=== PATIENT | female | born 1990 ===

== ENCOUNTER 2019-12-10 17:40 | Emergency (ER) | payer OTHER, SELFPAY ==
--- NOTE | 2019-12-10 | XR_ITS ---
EXAMINATION: XR CHEST CLINICAL INFORMATION: Painful cough COMPARISON: 09/14/2017 TECHNIQUE: Frontal view of the chest was obtained. FINDINGS: Lung volumes are low, decreased from the prior study. No focal consolidation or mass. Normal pulmonary vascularity. No pleural effusion or pneumothorax. Normal heart size. IMPRESSION: Low lung volumes but no acute pulmonary disease.
[2019-12-10 18:05] VITALS: BP 160/105; PULSE 104; RESP 22; TEMP 37.7; O2SAT 98
[2019-12-10 18:22] VITALS: BP 160/99; PULSE 98; RESP 18; TEMP 37.7; O2SAT 98; BMI 61.9
--- NOTE | 2019-12-10 19:18 | ED_ITS ---
HPI - General Adult General Chief complaint: General Medical <Ke Orourke NP - Last Filed: 12/10/19 19:23> Stated complaint: COUGH <Ke Orourke NP - Last Filed: 12/10/19 19:23> Time Seen by Provider: 12/10/19 19:18 <Ke Orourke NP - Last Filed: 12/10/19 19:23> Source: patient <Ke Orourke NP - Last Filed: 12/10/19 19:23> Mode of arrival: ambulatory <Ke Orourke NP - Last Filed: 12/10/19 19:23> Limitations: no limitations <Ke Orourke NP - Last Filed: 12/10/19 19:23> History of Present Illness HPI narrative: 29 old female with history of asthma states she had slight URI about a week and half ago or so and since then though symptoms resolved of rhinorrhea and congestion but now has had a nagging cough that just can not seem to go away. She denies any shortness of breath. Slight discomfort in the chest with the cough. No recent travel or sick contacts. No fluctuation weight. <Ke Orourke NP - Last Filed: 12/10/19 19:23> Onset (ago): week(s) <Ke Orourke NP - Last Filed: 12/10/19 19:23> Severity: moderate <Ke Orourke NP - Last Filed: 12/10/19 19:23> Quality: aching <Ke Orourke NP - Last Filed: 12/10/19 19:23> Treatments prior to arrival: none <Ke Orourke NP - Last Filed: 12/10/19 19:23> Related Data Home medications: Previous Rx's Medication Instructions Recorded albuterol sulfate 2 puff INHALATION 6XD PRN #18 g 12/10/19 azithromycin [Zithromax Z-José Miguel] 250 mg PO DAILY 5 Days #6 tab 12/10/19 prednisone 40 mg PO DAILY #10 tab 12/10/19 <Ke Orourke NP - Last Filed: 12/10/19 19:23> Allergies/adverse reactions: Allergies Allergy/AdvReac Type Severity Reaction Status Date / Time amoxicillin [Amoxicillin] Allergy Unknown UNKNOWN, Unverified 11/11/19 15:59 rash, rash walnut Allergy Unknown UNKNOWN Unverified 11/11/19 15:59 Walnuts Allergy Unknown itching Uncoded 04/26/19 00:00 walnuts Allergy Unknown throat Uncoded 09/14/19 00:00 itching <Ke Orourke NP - Last Filed: 12/10/19 19:23> Review of Systems Review of Systems: Constitutional: No Weight loss, No Fever, No Chills, No Night Sweats, No Fatigue, No Malaise ENT/Mouth: No Hearing loss, No Ear Pain, No Nasal Congestion, No Sinus Pain, No Hoarseness, No sore throat, No Rhinorrhea, No Swallowing Difficulty Eyes: No Eye Pain, No Swelling, No Redness, No Foreign Body, No Discharge, No Vision Changes Cardiovascular: No Chest Pain, No SOB, No Dyspnea on Exertion, No Orthopnea, No Edema, No Palpitations Respiratory: + Cough, No Sputum, No Wheezing, No Smoke Exposure, No Dyspnea Gastrointestinal: No Nausea, No Vomiting, No Diarrhea, No Constipation, No abdominal Pain, No Hematochezia, No Melena Genitourinary: no irregular bleeding, No Dysuria, No Urinary Frequency, No Hematuria, No Urinary Incontinence, No Urgency, No Flank Pain, No Urinary Flow Changes, No Hesitancy Musculoskeletal: No joint pain, No Myalgias, No Joint Swelling Skin: No Skin Lesions, No rash Neuro: No Weakness, No Numbness, No Paresthesias, No Loss of Consciousness, No Dizziness, No Headache Psych: No Anxiety/Panic, No Depression, No SI/HI/AH/VH, No Social Issues Heme/Lymph: No Bruising, No Bleeding,No Lymphadenopathy Endocrine: No Polyuria, No Polydipsia, No Temperature Intolerance <Ke Orourke NP - Last Filed: 12/10/19 19:23> Yes all other systems are reviewed and are negative <Ke Orourke NP - Last Filed: 12/10/19 19:23> PMFSH Past Medical History Attestation statement: The following information was validated with the patient. <Ke Orourke NP - Last Filed: 12/10/19 19:23> Medical History: Medical History (Updated 12/11/19 @ 00:01 by Armand Sutherland) Acute anxiety Anemia Asthma Depression HTN (hypertension) <Ke Orourke NP - Last Filed: 12/10/19 19:23> Social History Social History: Social History Alcohol intake: never Smoked in Last 30 Days: No Use of substances other than those prescribed or required for medical reasons: Yes Advance Directives: No Advance Directives Information Provided: No <Ke Orourke NP - Last Filed: 12/10/19 19:23> Physical Exam Vital Signs: Vital Signs: Vital Signs Temp Pulse Resp BP Pulse Ox 12/10/19 18:22 99.8 F 98 18 160/99 H 98 12/10/19 18:05 99.9 F 104 H 22 H 160/105 H 98 Body Mass Index 61.9 Reviwed <Ke Orourke NP - Last Filed: 12/10/19 19:23> Vital Signs: Vital Signs Temp Pulse Resp BP Pulse Ox 12/10/19 18:22 99.8 F 98 18 160/99 H 98 12/10/19 18:05 99.9 F 104 H 22 H 160/105 H 98 Body Mass Index 61.9 <Zack Das MD - Last Filed: 12/14/19 14:46> Const: General: cooperative and healthy appearing; No acute distress or intoxicated appearing <Ke Orourke NP - Last Filed: 12/10/19 19:23> Nutritional Appearance: average body habitus <Ke Orourke NP - Last Filed: 12/10/19 19:23> Orientation/consciousness: patient oriented x3 <Ke Orourke NP - Last Filed: 12/10/19 19:23> HENMT: Head: Yes normal to inspection <Ke Orourke NP - Last Filed: 11/24 08/13 19:23> Ears: hearing grossly normal bilaterally <Ke Orourke NP - Last Filed: 12/10/19 19:23> Eyes: General: appearance normal, both eyes and all related structures <Ke Orourke NP - Last Filed: 12/10/19 19:23> Visual Matthews: normal visual matthews by confrontation <Ke Orourke NP - Last Filed: 12/10/19 19:23> Neck: Neck: Yes normal visual inspection and No tender <Ke Orourke NP - Last Filed: 12/10/19 19:23> Thyroid: Thyroid normal <Ke Orourke - Last Filed: 12/10/19 19:23> Chest: Chest palpation & inspection: normal inspection of the chest [facility] Last Filed: 12/10/19 19:23> Resp: Other: Mild dry bronchial cough <[facility] - Last Filed: 12/10/19 19:23> Effort & Inspection: normal respiratory effort <[facility] - Last Filed: 12/10/19 19:23> Cardio: Jugular venous distension: no JVD <[facility] - Last Filed: 12/10/19 19:23> GI: Inspection: Yes normal to inspection <[facility] - Last Filed: 12/10/19 19:23> Percussion: Yes normal to percussion <[facility] - Last Filed: 12/10/19 19:23> Auscultation: normal bowel sounds <[facility] - Last Filed: 12/10/19 19:23> : General: Yes no CVA tenderness <[facility] - Last Filed: 12/10/19 19:23> Back/Spine/Pelvis: Back: no CVA tenderness <[facility] - Last Filed: 12/10/19 19:23> Skin: General skin exam: no rashes or lesions noted <[facility] - Last Filed: 12/10/19 19:23> Neuro: General: patient oriented x3 [facility] - Last Filed: 12/10/19 19:23> Extrem: General: Yes normal to inspection <[facility] - Last Filed: 12/10/19 19:23> Course Course Course Narrative: I have reviewed the chart <Zack Das MD - Last Filed: 12/14/19 14:46> Medical Decision Making Imaging Data Chest x-ray: Radiologist's impression: Phoebe Chapa 29 F [address] [address] XRay Report Signed Patient: Phoebe ChapaMR#: [id number] : 1990Acct:[id number] Age/Sex: 29 / FADM Date: 12/10/19 Loc: HO.ED Attending Dr: Ordering Physician: Ke Orourke NP Date of Service: 12/10/19 Procedure(s): XR chest 1V Accession Number(s): [id number] cc: Ke Orourke NP~ EXAMINATION: XR CHEST CLINICAL INFORMATION: Painful cough COMPARISON: 09/14/2017 TECHNIQUE: Frontal view of the chest was obtained. FINDINGS: Lung volumes are low, decreased from the prior study. No focal consolidation or mass. Normal pulmonary vascularity. No pleural effusion or pneumothorax. Normal heart size. IMPRESSION: Low lung volumes but no acute pulmonary disease. Dictated By:DELROY CANDELARIO MD Signed By:<Electronically signed by DELROY CANDELARIO MD in [place]>12/10/191845 DD/ 40 TD/TT: Assistant Fitness Manager: TF <Ke Orourke NP - Last Filed: 12/10/19 19:23> Discharge Plan Discharge Clinical Impression: Bronchitis <Ke Orourke NP - Last Filed: 12/10/19 19:23> Patient Disposition: Home, Self-Care <Ke Orourke NP - Last Filed: 12/10/19 19:23> Instructions: Acute Bronchitis (ED) <Ke Orourke NP - Last Filed: 12/10/19 19:23> Additional Instructions: Social distancing Self-isolation Take medication prescribed Will call you with the COVID-19 test results in 3-4 days Return if any concerns or worse symptoms otherwise do a phone call visit with her primary care doctor for follow-up in the next 5-7 days Thank you <Ke Orourke NP - Last Filed: 12/10/19 19:23> Prescriptions: New azithromycin [Zithromax Z-José Miguel] 250 mg tablet 250 mg PO DAILY 5 Days Qty: 6 RF: 0 prednisone 20 mg tablet 40 mg PO DAILY Qty: 10 RF: 0 albuterol sulfate 90 mcg/actuation HFA aerosol inhaler 2 puff inhalation 6XD PRN (Reason: shortness of breath or wheezing) Qty: 18 RF: 0 <Ke Orourke NP - Last Filed: 12/10/19 19:23> Referrals: Devyn Power MD [Primary Care Provider] - 10 days <Ke Orourke NP - Last Filed: 12/10/19 19:23> Interventions: ED Discharge Assessment Last Done: 12/10/19 19:27 <Ke Orourke NP - Last Filed: 12/10/19 19:23> Discharge Date/Time: 12/10/19 19:30 <Ke Orourke NP - Last Filed: 12/10/19 19:23>
== END 2019-12-10 19:30 | disposition home or self-care (01) ==
PROVIDERS: Nurse Practitioner Primary Care; Emergency Provider Emergency Medicine; PCP Internal Medicine
DX: R05 Cough (principal); Z20.828 Contact with and (suspected) exposure to other viral communicable diseases; Z79.899 Other long term (current) drug therapy
CPT/HCPCS: 71045; 87635; 99283; 99284

== ENCOUNTER → 2020-01-25 12:53 | Outpatient (BNV) | payer OTHER, SELFPAY | PROVIDERS: PCP Internal Medicine; Visit Provider Internal Medicine Medical Oncology | DX: D50.0 Iron deficiency anemia secondary to blood loss (chronic) (principal); N92.0 Excessive and frequent menstruation with regular cycle | CPT/HCPCS: 99212; 99213; 99214 ==

== ENCOUNTER 2020-02-03 08:32 | Outpatient (REF) | payer OTHER, SELFPAY | END 2020-02-03 08:33 | disposition home or self-care (01) | LOC: HO.MDS 08:32 | PROVIDERS: PCP Internal Medicine; Visit Provider Internal Medicine Medical Oncology | DX: D50.9 Iron deficiency anemia, unspecified (principal) | CPT/HCPCS: 96365; 96366; J1200; J1750; Q0163 ==

== ENCOUNTER 2020-02-07 02:12 | Emergency (ER) | payer OTHER, SELFPAY ==
[2020-02-07 02:21] VITALS: BP 185/89; PULSE 99; RESP 20; TEMP 37.1; O2SAT 98
[2020-02-07 02:55] VITALS: BP 185/89; PULSE 99; RESP 20; TEMP 37.1; O2SAT 98; BMI 61.7
--- NOTE | 2020-02-07 05:12 | ED_ITS ---
HPI - Dizziness General Chief Complaint: Dizziness Stated Complaint: dizziness Time Seen by Provider: 02/07/20 02:32 Source: patient Mode of arrival: ambulatory Limitations: no limitations History of Present Illness HPI Narrative: As 29-year-old female with medical history of hypertension, depression, anxiety, vertigo, and recently diagnosed with diabetes and started on metformin. She states that she has been having consistent and multiple nonbloody episodes diarrhea that are not associated with fevers, chills, shortness of breath, chest pain/palpitations, contaminated food, abdominal discomfort. In addition patient states that she has continued to suffer from thirst and urinary frequency but denies any urinary pain/burning. She states that her dizziness is probably more like a lightheadedness and has been persistent for the past couple of days but she has been able to perform her ADLs Related Data Home Medications Medication Instructions Recorded Confirmed hydrochlorothiazide 25 mg tablet 25 mg PO DAILY 02/01/20 02/01/20 Previous Rx's Medication Instructions Recorded albuterol sulfate 2 puff INHALATION 6XD PRN #18 g 12/10/19 azithromycin [Zithromax Z-José Miguel] 250 mg PO DAILY 5 Days #6 tab 12/10/19 prednisone 40 mg PO DAILY #10 tab 12/10/19 bupropion HCl 150 mg tablet,12 hr 150 mg PO Q12H 90 Days #180 tab 12/20/19 sustained-release metformin 500 mg tablet 500 mg PO BID 30 Days #60 tab 01/25/20 duloxetine 60 mg capsule,delayed 60 mg PO DAILY 30 Days #30 cap 02/01/20 release fluticasone 100 mcg-salmeterol 50 1 inh INHALATION BID 30 Days #60 ea 02/01/20 mcg/dose blistr powdr for inhalation nitrofurantoin monohyd/m-cryst 100 mg PO Q12H 5 Days #10 cap 02/07/20 [Macrobid] Allergies Allergy/AdvReac Type Severity Reaction Status Date / Time amoxicillin [Amoxicillin] Allergy Unknown UNKNOWN, Verified 02/07/20 02:55 rash, rash walnuts Allergy Unknown throat Uncoded 09/14/19 00:00 itching Review of Systems Review of Systems: Pertinent positives and negatives as stated in HPI 10 point review of systems otherwise negative. PMFSH Past Medical History Source: nursing notes reviewed Medical History Acute anxiety Anemia Asthma Depression Diabetes HTN (hypertension) Insomnia Leukocytosis Thrombocytosis Surgical History History of laparoscopic cholecystectomy Family History Family History Sister Brain tumor Maternal Uncle Throat cancer Paternal Grandmother Leukemia Mother Fibromyalgia Maternal Grandmother Cancer of kidney Social History Social History Alcohol intake: never Advance Directives: No Physical Exam Vital Signs: Vital Signs: Last Vital Signs Temp 98.7 F 02/07/20 02:55 Pulse 99 02/07/20 02:55 Resp 20 02/07/20 02:55 BP 185/89 H 02/07/20 02:55 Pulse Ox 98 02/07/20 02:55 Body Mass Index 61.7 VITAL SIGNS: Reviewed. GENERAL: Well developed, well nourished, in no acute distress. HEAD: Normocephalic/atraumatic, EYES: PERRLA, EOMI intact without pain, no nystagmus/pallor/icterus noted EARS: Ext canals without abnormality, TMs non-bulging and non-erythematous NOSE: Nares patent bilateral OROPHARYNX: no oral lesions noted, posterior pharynx clear and non-erythematous without noted tonsillar enlargement/erythema/exudates NECK: Supple, no adenopathy LUNGS: Normal breath sounds. No adventitious sounds or accessory muscle use. SpO2<98> CARDIOVASCULAR: Regular rate and rhythm without noted murmurs, no JVD or lower extremity edema. ABDOMEN: Soft, non-tender, non-distended with bowel sounds. No rigidity. No guarding. No palpable masses or hernias noted MUSCULOSKELETAL: No tenderness, deformities, or effusions noted on gross inspection. EXTREMITIES: No cyanosis, clubbing or edema. SKIN: Inspection of the skin reveals no rashes, ulcerations, jaundice, pallor, or petechiae. NEUROLOGIC: Alert and oriented x 4. Strength and sensation to light touch were grossly intact x 4, no pronator drift, cerebellar testing is intact, cranial nerves 2-12 are grossly intact.. Course Course Course Narrative: This is a 29-year-old female with history and clinical pres entation most consistent with dehydration secondary to combination diabetes with medication side effects of metformin with multiple episodes of diarrhea. -labs, urinalysis, urine , IV fluid resuscitation On re-evaluation patient appears much more comfortable and states that she feels better. Patient's dizziness clearly associated with mild dehydration secondary to diarrhea due to new medication (metformin). The significant leukocytosis is duly noted and on review of urinalysis this is the likely cause. As she is not febrile, tachycardic, or tachypneic she will be discharged on oral antibiotics with strict instructions to follow-up with her primary care provider. MDM - Dizziness Lab Data Result diagrams: 02/07/20 05:25 02/07/20 05:25 Labs: Lab Results 02/07/20 02/07/20 02/07/20 Range/Units 05:25 05:25 06:22 WBC 18.7 H (4.8-10.8) X10*3/uL RBC 4.32 (4.20-5.50) X10*6/uL Hgb 9.5 L (12.0-16.0) g/dl Hct 32.0 L (37-47) % MCV 74.1 L (80-98) fL MCH 22.0 L (27.0-33.0) pg MCHC 29.7 L (31.0-35.0) g/dl RDW 19.9 H (11.0-16.0) % Plt Count 615 H (160-400) X10*3/uL MPV 8.6 L (9.4-12.3) fL Immature Gran % (Auto) 1.2 H (0.0-0.4) % Neut % (Auto) 70.6 (45-73) % Lymph % (Auto) 22.1 (20-40) % Whitfield % (Auto) 4.8 (2-11) % Eos % (Auto) 0.9 (0-4) % Baso % (Auto) 0.4 (0-2) % Lymph # (Auto) 4.1 (1.2-4.9) X10*3/uL Whitfield # (Auto) 0.9 (0.1-1.2) X10*3/uL Eos # (Auto) 0.2 (0.0-0.4) X10*3/uL Baso # (Auto) 0.1 (0.0-0.2) X10*3/uL Abs Immat Gran (auto) 0.23 H (0.00-0.03) X10*3/uL Absolute Neuts (auto) 13.2 H (2.0-8.3) X10*3/uL Absolute Nucleated RBC 0.000 (0.0-0.012) X10*3/uL Nucleated RBC % (auto) 0.0 (0.0-0.2) /100WBC Sodium 136 (135-145) mmol/L Potassium 4.7 (3.3-5.1) mmol/l Chloride 103 (96-108) mmol/L Carbon Dioxide 24 (22-29) mmol/L Anion Gap 14 (12-20) BUN 15 (9-16) mg/dL Creatinine 0.76 (0.5-1.4) mg/dL Estim Creat Clear Calc 167.6 Estimated GFR > 60 Random Glucose 113 (60-115) mg/dL Calcium 9.2 (8.4-10.2) mg/dL Total Bilirubin 0.2 (0.0-1.0) mg/dL AST 10 (5-31) U/L ALT 9 (0-31) U/L Alkaline Phosphatase 71 (39-117) U/L Total Protein 8.0 (6.5-8.0) g/dL Albumin 4.3 (3.5-5.0) g/dL Urine Color YELLOW Urine Appearance HAZY Urine pH 5.5 (5.0-8.0) Ur Specific Lookout >= 1.030 H (1.005-1.025) Urine Protein NEG (NEG-TRACE) MG/DL Urine Glucose (UA) NEG (NEG) MG/DL Urine Ketones NEG (NEG) MG/DL Urine Blood NEG (NEG) Urine Nitrite NEG (NEG) Ur Leukocyte Esterase TRACE H (NEG) Urine RBC 1-4 (0) /HPF Urine WBC 5-9 H (0-4) /HPF Ur Squamous Epith Cells 2+ /LPF Urine Bacteria 2+ /LPF Urine Mucus 2+ /LPF Urine Test NEGATIVE (NEGATIVE) Acetone, Qual Negative (Negative) Discharge Plan Discharge Clinical Impression: Dehydration UTI (urinary tract infection) Qualifiers: Urinary tract infection type: site unspecified Hematuria presence: without hematuria Qualified Code(s): N39.0 - Urinary tract infection, site not specified Patient Disposition: Home, Self-Care Instructions: Urinary Tract Infection in Women (ED) Additional Instructions: Please resume all home medications as prescribed. You have been started on antibiotic for your UTI and you should complete this medication entirely. Please follow-up with your primary care provider in the next 2-3 days. Please increase fluid hydration especially water. Prescriptions: New nitrofurantoin monohyd/m-cryst [Macrobid] 100 mg capsule 100 mg PO Q12H 5 Days Qty: 10 RF: 0 No Action bupropion HCl [Wellbutrin SR] 150 mg tablet sustained-release 12 hr 150 mg PO Q12H 90 Days Qty: 180 RF: 0 azithromycin [Zithromax Z-José Miguel] 250 mg tablet 250 mg PO DAILY 5 Days Qty: 6 RF: 0 prednisone 20 mg tablet 40 mg PO DAILY Qty: 10 RF: 0 albuterol sulfate 90 mcg/actuation HFA aerosol inhaler 2 puff inhalation 6XD PRN (Reason: shortness of breath or wheezing) Qty: 18 RF: 0 metformin 500 mg tablet 500 mg PO BID 30 Days Qty: 60 RF: 1 hydrochlorothiazide 25 mg tablet 25 mg PO DAILY RF: 0 duloxetine [Cymbalta] 60 mg capsule,delayed release(DR/EC) 60 mg PO DAILY 30 Days Qty: 30 RF: 3 fluticasone propion-salmeterol [Advair Diskus] 100-50 mcg/dose blister with device 1 inh inhalation BID 30 Days Qty: 60 RF: 3 Referrals: Devyn Power MD [Primary Care Provider] - 2 days (Re-evaluation and management symptoms secondary to metformin)
[2020-02-07] MEDS: 0.9 % Sodium Chloride 2,000 ML 999 ML IV (05:26)
[2020-02-07 05:41] LABS: Basophils Absolute Auto 0.1 X10*3/uL (0.0-0.2); Basophils Percent Auto 0.4 % (0-2); Eosinophils Absolute Auto 0.2 X10*3/uL (0.0-0.4); Eosinophils Percent Auto 0.9 % (0-4); Hemoglobin 9.5 g/dl (12.0-16.0); Imm Gran Abs Auto 0.23 X10*3/uL (0.00-0.03); Imm Gran Pct Auto 1.2 % (0.0-0.4); Lymphocytes Absolute Auto 4.1 X10*3/uL (1.2-4.9); Lymphocytes Percent Auto 22.1 % (20-40); Mean Corpuscular HGB Conc 29.7 g/dl (31.0-35.0); Mean Corpuscular Volume 74.1 fL (80-98); Mean Platelet Volume 8.6 fL (9.4-12.3); Monocytes Absolute Auto 0.9 X10*3/uL (0.1-1.2); Monocytes Percent Auto 4.8 % (2-11); Neutrophils Absolute Auto 13.2 X10*3/uL (2.0-8.3); Neutrophils Percent Auto 70.6 % (45-73); Platelet Count 615 X10*3/uL (160-400); Red Blood Count 4.32 X10*6/uL (4.20-5.50); Red Cell Distribution Width 19.9 % (11.0-16.0); White Blood Count 18.7 X10*3/uL (4.8-10.8)
[2020-02-07 05:42] LABS: MANUAL DIFF FLAG NO
[2020-02-07 05:53] LABS: Acetone, serum QL Negative (Negative)
[2020-02-07 06:05] LABS: Alanine Aminotransferase 9 U/L (0-31); Albumin Level 4.3 g/dL (3.5-5.0); Alkaline Phosphatase 71 U/L (39-117); Anion Gap 14 (12-20); Aspartate Amino Transferase 10 U/L (5-31); Bilirubin Total 0.2 mg/dL (0.0-1.0); Blood Urea Nitrogen 15 mg/dL (9-16); Calcium 9.2 mg/dL (8.4-10.2); Carbon Dioxide 24 mmol/L (22-29); Chloride 103 mmol/L (96-108); Creatinine Clr Calc Pharmacy 167.6; Estimated Glomerular Filt Rate > 60; Glucose Random 113 mg/dL (60-115); Potassium 4.7 mmol/l (3.3-5.1); Sodium 136 mmol/L (135-145)
[2020-02-07 06:29] LABS: Glucose Urine UA NEG (NEG); Leukocyte Esterase Urine TRACE (NEG); Nitrite Urine NEG (NEG); PH 5.5 (5.0-8.0); Specific Gravity - Urine >= 1.030 (1.005-1.025); Urine Blood NEG (NEG); Urine Ketones NEG (NEG); Urine Protein NEG (NEG-TRACE)
[2020-02-07 06:32] LABS: Appearance Urine HAZY; Color Urine YELLOW
[2020-02-07 06:33] LABS: UPreg QC Valid YES; Urine Pregnancy NEGATIVE (NEGATIVE)
[2020-02-07 06:42] LABS: Bacteria Urine 2+ /LPF; Mucus Urine 2+ /LPF; Squamous Epithelial Cell Urine 2+ /LPF
[2020-02-07 07:04] VITALS: BP 155/73; PULSE 89; RESP 17; TEMP 37.6; O2SAT 97
[2020-02-07 07:48] LABS: Glucose, Whole Blood 121 mg/dL (60-115)
[2020-02-07 08:22] LABS: Glucose, Whole Blood 108 mg/dL (60-115)
== END 2020-02-07 07:22 | disposition home or self-care (01) ==
PROVIDERS: Emergency Provider Student in an Organized Health Care Education/Training Program; PCP Internal Medicine
DX: E86.0 Dehydration (principal); N39.0 Urinary tract infection, site not specified; I10 Essential (primary) hypertension; E11.9 Type 2 diabetes mellitus without complications; F41.9 Anxiety disorder, unspecified; Z79.84 Long term (current) use of oral hypoglycemic drugs
CPT/HCPCS: 36415; 80053; 81001; 81025; 82009; 82947; 85025; 87086; 96360; 96361; 99284

== ENCOUNTER → 2020-03-28 12:34 | Outpatient (BNVA) | payer OTHER, SELFPAY | PROVIDERS: PCP Internal Medicine; Visit Provider Student in an Organized Health Care Education/Training Program ==

== ENCOUNTER 2020-05-29 14:11 | Outpatient (REF) | payer OTHER, SELFPAY | END 2020-05-29 14:12 | disposition home or self-care (01) | LOC: HO.LNP 14:11 | PROVIDERS: Visit Provider Hospitalist | DX: J40 Bronchitis, not specified as acute or chronic (principal); Z20.822 Contact with and (suspected) exposure to COVID-19 | CPT/HCPCS: U0003; U0005 ==

== ENCOUNTER 2020-08-18 16:19 | Outpatient (REF) | payer OTHER, SELFPAY ==
[2020-08-18 18:12] LABS: Estimated Average Glucose 126 mg/dL
[2020-08-18 18:27] LABS: Alanine Aminotransferase 7 U/L (0-31); Albumin Level 4.4 g/dL (3.5-5.0); Alkaline Phosphatase 85 U/L (39-117); Anion Gap 14 (12-20); Aspartate Amino Transferase 10 U/L (5-31); Bilirubin Total 0.2 mg/dL (0.0-1.0); Blood Urea Nitrogen 17 mg/dL (9-16); Calcium 9.6 mg/dL (8.4-10.2); Carbon Dioxide 25 mmol/L (22-29); Chloride 103 mmol/L (96-108); Creatinine Urine 264.07 mg/dL; Estimated Glomerular Filt Rate > 60; Glucose Random 141 mg/dL (60-115); Microalbum/Creatinine Ratio Ur 12.8 ug/mg cr; Potassium 4.6 mmol/L (3.3-5.1); Sodium 137 mmol/L (135-145); Total Protein 7.9 g/dL (6.5-8.0)
[2020-08-20 09:02] LABS: LDL Cholesterol Direct 119 mg/dL (<100)
== END 2020-08-18 16:20 | disposition home or self-care (01) ==
LOC: HO.LAB 16:19
PROVIDERS: PCP Internal Medicine; Referring Provider Internal Medicine; Visit Provider Internal Medicine Medical Oncology
DX: E11.9 Type 2 diabetes mellitus without complications (principal); E66.01 Morbid (severe) obesity due to excess calories; F41.8 Other specified anxiety disorders; I10 Essential (primary) hypertension; J45.40 Moderate persistent asthma, uncomplicated; R04.0 Epistaxis
CPT/HCPCS: 36415; 80053; 82043; 83036; 83721

== ENCOUNTER → 2020-11-02 14:03 | Outpatient (BNVA) | payer OTHER, SELFPAY | PROVIDERS: PCP Internal Medicine; Visit Provider Physician Assistant ==

== ENCOUNTER 2020-11-20 07:55 | Outpatient (REF) | payer OTHER, SELFPAY | END 2020-11-20 07:56 | disposition home or self-care (01) | LOC: HO.MDS 07:55 | PROVIDERS: Visit Provider Internal Medicine Medical Oncology | DX: D50.9 Iron deficiency anemia, unspecified (principal) | CPT/HCPCS: 96365; 96366; J1200; J1750; Q0163 ==

== ENCOUNTER → 2021-05-24 12:23 | Outpatient (BNVA) | payer OTHER, SELFPAY | PROVIDERS: PCP Internal Medicine; Visit Provider Nurse Practitioner Family | DX: M79.7 Fibromyalgia (principal) | CPT/HCPCS: 99212 ==

== ENCOUNTER 2021-06-01 14:45 | Outpatient (REF) | payer OTHER, SELFPAY ==
[2021-06-01 16:27] LABS: MANUAL DIFF FLAG NO
[2021-06-01 16:32] LABS: Basophils Absolute Auto 0.1 X10*3/uL (0.0-0.2); Basophils Percent Auto 0.5 % (0-2); Eosinophils Absolute Auto 0.1 X10*3/uL (0.0-0.4); Eosinophils Percent Auto 1.3 % (0-4); Hematocrit 36.4 % (37.0-47.0); Imm Gran Abs Auto 0.07 X10*3/uL (0.00-0.03); Imm Gran Pct Auto 0.6 % (0.0-0.4); Lymphocytes Absolute Auto 3.2 X10*3/uL (1.2-4.9); Lymphocytes Percent Auto 29.4 % (20-40); Mean Corpuscular HGB Conc 30.2 g/dl (31.0-35.0); Mean Corpuscular Hemoglobin 24.2 pg (27.0-33.0); Mean Corpuscular Volume 80.2 fL (80.0-98.0); Mean Platelet Volume 8.8 fL (9.4-12.3); Monocytes Absolute Auto 0.6 X10*3/uL (0.1-1.2); Monocytes Percent Auto 5.9 % (2-11); Neutrophils Absolute Auto 6.7 x10*3/uL (2.0-8.3); Neutrophils Percent Auto 62.3 % (45-73); Platelet Count 572 X10*3/uL (160-400); Red Blood Count 4.54 X10*6/uL (4.20-5.50); Red Cell Distribution Width 16.3 % (11.0-16.0); White Blood Count 10.8 X10*3/uL (4.8-10.8)
[2021-06-01 16:43] LABS: Alanine Aminotransferase 11 U/L (0-31); Albumin Level 4.3 g/dL (3.5-5.0); Alkaline Phosphatase 72 U/L (39-117); Anion Gap 12 (12-20); Aspartate Amino Transferase 11 U/L (5-31); Bilirubin Total 0.4 mg/dL (0.0-1.0); Blood Urea Nitrogen 12 mg/dL (9-16); Calcium 9.6 mg/dL (8.4-10.2); Carbon Dioxide 27 mmol/L (22-29); Chloride 103 mmol/L (96-108); Estimated Glomerular Filt Rate > 60; Glucose Random 112 mg/dL (60-115); Potassium 4.5 mmol/L (3.3-5.1); Sodium 137 mmol/L (135-145); Total Protein 7.7 g/dL (6.5-8.0)
[2021-06-01 16:44] LABS: Estimated Average Glucose 143 mg/dL; Hemoglobin A1c % 6.6 %
[2021-06-01 16:53] LABS: Creatinine Urine 168.75 mg/dL; Microalbum/Creatinine Ratio Ur 13.6 ug/mg cr
[2021-06-01 17:06] LABS: Ferritin 13 ng/mL (10-122); TSH reflex Free T4 2.51 uIU/mL (0.32-4.0)
[2021-06-03 05:57] LABS: LDL Cholesterol Direct 108 mg/dL (<100)
== END 2021-06-01 14:46 | disposition home or self-care (01) ==
LOC: HO.HMGCLDS 14:45
PROVIDERS: Absent Provider Internal Medicine; PCP Internal Medicine; Visit Provider Internal Medicine Medical Oncology
DX: E66.01 Morbid (severe) obesity due to excess calories (principal); F32.2 Major depressive disorder, single episode, severe without psychotic features; F41.1 Generalized anxiety disorder; G44.89 Other headache syndrome; I10 Essential (primary) hypertension; J45.909 Unspecified asthma, uncomplicated; R45.851 Suicidal ideations; D47.3 Essential (hemorrhagic) thrombocythemia
CPT/HCPCS: 36415; 80053; 82043; 82728; 83036; 83721; 84443; 85025

== ENCOUNTER 2021-08-07 14:07 | Outpatient (REF) | payer OTHER, SELFPAY ==
--- NOTE | ~2021-08-07 | US_ITS ---
EXAMINATION: US RETROPERITONEAL LIMITED (RENAL ONLY) CLINICAL INFORMATION: Dorsalgia, unspecified. COMPARISON: CT abdomen and pelvis 03/14/2013. TECHNIQUE: Real-time imaging of the kidneys. FINDINGS: RIGHT KIDNEY: 13.9 x 5.4 x 5.2 cm (SAG x AP x TRV). The kidney is normal in size, contour, and echogenicity. Renal cortical thickness is normal. No calculi or focal parenchymal lesions. No hydronephrosis. LEFT KIDNEY: 13.3 x 5.9 x 4.2 cm (SAG x AP x TRV). The kidney is normal in size, contour, and echogenicity. Renal cortical thickness is normal. No calculi or focal parenchymal lesions. No hydronephrosis. US/US renal BI IMPRESSION: Normal renal ultrasound..
== END 2021-08-07 14:08 | disposition home or self-care (01) ==
LOC: HO.US 14:07
PROVIDERS: PCP Internal Medicine; Visit Provider Internal Medicine
DX: M54.9 Dorsalgia, unspecified (principal); Z80.51 Family history of malignant neoplasm of kidney
CPT/HCPCS: 76775

== ENCOUNTER 2021-08-09 20:09 | Emergency (ER) | payer OTHER, SELFPAY ==
[2021-08-09 20:19] VITALS: BP 150/90; PULSE 103; O2SAT 95
[2021-08-09 20:49] VITALS: BP 179/107; PULSE 90; RESP 18; TEMP 36.8; O2SAT 96; BMI 46.3
[2021-08-09 21:09] VITALS: BP 151/96; PULSE 85; RESP 18; TEMP 37; O2SAT 96
[2021-08-09] MEDS: Ondansetron ODT 4 MG TAB.RAPDIS TRANSLINGU (21:47)
--- NOTE | 2021-08-09 21:49 | ED_ITS ---
HPI - General Adult General Chief complaint: General Medical Stated complaint: Med reaction Time Seen by Provider: 08/09/21 21:36 Source: patient and family Mode of arrival: ambulatory Limitations: no limitations History of Present Illness HPI narrative: 31-year-old female with a history of anxiety, depression, high blood pressure, asthma, diabetes, fibromyalgia here with reports of headache, nausea, vomiting, diarrhea and upper abdominal discomfort after taking a dose of Cymbalta and amitriptyline. Patient tells me she accidentally took these medications together at 19:00 and about 20 minutes later she developed her symptoms. Patient tells me she is overall feeling improved but still has some slight nausea. Patient tells me that she was having a bad mental health day. which she describes as feeling anxious and unable to sleep. She took these medications so she would feel more relaxed and so she can not fall asleep tonight. She denies any suicidal or homicidal ideations. Related Data Home Medications Medication Instructions Recorded Confirmed gabapentin 300 mg capsule 300 mg PO BEDTIME 05/24/21 06/01/21 Previous Rx's Medication Instructions Recorded albuterol sulfate 90 mcg/actuation 2 puff inhalation 6XD PRN 12/10/19 aerosol inhaler shortness of breath or wheezing #18 grams blood-glucose meter (FreeStyle #1 ea 02/23/20 Lite Meter) duloxetine 60 mg capsule,delayed 60 mg PO DAILY 30 days #30 caps 10/09/20 release (Cymbalta) amitriptyline 25 mg tablet 25 mg PO BEDTIME #30 tabs 10/10/20 lancets 30 gauge #100 ea 10/31/20 alcohol swabs (Alcohol Prep Pads) 1 pad topical DAILY #100 ea 03/13/21 losartan 25 mg tablet 50 mg PO DAILY 30 days #60 tabs 04/05/21 hydrochlorothiazide 25 mg tablet 25 mg PO DAILY #30 tabs 04/09/21 blood sugar diagnostic (FreeStyle #50 ea 05/15/21 Lite Strips) fluticasone 100 mcg-salmeterol 50 1 inh inhalation BID 30 days #60 ea 05/21/21 mcg/dose blistr powdr for inhalation (Advair Diskus) glipizide 5 mg tablet 2.5 mg PO DAILY 90 days #45 tabs 07/10/21 bupropion HCl 300 mg 24 hr tablet, 300 mg PO QAM 90 days #90 tabs 07/18/21 extended release Allergies Allergy/AdvReac Type Severity Reaction Status Date / Time amoxicillin [Amoxicillin] Allergy Unknown rash Verified 08/09/21 20:49 walnut Allergy Unknown throat Verified 08/09/21 20:49 itching Review of Systems Review of Systems: Yes all other systems are reviewed and are negative Constitutional: Constitutional: Reports no additional constitutional complaints, Denies body ache(s), Denies chills, Denies fever(s), Reports headache(s) and Denies weakness Eyes: Eyes: Reports no additional eye complaints and Denies change in vision ENT: Reports system reviewed and no additional complaints, except as documented, Denies dizziness, Reports headache(s), Denies nasal congestion, Denies nasal discharge and Denies neck pain Cardiovascular: Cardiovascular: Reports no additional cardiovascular complaints, Denies chest pain, Denies leg edema and Denies dyspnea Respiratory: Respiratory: Reports no additional respiratory complaints, Denies cough and Denies dyspnea Gastrointestinal: Gastrointestinal: Reports no additional gastrointestinal complaints, Reports abdominal pain, Reports diarrhea, Reports nausea and Reports vomiting Genitourinary: Genitourinary: Reports no additional female genitourinary complaints and Denies urinary incontinence Musculoskeletal: Musculoskeletal: Reports no additional musculoskeletal complaints, Denies back pain, Denies arthralgias, Denies joint swelling, Denies neck pain, Denies numbness and Denies tingling Integumentary/Breasts: Skin/Breast: Reports system reviewed and no additional complaints, except as docu and Denies rash Neurologic: Reports system reviewed and no additional complaints, except as documented, Denies dizziness, Reports headache(s), Denies numbness, Denies tingling and Denies weakness [facility] Past Medical History Attestation statement: The following information was validated with the patient. Source: old records reviewed and nursing notes reviewed Medical History Asthma Depression Insomnia Leukocytosis Thrombocytosis Surgical History History of esophagogastroduodenoscopy (EGD) History of laparoscopic cholecystectomy Family History Family History Sister Brain tumor Maternal Uncle Throat cancer Paternal Grandmother Leukemia Mother Fibromyalgia Maternal Grandmother Cancer of kidney Brother No problems noted. Brother No problems noted. Other Mental health disorder Substance use disorder Social History Social History Housing: Apartment Alcohol intake: never Patient Tobacco Use Status: Never used Tobacco e-Cigarette/Vaping Use: Never Used Use of substances other than those prescribed or required for medical reasons: No Advance Directives: No Current occupational status: unemployed Cognitive needs: No Hearing needs: No Vision needs: No Physical Exam ED Vital Signs: Vital Signs - 24 hr 08/09/21 20:49 08/09/21 21:09 08/09/21 22:46 Temperature 98.3 F 98.6 F Pulse Rate 90 85 79 Respiratory Rate 18 18 16 Blood Pressure 179/107 H 151/96 H 161/95 H Pulse Oximetry 96 96 94 Oxygen Delivery Method Room Air Room Air Room Air BMI result Body Mass Index 46.3 Const General: cooperative, healthy appearing and comfortable Orientation/consciousness: patient oriented x3 Limitations: no limitations HENMT Head: Yes normal to inspection Ears: hearing grossly normal bilaterally General nose exam: Normal external nose present Face and sinus: Yes normal facial exam Mouth: Normal oral and palatal mucosa present Teeth and gingiva: dentition normal Throat: Yes posterior oropharynx normal, Yes tonsils normal and Yes uvula midline Eyes General: appearance normal, both eyes and all related structures Pupils: Equal, round and reactive pupils present Neck Neck: Yes normal visual inspection Chest Chest palpation & inspection: normal inspection of the chest Resp Effort & Inspection: normal respiratory effort Auscultation: clear to auscultation bilaterally Cardio Rate: regular rate Rhythm: regular rhythm Peripheral pulses: Peripheral pulses 2+ throughout GI Inspection: Yes normal to inspection Palpation (GI): Soft to palpation and nontender Back/Spine/Pelvis Thoracic/Lumbar Spine: thoracic and lumbar spine normal to inspection Skin General skin exam: no rashes or lesions noted Neuro General: patient oriented x3 and moves all extremities Cranial nerves: Yes CN's II-XII intact bilaterally, Yes Equal, round and reactive pupils present, Yes Bilaterally intact EOM present, Yes Nystagmus not present and Yes Normal facial strength present Cognition (Neuro): normal cognition Gait exam (Neuro): Normal gait present Motor exam (neuro): 5/5 motor strength present throughout Sensory Exam: Normal double simultaneous stimulation for sensation Extrem General: Yes normal to inspection, Yes no pedal edema and Yes no calf tenderness Course Course Course Narrative: 2300-patient tells me she is feeling improved. No nausea or vomiting. She is tolerating p.o.. Reviewed worrisome signs and symptoms of when to return to the emergency department. Comfortable discharge home. Medical Decision Making MDM Narrative Medical decision making narrative: 31-year-old female here with reports of nausea, vomiting, diarrhea, upper abdominal discomfort, headache after taking a dose of Cymbalta and amitriptyline to gather. Her symptoms are all improving with the exception of some mild nausea. Will give sublingual Zofran and reassess. Vitals are stable. Exam is benign Medical Records Medical records reviewed: Yes I reviewed the patient's medical records. Lab Data Lab results reviewed: Yes I reviewed the patient's lab results. Discharge Plan Discharge Clinical Impression: Medication reaction Patient Disposition: Home, Self-Care Instructions: Acute Nausea and Vomiting (ED) Additional Instructions: Taking medications as prescribed. Do not mix your medications Prescriptions: No Action duloxetine [Cymbalta] 60 mg capsule,delayed release(DR/EC) 60 mg PO DAILY 30 Days Qty: 30 3RF amitriptyline 25 mg tablet 25 mg PO BEDTIME Qty: 30 5RF (DME) lancets 30 gauge misc See Rx Instructions .ROUTE .MEDSUPPLY Qty: 100 0RF Rx Instructions: Check blood sugar daily or as needed for symptomatic low or high glucose alcohol swabs [Alcohol Prep Pads] Pads, Medicated 1 pad topical DAILY Qty: 100 3RF losartan 25 mg tablet 50 mg PO DAILY 30 Days Qty: 60 0RF hydrochlorothiazide 25 mg tablet 25 mg PO DAILY Qty: 30 2RF (DME) FreeStyle Lite Strips Strip See Rx Instructions .ROUTE .MEDSUPPLY Qty: 50 2RF Rx Instructions: Check blood sugar daily or as needed for symptomatic low or high glucose fluticasone propion-salmeterol [Advair Diskus] 100-50 mcg/dose blister with device 1 inh inhalation BID 30 Days Qty: 60 3RF glipizide 5 mg tablet 2.5 mg PO DAILY 90 Days Qty: 45 0RF bupropion HCl 300 mg tablet extended release 24 hr 300 mg PO QAM 90 Days Qty: 90 0RF albuterol sulfate 90 mcg/actuation HFA aerosol inhaler 2 puff inhalation 6XD PRN (Reason: shortness of breath or wheezing) Qty: 18 0RF (DME) blood-glucose meter [FreeStyle Lite Meter] Kit See Rx Instructions .ROUTE .MEDSUPPLY Qty: 1 0RF Rx Instructions: Check blood sugar daily or as needed for symptomatic low or high glucose gabapentin 300 mg capsule 300 mg PO BEDTIME Interventions: ED Discharge Assessment Last Done: 08/09/21 22:52 Discharge Date/Time: 08/09/21 22:53
[2021-08-09 22:46] VITALS: BP 161/95; PULSE 79; RESP 16; O2SAT 94
== END 2021-08-09 22:53 | disposition home or self-care (01) ==
PROVIDERS: Emergency Provider Emergency Medicine Emergency Medical Services; PCP Internal Medicine
DX: R11.2 Nausea with vomiting, unspecified (principal); R51.9 Headache, unspecified; T43.215A Adverse effect of selective serotonin and norepinephrine reuptake inhibitors, initial encounter; T43.015A Adverse effect of tricyclic antidepressants, initial encounter; Y92.019 Unspecified place in single-family (private) house as the place of occurrence of the external cause
CPT/HCPCS: 99283

== ENCOUNTER 2022-03-29 12:59 | Outpatient (REF) | payer OTHER, SELFPAY | END 2022-03-29 13:00 | disposition home or self-care (01) | LOC: HO.MDS 12:59 | PROVIDERS: PCP Internal Medicine; Visit Provider Internal Medicine Medical Oncology | DX: D50.9 Iron deficiency anemia, unspecified (principal) | CPT/HCPCS: 96365; J1756 ==

== ENCOUNTER 2022-04-05 12:57 | Outpatient (REF) | payer OTHER, SELFPAY | END 2022-04-05 12:58 | disposition home or self-care (01) | LOC: HO.MDS 12:57 | PROVIDERS: Visit Provider Internal Medicine Medical Oncology | DX: D50.9 Iron deficiency anemia, unspecified (principal) | CPT/HCPCS: 96365; J1756 ==

== ENCOUNTER 2022-04-12 12:57 | Outpatient (REF) | payer OTHER, SELFPAY | END 2022-04-12 12:58 | disposition home or self-care (01) | LOC: HO.MDS 12:57 | PROVIDERS: Visit Provider Internal Medicine Medical Oncology | DX: D50.9 Iron deficiency anemia, unspecified (principal) | CPT/HCPCS: 96365; J1756 ==

== ENCOUNTER 2022-04-19 12:58 | Outpatient (REF) | payer OTHER, SELFPAY ==
[2022-04-19 14:12] LABS: MANUAL DIFF FLAG NO
[2022-04-19 14:15] LABS: Basophils Absolute Auto 0.1 X10*3/uL (0.0-0.2); Basophils Percent Auto 0.4 % (0-2); Eosinophils Absolute Auto 0.1 X10*3/uL (0.0-0.4); Hematocrit 32.9 % (37.0-47.0); Hemoglobin 9.8 g/dl (12.0-16.0); Imm Gran Abs Auto 0.06 X10*3/uL (0.00-0.03); Imm Gran Pct Auto 0.5 % (0.0-0.4); Lymphocytes Absolute Auto 2.2 X10*3/uL (1.2-4.9); Lymphocytes Percent Auto 19.8 % (20-40); Mean Corpuscular HGB Conc 29.8 g/dl (31.0-35.0); Mean Corpuscular Hemoglobin 21.9 pg (27.0-33.0); Mean Corpuscular Volume 73.6 fL (80.0-98.0); Mean Platelet Volume 8.3 fL (9.4-12.3); Monocytes Absolute Auto 0.6 X10*3/uL (0.1-1.2); Monocytes Percent Auto 4.9 % (2-11); Neutrophils Absolute Auto 8.3 x10*3/uL (2.0-8.3); Neutrophils Percent Auto 73.4 % (45-73); Platelet Count 517 X10*3/uL (160-400); Red Blood Count 4.47 X10*6/uL (4.20-5.50); Red Cell Distribution Width 22.5 % (11.0-16.0); White Blood Count 11.3 X10*3/uL (4.8-10.8)
== END 2022-04-19 12:59 | disposition home or self-care (01) ==
LOC: HO.MDS 12:58
PROVIDERS: Visit Provider Internal Medicine Medical Oncology
DX: D50.9 Iron deficiency anemia, unspecified (principal)
CPT/HCPCS: 36415; 85025; 96365; J1756

== ENCOUNTER 2022-04-26 14:21 | Outpatient (REF) | payer OTHER, SELFPAY | END 2022-04-26 14:22 | disposition home or self-care (01) | LOC: HO.MDS 14:21 | PROVIDERS: Visit Provider Internal Medicine Medical Oncology | DX: D50.9 Iron deficiency anemia, unspecified (principal) | CPT/HCPCS: 96365; J1756 ==

== ENCOUNTER 2022-05-03 13:08 | Outpatient (REF) | payer OTHER, SELFPAY | END 2022-05-03 13:09 | disposition home or self-care (01) | LOC: HO.MDS 13:08 | PROVIDERS: Visit Provider Internal Medicine Medical Oncology | DX: D50.9 Iron deficiency anemia, unspecified (principal) | CPT/HCPCS: 96365; J1756 ==

== ENCOUNTER 2022-05-10 13:02 | Outpatient (REF) | payer OTHER, SELFPAY | END 2022-05-10 13:03 | disposition home or self-care (01) | LOC: HO.MDS 13:02 | PROVIDERS: Visit Provider Internal Medicine Medical Oncology | DX: D50.9 Iron deficiency anemia, unspecified (principal) | CPT/HCPCS: 96365; J1756 ==

== ENCOUNTER 2022-05-17 13:03 | Outpatient (REF) | payer OTHER, SELFPAY ==
[2022-05-17 14:02] LABS: Baso%MD 0.6 %; Eos%MD 1.4 %; Hematocrit 36.3 % (37.0-47.0); Hemoglobin 11.1 g/dl (12.0-16.0); IG%MD 0.6 %; Lymph%MD 31.9 %; Mean Corpuscular HGB Conc 30.6 g/dl (31.0-35.0); Mean Corpuscular Volume 78.6 fL (80.0-98.0); Mean Platelet Volume 8.7 fL (9.4-12.3); Mono%MD 5.3 %; Neut%MD 60.2 %; Platelet Count 499 X10*3/uL (160-400); Red Blood Count 4.62 X10*6/uL (4.20-5.50); White Blood Count 12.4 X10*3/uL (4.8-10.8)
[2022-05-17 14:34] LABS: Band Neutrophils Percent 0 % (3-5); Eosinophils Absolute Manual 0.2 X10*3/uL (0.0-0.4); Eosinophils Percent Manual 2 % (0-4); Lymphocytes Absolute Manual 4.3 X10*3/uL (1.2-4.9); Lymphocytes Percent Manual 35 % (20-40); Monocytes Absolute Manual 0.2 X10*3/uL (0.1-1.2); Monocytes Percent Manual 2 % (2-11); Neutrophils Absolute Manual 7.6 X10*3/uL (2.0-8.3); Neutrophils Percent Manual 61 % (45-73)
[2022-05-17 14:35] LABS: Microcytosis 1+ (5-14) /OIF; RBC Morphology NOTED
[2022-05-17 14:36] LABS: Platelet Estimate SLIGHTLY DECREASED (NORMAL)
[2022-05-17 14:37] LABS: Platelet Morphology Comment NORM; Polychromasia 1+ (0-2) /OIF
== END 2022-05-17 13:04 | disposition home or self-care (01) ==
LOC: HO.MDS 13:03
PROVIDERS: Visit Provider Internal Medicine Medical Oncology
DX: D50.9 Iron deficiency anemia, unspecified (principal)
CPT/HCPCS: 36415; 85007; 85027; 96365; J1756

== ENCOUNTER → 2022-07-08 11:07 | Outpatient (REF) | payer OTHER, SELFPAY ==
--- NOTE | 2022-07-08 12:01 | ECG_ITS ---
Test Reason : RX MONITORING Blood Pressure : / mmHG Vent. Rate : 088 BPM Atrial Rate : 088 BPM P-R Int : 172 ms QRS Dur : 090 ms QT Int : 360 ms P-R-T Axes : 043 014 032 degrees QTc Int : 435 ms Normal sinus rhythm Minimal voltage criteria for LVH, may be normal variant ( R in aVL ) Nonspecific T wave abnormality Abnormal ECG When compared with ECG of 26-FEB-2019 22:16, Nonspecific T wave abnormality, worse in Lateral leads Referred By: Hilaria Thompson Electronically Signed By:Matheus Juarez
== END ==
LOC: HO.CARD 11:07
PROVIDERS: PCP Internal Medicine; Visit Provider Nurse Practitioner Family
DX: M79.7 Fibromyalgia (principal); Z51.81 Encounter for therapeutic drug level monitoring; Z79.899 Other long term (current) drug therapy
CPT/HCPCS: 93005; 99212

== ENCOUNTER 2022-10-01 14:09 | Outpatient (AMB) | payer OTHER, SELFPAY ==
--- NOTE | 2022-10-01 14:10 | A.OFFPC_ITS ---
Vital Signs 10/01/22 14:11 Height 5 ft 5 in Weight 368 lb 2 oz BMI 61.3 BP 142/82 H Blood Pressure Location Lt radial Position Sitting Pulse 97 Pulse Source Pulse Oximeter Pulse Oximetry (%) 96 Oxygen Delivery Method Room Air Intake Visit Reasons: Physical Allergies amoxicillin [Amoxicillin] Allergy (Unknown, Verified 10/01/22 14:11) rash walnut Allergy (Unknown, Verified 10/01/22 14:11) throat itching Medication List - Last Reconciled 10/01/22 by Devyn Power MD albuterol sulfate 90 mcg/actuation (Ventolin HFA) 1 inh inhalation QID PRN 30 days alcohol swabs (Alcohol Prep Pads) 1 pad topical DAILY amitriptyline 25 mg PO BEDTIME blood sugar diagnostic (FreeStyle Lite Strips) Check blood sugar daily or as needed for symptomatic low or high glucose blood-glucose meter (FreeStyle Lite Meter kit) Check blood sugar daily or as needed for symptomatic low or high glucose bupropion HCl 300 mg PO QAM 90 days duloxetine (Cymbalta) 60 mg PO DAILY 90 days fluticasone propion-salmeterol 100-50 mcg/dose (Advair Diskus) 1 inh inhalation BID 30 days gabapentin 300 mg PO BEDTIME glipizide 2.5 mg (1/2 x 5 mg) PO DAILY 90 days hydrochlorothiazide 25 mg PO DAILY lancets Check blood sugar daily or as needed for symptomatic low or high glucose lorazepam 0.5 mg PO DAILY PRN 30 days losartan 50 mg PO DAILY 90 days ondansetron HCl 4 mg PO Q8H PRN 7 days Tobacco use date assessed: 10/01/22 Dental Screening Dental Screen Date: 10/01/22 Did you have a dental visit in the last 12 months?: Yes Did you have a dental problem in the last 6 months where you did not have access to dental care?: No Was dental information given to patient?: No HPI Physical HPI Details Physical exam appointment Has appointment with [facility] coming up Patient is diabetic her hemoglobin A1c is 6.8 today She is taking 2.5 mg of glipizide and tells me that she frequently feels her sugar is low I am stopping the medication, she is to control diet and will continue to monitor the hemoglobin A1c. Medication list reviewed Patient had labs done recently reviewed Having difficulty losing weight Blood pressure is running high I am increasing her losartan to 50 mg continue hydrochlorothiazide as well. Patient is anemic she is seeing hematology for management Continued to have heavy menstrual cycle Asthma is stable with Advair she is taking Wellbutrin 300 mg and duloxetine 60 mg , and lorazepam 0.5 once a day as needed Patient is also on gabapentin 300 mg at night for fibromyalgia Still has not seen psychiatrist old psychiatric medications are coming from PCP office Patient need to return every 3 months for follow-up appointment due to number of medications she is taking. [facility] Medical History Acute anxiety Anemia Asthma Depression Diabetes Fibromyalgia HTN (hypertension) Insomnia Leukocytosis Thrombocytosis Surgical History History of esophagogastroduodenoscopy (EGD) History of laparoscopic cholecystectomy Family History Sister Brain tumor Maternal Uncle Throat cancer Paternal Grandmother Leukemia Mother Fibromyalgia Maternal Grandmother Cancer of kidney Brother No problems noted. Brother No problems noted. Other Mental health disorder Substance use disorder Social History Household Members: Family Housing: Apartment Are you a primary child care counselor to a significant other at home: No Do you presently have visiting nurse or other home services: No Alcohol intake: never Patient Tobacco Use Status: Never used Tobacco e-Cigarette/Vaping Use: Never Used Current occupational status: unemployed Cognitive needs: No Hearing needs: No Vision needs: No Questionnaire PHQ-9 Over the last 2 weeks, how often have you been bothered by any of the following problems? 1. Little interest or pleasure in doing things: nearly every day 2. Feeling down, depressed, or hopeless: nearly every day 3. Trouble falling or staying asleep, or sleeping too much: nearly every day 4. Feeling tired or having little energy: nearly every day 5. Poor appetite or overeating: more than half the days 6. Feeling bad about yourself - or that you are a failure or have let yourself or your family down: nearly every day 7. Trouble concentrating on things, such as reading the newspaper or watching television: several days 8. Moving or speaking so slowly that other people could have noticed. Or the opposite - being so fidgety or restless that you have been moving around a lot more than usual: more than half the days 9. Thoughts that you would be better off or of hurting yourself in some way: nearly every day Total score: 23 Depression Screening Interpretation: Positive 31128 - PHQ-9 Billing: Yes Source: Developed by Drs. Bogdan Ann, Karyn Joe, Miko Thomas and colleagues, with an educational krystyna from [employer]. Thrive Questionnaire Date Thrive assessed: 10/01/22 I am a: Patient What is your living situation today?: I have a steady place to live Within the past 12 months, did the food you bought not last and you didn't have the money to get more?: Sometimes True Within the past 12 months, did you worry whether your food would run out before you got money to buy more?: Sometimes True Do you have trouble paying for medicines?: No Do you have trouble getting transportation to medical appointments?: No Do you have trouble paying your heating and electricity bill?: No Do you have trouble taking care of your child, family member or friend?: Yes Do you have trouble with day-to-day activities such as bathing, preparing meals, shopping, managing finances, etc.?: Yes Are you currently unemployed and looking for a job?: No Are you interested in more education?: Yes AUDIT C Alcohol Use Questionnaire (AUDIT-C) 1. How often do you have a drink containing alcohol?: Never 3. How often do you have six or more drinks on one occasion?: Never Total Score: 0 Score Reviewed/Action Taken: Yes RAJIV-7 AMB Questionnaire RAJIV-7 Date RAJIV - 7 assessed: 10/01/22 Feeling nervous, anxious, or on edge: 3 = Nearly every day Not being able to stop or control worryin = More than half the days Worrying too much about different things: 3 = Nearly every day Trouble relaxin = Nearly every day Being so restless that it is hard to sit still: 2 = More than half the days Becoming easily annoyed or irritable: 1 = Several days Feeling afraid as if something awful might happen: 3 = Nearly every day Total RAJIV-7 score (0-4 normal; 5-9 mild; 10-14 moderate; 15-21 severe): 17 Source: Developed by Drs. Bogdan Ann, Karyn Joe, Miko Thomas and colleagues, with an educational krystyna from [employer]. RAJIV-7 Assessment Billing RAJIV-7 Assessment Tool: RAJIV-7 Assessment 35405 Review of Systems Const Denies chills, Denies fever(s) and Denies headache(s) Eyes Denies blurry vision ENT Denies headache(s), Denies nasal discharge, Denies nasal obstruction, Denies odynophagia and Denies sinus pain Card Denies chest pain at rest and Denies chest pain with activity Resp Denies cough and Denies hemoptysis GI Denies diarrhea, Denies odynophagia and Denies hematemesis Reports as per HPI Musc Denies abnormal gait Skin/Breast Reports as per HPI Neuro Denies Neuro-related abnormal movements, Denies Abnormal speech present, Denies abnormal gait, Denies headache(s) and Denies Sensory deficit (Neuro) Psych Denies mood swings and Denies paranoia Endo Reports as per HPI Elpidio/Lymph Reports as per HPI Aller/Immun Reports as per HPI Physical exam (Primary Care) Vital Signs: Last Vital Signs Pulse 97 10/01/22 14:11 BP 142/82 H 10/01/22 14:11 Pulse Ox 96 10/01/22 14:11 Oxygen Delivery Method Room Air 10/01/22 14:11 BMI result Body Mass Index 61.3 Tobacco/Smoking Status: Tobacco use Status Tobacco use date assessed 10/01/22 10/01/22 14:13 Patient Tobacco Use Status Never used Tobacco 10/01/22 14:13 e-Cigarette/Vaping Use Never Used 10/01/22 14:13 PHQ-9: PHQ-9 Score PHQ-9: Total score 10/01/22 14:26 Depression Screening Interpretation: Positive Thrive Assessment: Date of Thrive Assessment Date Thrive assessed 10/01/22 10/01/22 14:26 Const General: cooperative, comfortable and no acute distress Orientation/consciousness: patient oriented x3 HENMT Head: Yes normocephalic and Yes atraumatic Eyes General: appearance normal, both eyes and all related structures Pupils: Equal, round and reactive pupils present EOM: EOMs intact bilaterally Neck Neck: Yes supple and No lymphadenopathy Thyroid: Thyroid normal Lymphatic: no lymphadenopathy noted Resp Effort & Inspection: normal respiratory effort and able to speak in complete sentences Auscultation: clear to auscultation bilaterally Cardio Heart sounds: S1 normal heart sound present and S2 normal heart sound present GI Palpation (GI): Soft to palpation and nontender Auscultation: normal bowel sounds General: Yes no CVA tenderness Back/Spine/Pelvis Back: no CVA tenderness Skin General skin exam: elasticity normal and turgor normal Neuro General: patient oriented x3 and gait normal Cranial nerves: Yes Equal, round and reactive pupils present Speech: No Abnormal speech present Sensory Exam: No Sensory deficit (Neuro) Coordination: tandem gait normal and Romberg test negative Extrem General: Yes normal exam except as noted and No edema Assessment and Plan Assessment & Plan (1) Encounter for general adult medical examination with abnormal findings: Code(s): Z00.01 - Encounter for general adult medical examination with abnormal findings (2) Major depressive disorder, severe: Code(s): F32.2 - Major depressive disorder, single episode, severe without psychotic features (3) Anxiety, generalized: Code(s): F41.1 - Generalized anxiety disorder (4) Non-insulin dependent diabetes mellitus: (5) Morbid obesity: Code(s): E66.01 - Morbid (severe) obesity due to excess calories (6) Asthma, moderate: Code(s): J45.909 - Unspecified asthma, uncomplicated (7) Hypertension, essential: Code(s): I10 - Essential (primary) hypertension (8) Headache syndrome: Code(s): G44.89 - Other headache syndrome (9) Fibromyalgia: Code(s): M79.7 - Fibromyalgia Plan Physical exam appointment Has appointment with OBGYN coming up Patient is diabetic her hemoglobin A1c is 6.8 today She is taking 2.5 mg of glipizide and tells me that she frequently feels her sugar is low I am stopping the medication, she is to control diet and will continue to monitor the hemoglobin A1c. Medication list reviewed Patient had labs done recently reviewed Having difficulty losing weight Blood pressure is running high I am increasing her losartan to 50 mg continue hydrochlorothiazide as well. Patient is anemic she is seeing hematology for management Continued to have heavy menstrual cycle Asthma is stable with Advair she is taking Wellbutrin 300 mg and duloxetine 60 mg , and lorazepam 0.5 once a day as needed Patient is also on gabapentin 300 mg at night for fibromyalgia Still has not seen psychiatrist old psychiatric medications are coming from PCP office Patient need to return every 3 months for follow-up appointment due to number of medications she is taking. Medications: Changed From losartan 25 mg PO DAILY 30 days 90 tabs 0RF To losartan 50 mg PO DAILY 90 days 90 tabs 0RF Discontinued glipizide Discontinued Reason: Doctor's Order 2.5 mg (1/2 x 5 mg) PO DAILY 90 days 45 tabs 0RF E11.9 - Type 2 diabetes mellitus without complications Coding Level of Care Code Est Pt Prev Care 18-39y(47300) Diagnoses Encounter for general adult medical examination with abnormal findings Z00.01 Major depressive disorder, severe F32.2 Anxiety, generalized F41.1 Non-insulin dependent diabetes mellitus Morbid obesity E66.01 Asthma, moderate J45.909 Hypertension, essential I10 Headache syndrome G44.89 Fibromyalgia M79.7 Additional Codes RAJIV-7 Assessment Billing - RAJIV-7 Assessment Tool: RAJIV-7 Assessment [id number] ([id number])
[2022-10-01 14:11] VITALS: BP 142/82; PULSE 97; O2SAT 96; BMI 61.3
== END 2022-10-01 14:39 | disposition home or self-care (01) ==
PROVIDERS: PCP Internal Medicine; Visit Provider Internal Medicine
DX: Z00.01 Encounter for general adult medical examination with abnormal findings (principal); F32.2 Major depressive disorder, single episode, severe without psychotic features; E66.01 Morbid (severe) obesity due to excess calories; Z68.44 Body mass index [BMI] 60.0-69.9, adult; F41.1 Generalized anxiety disorder; J45.909 Unspecified asthma, uncomplicated; I10 Essential (primary) hypertension; G44.89 Other headache syndrome; M79.7 Fibromyalgia
CPT/HCPCS: 99395

== ENCOUNTER 2022-11-19 14:46 | Outpatient (AMB) | payer OTHER, SELFPAY ==
--- NOTE | 2022-11-19 14:57 | MHC.OFFVIS ---
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 Scribed for CANDIDA Voss by Lucia Powell neuropsychology medical consultant, on 11/19/2022 at 3:18 pm EST. 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 She admits to eating healthy and tries to stay active with exercise. Currently not sexually active. Reports HMB 3/6 days with pelvic pain. Denies being on blood thinners. Reports one episode of skipping menses in January. Reports painful intimacy and experiences pain when inserting a tampon. Denies vaginal itching and irritation. STD screening offered; she accepts. STD blood work offered; she declines. Denies family hx of breast, colon and ovarian cancer. Last pap smear 03/05/11. Never been diagnosed with PCOS. [facility] Medical History H/O bipolar disorder Suicidal thoughts Irritable bowel syndrome Fibromyalgia Diabetes Insomnia Leukocytosis Thrombocytosis Acute anxiety Depression Anemia HTN (hypertension) Asthma Surgical History History of esophagogastroduodenoscopy (EGD) History of laparoscopic cholecystectomy Family History Sister Brain tumor Maternal Uncle Throat cancer Paternal Grandmother Leukemia Mother Fibromyalgia Maternal Grandmother Cancer of kidney Brother No problems noted. Brother No problems noted. Other Mental health disorder Substance use disorder Social History Household Members: Family Housing: Apartment Are you a primary rn coronary care unit to a significant other at home: No Do you presently have visiting nurse or other home services: No Alcohol intake: never Patient Tobacco Use Status: Never used Tobacco e-Cigarette/Vaping Use: Never Used Current occupational status: unemployed Sexual orientation: Straight/Heterosexual Gender identity: Female Cognitive needs: No Hearing needs: No Vision needs: No Female Reproductive History Menstrual Duration of menses: 6-7 days Date of last menstrual period: 11/05/22 control method: none Total pregnancies: 0 Date of last pap smear: 03/05/11 (neg) Physical Exam Vital Signs: Last Vital Signs BP 136/80 11/19/22 14:58 BMI result Body Mass Index 61.6 Const General: cooperative, healthy appearing, no acute distress, well developed and alert Orientation/consciousness: patient oriented x3 HEENT Head: Yes normal to inspection Eyes General: appearance normal, both eyes and all related structures Neck Neck: Yes normal visual inspection Thyroid: Thyroid normal Chest Chest palpation & inspection: normal inspection of the chest Breast/axilla inspection: normal inspection of the breasts (no puckering, dimpling, peau de orange, retraction, discharge, masses) Breast/axilla palpation: normal palpation of the breasts Resp Effort & Inspection: normal respiratory effort GI Other: limited due to body habitus Inspection: Yes normal to inspection and Yes obesity Palpation (GI): Soft to palpation (to palpation) Rectal Exam - Female: deferred Other: limited due to body habitus General: Yes bladder normal to inspection External Female Exam: normal external appearance and normal appearance of the urethra Speculum Exam - Vagina: normal appearance of the vagina, normal palpation and normal vaginal discharge Speculum Exam - Cervix: normal appearance of the cervix and normal palpation Bimanual exam- vagina & uterus: normal palpation and normal palpation Bimanual Exam- Adnexa, other: normal adnexae and no masses Skin General skin exam: no rashes or lesions noted Neuro General: patient oriented x3 Cognition (Neuro): normal cognition Extrem General: Yes normal to inspection Psych Attitude: cooperative Thought process: Normal thought process present Assessment & Plan Assessment & Plan (1) Encounter for well woman exam: Code(s): Z01.419 - Encounter for gynecological examination (general) (routine) without abnormal findings Plan: Discussed: Current recommendations for pap smears per ASCCP guidelines. Breast awareness and periodic self breast exams. Maintaining a healthy lifestyle including a well balanced diet and routine exercise. All of her questions and concerns were addressed to the best of my ability. RTO in one year for AG. (2) Heavy menstrual bleeding: Code(s): N92.0 - Excessive and frequent menstruation with regular cycle Plan: US and labs ordered. Follow up in person US results. (3) Potential exposure to STD: Code(s): Z20.2 - Contact with and (suspected) exposure to infections with a predominantly sexual mode of transmission Plan: GC/CT panel done today. Await results and treat accordingly. Orders: Orders Bacterial Vaginosis Panel Today N92.0 - Excessive and frequent menstruation with regular cycle Thyroid Stimulating Hormone Today N92.1 - Excessive and frequent menstruation with irregular cycle US pelvic and transvaginal Today N92.0 - Excessive and frequent menstruation with regular cycle CT NG by PCR Today N92.0 - Excessive and frequent menstruation with regular cycle Pap Smear Today Z01.419 - Encounter for gynecological examination (general) (routine) without abnormal findings Coding Level of Care Code New Pt Prev Care 18-39yr([id number] Diagnoses Encounter for well woman exam Z01.419 Heavy menstrual bleeding N92.0 Potential exposure to STD Z20.2
[2022-11-19 14:58] VITALS: BP 136/80; BMI 61.6
== END 2022-11-19 15:48 | disposition home or self-care (01) ==
PROVIDERS: PCP Internal Medicine; Visit Provider Advanced Practice Midwife
DX: Z01.419 Encounter for gynecological examination (general) (routine) without abnormal findings (principal); N92.0 Excessive and frequent menstruation with regular cycle; Z20.2 Contact with and (suspected) exposure to infections with a predominantly sexual mode of transmission
CPT/HCPCS: 99385

== ENCOUNTER 2022-11-19 14:46 | Outpatient (REF) | payer OTHER, SELFPAY ==
[2022-11-19 18:44] LABS: Thyroid Stimulating Hormone 4.18 uIU/mL (0.32-4.0)
[2022-11-20 05:27] LABS: CT PCR NOT DETECTED (Not Detect.); NG PCR NOT DETECTED (Not Detect.)
[2022-11-20 11:01] LABS: BV Int Neg Control Negative (Negative); BV Int Pos Control Positive (Positive)
== END 2022-11-19 14:47 | disposition home or self-care (01) ==
LOC: HO.LAB 14:46
PROVIDERS: PCP Internal Medicine; Visit Provider Advanced Practice Midwife
DX: Z01.419 Encounter for gynecological examination (general) (routine) without abnormal findings (principal); N92.0 Excessive and frequent menstruation with regular cycle; Z20.2 Contact with and (suspected) exposure to infections with a predominantly sexual mode of transmission
CPT/HCPCS: 0353U; 84443; 87480; 87510; 87660; 99385

== ENCOUNTER 2022-11-19 15:41 | Outpatient (REF) | payer OTHER, SELFPAY ==
[2022-11-22 03:58] LABS: HPV mRNA E6/E7 rflx Not Detected (Not Detected)
== END 2022-11-19 15:42 | disposition home or self-care (01) ==
LOC: HO.LNP 15:41
PROVIDERS: Visit Provider Advanced Practice Midwife
DX: Z01.419 Encounter for gynecological examination (general) (routine) without abnormal findings (principal); Z11.51 Encounter for screening for human papillomavirus (HPV)
CPT/HCPCS: 87624; 88142

== ENCOUNTER 2022-12-17 16:21 | Outpatient (REF) | payer OTHER, SELFPAY ==
--- NOTE | ~2022-12-17 | US_ITS ---
EXAMINATION: US PELVIS CLINICAL INFORMATION: Excessive and frequent menstruation with regular cycle. COMPARISON: Pelvic ultrasound 08/30/2013. TECHNIQUE: Ultrasound of the pelvis is performed using both transabdominal and transvaginal transducers along with color Doppler. Transvaginal imaging is performed due to inadequate visualization transabdominally. FINDINGS: Uterus: The uterus is anteverted and measures 11.5 x 4.2 x 5.7 cm. The double wall endometrial thickness is 14 mm. The uterus is smooth in contour and has normal myometrial echogenicity. No visible fibroid. Adnexa: Right ovary measures 5.1 x 3.4 x 3.6 cm, volume 33 mL. cm. There are follicles, normal findings measuring less than 3 cm in the right ovary. No follow-up imaging is recommended. The left ovary is not seen. No free fluid in the pelvis. US/US pelvic and transvaginal IMPRESSION: The uterus appears normal. The endometrial stripe appears normal.
[2022-12-17 17:00] LABS: MANUAL DIFF FLAG NO
[2022-12-17 17:50] LABS: Basophils Absolute Auto 0.1 X10*3/uL (0.0-0.2); Basophils Percent Auto 0.4 % (0-2); Eosinophils Absolute Auto 0.2 X10*3/uL (0.0-0.4); Eosinophils Percent Auto 1.3 % (0-4); Hematocrit 34.1 % (37.0-47.0); Hemoglobin 10.5 g/dl (12.0-16.0); Imm Gran Abs Auto 0.08 X10*3/uL (0.00-0.03); Imm Gran Pct Auto 0.6 % (0.0-0.4); Lymphocytes Percent Auto 24.1 % (20-40); Mean Corpuscular HGB Conc 30.8 g/dl (31.0-35.0); Mean Corpuscular Hemoglobin 23.8 pg (27.0-33.0); Mean Corpuscular Volume 77.3 fL (80.0-98.0); Mean Platelet Volume 8.3 fL (9.4-12.3); Monocytes Absolute Auto 0.8 X10*3/uL (0.1-1.2); Monocytes Percent Auto 6.5 % (2-11); Neutrophils Absolute Auto 8.5 x10*3/uL (2.0-8.3); Neutrophils Percent Auto 67.1 % (45-73); Platelet Count 578 X10*3/uL (160-400); Red Blood Count 4.41 X10*6/uL (4.20-5.50); Red Cell Distribution Width 15.7 % (11.0-16.0); White Blood Count 12.6 X10*3/uL (4.8-10.8)
[2022-12-17 18:06] LABS: Urine Pregnancy NEGATIVE (NEGATIVE)
[2022-12-17 18:07] LABS: UPreg QC Valid YES
[2022-12-17 18:26] LABS: Alanine Aminotransferase 10 U/L (0-31); Albumin Level 4.2 g/dL (3.5-5.0); Alkaline Phosphatase 71 U/L (39-117); Anion Gap 14 (12-20); Aspartate Amino Transferase 10 U/L (5-31); Bilirubin Total 0.4 mg/dL (0.0-1.0); Blood Urea Nitrogen 11 mg/dL (9-16); Calcium 9.4 mg/dL (8.4-10.2); Carbon Dioxide 24 mmol/L (22-29); Chloride 101 mmol/L (96-108); Cholesterol 186 mg/dL (<200); Estimated Glomerular Filt Rate > 60; Glucose Random 116 mg/dL (60-115); HDL Cholesterol 40 mg/dL (>40); LDL Cholesterol Calculated 120 mg/dL (<100); Potassium 4.1 mmol/L (3.3-5.1); Sodium 135 mmol/L (135-145); Total Protein 8.1 g/dL (6.5-8.0); Triglycerides 134 mg/dL (<150)
[2022-12-17 18:26] LABS: Amphetamine Screen Urine Not Detected (Not Detect); Barbiturates, Urine Not Detected (Not Detect); Benzodiazepines Screen Urine Not Detected (Not Detect); Cannabinoid Screen Urine Not Detected (Not Detect); Cocaine Screen Urine Not Detected (Not Detect); Fentanyl, urine Not Detected (Not Detect); Opiate Screen Urine Not Detected (Not Detect); Phencyclidine Screen Urine Not Detected (Not Detect)
[2022-12-17 18:44] LABS: Thyroid Stimulating Hormone 3.32 uIU/mL (0.32-4.0)
[2022-12-18 07:06] LABS: Estimated Average Glucose 148 mg/dL; Hemoglobin A1c % 6.8 % (<6.0)
== END 2022-12-17 16:22 | disposition home or self-care (01) ==
LOC: HO.US 16:21
PROVIDERS: Absent Provider Nurse Practitioner Psychiatric/Mental Health; PCP Internal Medicine; Visit Provider Advanced Practice Midwife
DX: N92.0 Excessive and frequent menstruation with regular cycle (principal); Z79.899 Other long term (current) drug therapy
CPT/HCPCS: 76830; 76856; 80053; 80061; 80307; 81025; 83036; 84443; 85025

== ENCOUNTER 2022-12-31 15:19 | Outpatient (AMB) | payer OTHER, SELFPAY ==
--- NOTE | 2022-12-31 15:20 | A.OFFPC_ITS ---
Vital Signs 12/31/22 15:23 Height 5 ft 5 in Weight 371 lb 6 oz BMI 61.8 BP 132/82 Blood Pressure Location Lt radial Position Sitting Pulse 88 Pulse Source Pulse Oximeter Pulse Oximetry (%) 97 Oxygen Delivery Method Room Air Intake Visit Reasons: follow up per [place] Allergies amoxicillin [Amoxicillin] Allergy (Unknown, Verified 12/31/22 15:23) rash walnut Allergy (Unknown, Verified 12/31/22 15:23) throat itching Medication List - Last Reconciled 12/31/22 by Devyn Power MD albuterol sulfate 90 mcg/actuation (Ventolin HFA) 1 inh inhalation QID PRN 30 days amitriptyline 25 mg PO BEDTIME aripiprazole 5 mg PO DAILY blood sugar diagnostic (FreeStyle Lite Strips) Check blood sugar daily or as needed for symptomatic low or high glucose blood-glucose meter (FreeStyle Lite Meter kit) Check blood sugar daily or as nee ded for symptomatic low or high glucose bupropion HCl 300 mg PO QAM 90 days duloxetine (Cymbalta) 60 mg PO DAILY 90 days fluticasone propion-salmeterol 100-50 mcg/dose (Advair Diskus) 1 inh inhalation BID 30 days gabapentin 300 mg PO BEDTIME hydrochlorothiazide 25 mg PO DAILY lancets Check blood sugar daily or as needed for symptomatic low or high glucose lorazepam 0.5 mg PO DAILY PRN 30 days losartan 50 mg PO DAILY 90 days Tobacco use date assessed: 12/31/22 Dental Screening Dental Screen Date: 12/31/22 Did you have a dental visit in the last 12 months?: Yes Did you have a dental problem in the last 6 months where you did not have access to dental care?: No Was dental information given to patient?: Patient has dentist HPI follow up per [place] HPI Details Patient is 32 year female came in today for regular follow-up appointment Patient is diabetic her hemoglobin A1c was 6.8 in October she is taking no maria elena betic medications Patient is morbidly obese, I am starting her on semaglutide injections weekly Medication list reviewed Hypertension: Blood pressure is 132/82 losartan to 50 mg continue hydroch lorothiazide as well. Patient is anemic she is seeing hematology for management Continued to have heavy menstrual cycle Asthma is stable with Advair she is taking Wellbutrin 300 mg and duloxetine 60 mg , and lorazepam 0.5 once a day as needed she is seeing a therapist and psych med prescriber now Patient is also on gabapentin 300 mg at night for fibromyalgia patient is seeing a sr solutions consultant [facility] She needed of paperwork filled for financial assistance, which I have. She has a follow-up appointment in March [facility] Medical History H/O bipolar disorder Suicidal thoughts Irritable bowel syndrome Fibromyalgia Diabetes Insomnia Leukocytosis Thrombocytosis Acute anxiety Depression Anemia HTN (hypertension) Asthma Surgical History History of esophagogastroduodenoscopy (EGD) History of laparoscopic cholecystectomy Family History Sister Brain tumor Maternal Uncle Throat cancer Paternal Grandmother Leukemia Mother Fibromyalgia Maternal Grandmother Cancer of kidney Brother No problems noted. Brother No problems noted. Other Mental health disorder Substance use disorder Social History Household Members: Family Housing: Apartment Are you a primary wound care center consultant to a significant other at home: No Do you presently have visiting nurse or other home services: No Alcohol intake: never Patient Tobacco Use Status: Never used Tobacco e-Cigarette/Vaping Use: Never Used Current occupational status: unemployed Sexual orientation: Straight/Heterosexual Gender identity: Female Cognitive needs: No Hearing needs: No Vision needs: No Questionnaire PHQ-9 Over the last 2 weeks, how often have you been bothered by any of the following problems? 1. Little interest or pleasure in doing things: nearly every day 2. Feeling down, depressed, or hopeless: more than half the days 3. Trouble falling or staying asleep, or sleeping too much: more than half the days 4. Feeling tired or having little energy: nearly every day 5. Poor appetite or overeating: more than half the days 6. Feeling bad about yourself - or that you are a failure or have let yourself or your family down: nearly every day 7. Trouble concentrating on things, such as reading the newspaper or watching television: more than half the days 8. Moving or speaking so slowly that other people could have noticed. Or the opposite - being so fidgety or restless that you have been moving around a lot more than usual: several days 9. Thoughts that you would be better off or of hurting yourself in some way: more than half the days Total score: 20 Depression Screening Interpretation: Positive Depression Screening Follow-up: Existing condition and In treatment Depression Screening Done: Yes 51994 - PHQ-9 Billing: Yes Source: Developed by Drs. Bogdan Ann, Miko Guan and colleagues, with an educational krystyna from [employer]. Thrive Questionnaire Date Thrive assessed: 10/01/22 RAJIV-7 AMB Questionnaire RAJIV-7 Date RAJIV - 7 assessed: 10/01/22 Source: Developed by Drs. Bogdan Ann, Karyn Joe, Miko Thomas and colleagues, with an educational krystyna from [employer]. Review of Systems Const Denies chills and Denies fever(s) ENT Denies epistaxis and Denies nasal discharge Card Denies chest pain Resp Denies chest congestion, Denies cough and Denies hemoptysis GI Denies diarrhea and Denies nausea Skin/Breast Denies rash Neuro Reports no additional complaints Psych Reports no additional complaints Endo Reports no additional complaints Physical exam (Primary Care) Vital Signs: Last Vital Signs Pulse 88 12/31/22 15:23 BP 132/82 12/31/22 15:23 Pulse Ox 97 12/31/22 15:23 Oxygen Delivery Method Room Air 12/31/22 15:23 BMI result Body Mass Index 61.8 Tobacco/Smoking Status: Tobacco use Status Tobacco use date assessed 12/31/22 12/31/22 15:24 Patient Tobacco Use Status Never used Tobacco 12/31/22 15:23 e-Cigarette/Vaping Use Never Used 12/31/22 15:23 PHQ-9: PHQ-9 Score PHQ-9: Total score 20 12/31/22 15:57 Depression Screening Interpretation: Positive Depression Screening Follow-up: E xisting condition and In treatment Thrive Assessment: Date of Thrive Assessment Date Thrive assessed 10/01/22 12/31/22 15:23 Const General: cooperative, comfortable and no acute distress Orientation/consciousness: patient oriented x3 HENMT Head: Yes normocephalic Eyes General: appearance normal, both eyes and all related structures Neck Neck: Yes supple Resp Effort & Inspection: normal respiratory effort, no cough and no stridor Cardio Rhythm: regular rhythm Heart sounds: S1 normal heart sound present and S2 normal heart sound present Skin General skin exam: turgor normal Neuro General: patient oriented x3, tone normal and moves all extremities Extrem Right lower extremity: no edema Left lower extremity: no edema Assessment and Plan Assessment & Plan (1) Major depressive disorder, severe: Code(s): F32.2 - Major depressive disorder, single episode, severe without psychotic features (2) Morbid obesity: Code(s): E66.01 - Morbid (severe) obesity due to excess calories (3) Bipolar 1 disorder: Code(s): F31.9 - Bipolar disorder, unspecified (4) Anxiety, generalized: Code(s): F41.1 - Generalized anxiety disorder (5) Non-insulin dependent diabetes mellitus: (6) Asthma, moderate: Code(s): J45.909 - Unspecified asthma, uncomplicated Qualifiers: Asthma persistence: persistent Asthma complication type: uncomplicated Qualified Code(s): J45.40 - Moderate persistent asthma, uncomplicated (7) Hypertension, essential: Code(s): I10 - Essential (primary) hypertension (8) Headache syndrome: Code(s): G44.89 - Other headache syndrome (9) Fibromyalgia: Code(s): M79.7 - Fibromyalgia Plan Patient is 32 year female came in today for regular follow-up appointment Patient is diabetic her hemoglobin A1c was 6.8 in October she is taking no diabetic medications Patient is morbidly obese, I am starting her on semaglutide injections weekly Medication list reviewed Hypertension: Blood pressure is 132/82 losartan to 50 mg continue hydrochlorothiazide as well. Patient is anemic she is seeing hematology for management Continued to have heavy menstrual cycle Asthma is stable with Advair she is taking Wellbutrin 300 mg and duloxetine 60 mg , and lorazepam 0.5 once a day as needed she is seeing a therapist and psych med prescriber now She was started on Abilify due to diagnosis of bipolar Patient is also on gabapentin 300 mg at night for fibromyalgia patient is seeing a sr solutions consultant [facility] She needed of paperwork filled for financial assistance, which I have. She has a follow-up appointment in March Medications: New semaglutide for 4 weeks 0.25 mg (0.368 mL) subcut QWEEK 2 mL 0RF 30 days Refilled losartan 50 mg PO DAILY 90 tabs 0RF 90 days hydrochlorothiazide 25 mg PO DAILY 90 tabs 2RF I10 - Essential (primary) hypertension Coding Level of Care Code Est Pt Level 4 (56657) Diagnoses Major depressive disorder, severe F32.2 Morbid obesity E66.01 Bipolar 1 disorder F31.9 Anxiety, generalized F41.1 Non-insulin dependent diabetes mellitus Moderate persistent asthma without complication J45.40 Asthma persistence: persistent Asthma complication type: uncomplicated Hypertension, essential I10 Headache syndrome G44.89 Fibromyalgia M79.7
[2022-12-31 15:23] VITALS: BP 132/82; PULSE 88; O2SAT 97; BMI 61.8
== END 2022-12-31 16:07 | disposition home or self-care (01) ==
PROVIDERS: PCP Internal Medicine; Visit Provider Internal Medicine
DX: J45.40 Moderate persistent asthma, uncomplicated (principal); E66.01 Morbid (severe) obesity due to excess calories; F31.9 Bipolar disorder, unspecified; Z68.44 Body mass index [BMI] 60.0-69.9, adult; F41.1 Generalized anxiety disorder; I10 Essential (primary) hypertension; G44.89 Other headache syndrome; M79.7 Fibromyalgia
CPT/HCPCS: 99214

== ENCOUNTER 2023-03-28 11:06 | Outpatient (AMB) | payer OTHER, SELFPAY ==
--- NOTE | 2023-03-28 11:09 | MHC.PC.OV ---
Vital Signs 03/28/23 11:10 Height 5 ft 5 in Weight 364 lb BMI 60.6 BP 138/80 Blood Pressure Location Rt radial Position Sitting Pulse 87 Pulse Source Pulse Oximeter Pulse Oximetry (%) 100 Oxygen Delivery Method Room Air Intake Visit Reasons: 6m f/u Allergies amoxicillin [Amoxicillin] Allergy (Unknown, Verified 03/28/23 11:11) rash walnut Allergy (Unknown, Verified 03/28/23 11:11) throat itching Medication List - Last Reconciled 03/28/23 by Devyn Power MD albuterol sulfate 90 mcg/actuation (Ventolin HFA) 1 inh inhalation QID PRN 30 days amitriptyline 25 mg PO BEDTIME aripiprazole 5 mg PO DAILY blood sugar diagnostic (FreeStyle Lite Strips) Check blood sugar daily or as needed for symptomatic low or high glucose blood-glucose meter (FreeStyle Lite Meter kit) Check blood sugar daily or as needed for symptomatic low or high glucose bupropion HCl 300 mg PO QAM 90 days duloxetine (Cymbalta) 60 mg PO DAILY 90 days fluticasone propion-salmeterol 100-50 mcg/dose (Advair Diskus) 1 inh inhalation BID 30 days gabapentin 300 mg PO BEDTIME hydrochlorothiazide 25 mg PO DAILY lancets Check blood sugar daily or as needed for symptomatic low or high glucose lorazepam 0.5 mg PO DAILY PRN 30 days losartan 50 mg PO DAILY 90 days Tobacco use date assessed: 03/28/23 Dental Screening Dental Screen Date: 03/28/23 Did you have a dental visit in the last 12 months?: Yes Did you have a dental problem in the last 6 months where you did not have access to dental care?: No Was dental information given to patient?: Patient has dentist HPI 6m f/u HPI Details Patient is 32 year female came in today for regular follow-up appointment Patient is diabetic her hemoglobin A1c was 6.8 in October she is taking no diabetic medications Patient is morbidly obese, she was prescribed Semaglutide injection but her insurance did not approve it We will try again, patient is morbidly obese with BMI of 60.6 she can benefit from the Semaglutide She is aware of side effects Her hemoglobin A1c is 6.9 today Medication list reviewed Headache management is through Neurology, patient is having headache every day She has not seen a neurologist in a while, I have encouraged her to call in book the follow-up appointment Hypertension: Blood pressure stable with losartan to 50 mg and hydrochlorothiazide patient is tolerating medication no side effects Patient is anemic she is seeing hematology for management Continued to have heavy menstrual cycle Asthma is stable with Advair she is taking Wellbutrin 300 mg and duloxetine 60 mg , and lorazepam 0.5 once a day as needed she is seeing a therapist and psych med prescriber now She was started on Abilify due to diagnosis of bipolar , continued to feel depressed anxious Patient is also on gabapentin 300 mg at night for fibromyalgia patient is seeing a utility person [facility] Next follow-up appointment is June 24 [facility] Medical History H/O bipolar disorder Suicidal thoughts Irritable bowel syndrome Fibromyalgia Diabetes Insomnia Leukocytosis Thrombocytosis Acute anxiety Depression Anemia HTN (hypertension) Asthma Surgical History History of esophagogastroduodenoscopy (EGD) History of laparoscopic cholecystectomy Family History Sister Brain tumor Maternal Uncle Throat cancer Paternal Grandmother Leukemia Mother Fibromyalgia Maternal Grandmother Cancer of kidney Brother No problems noted. Brother No problems noted. Other Mental health disorder Substance use disorder Social History Household Members: Family Housing: Apartment Are you a primary care management specialist to a significant other at home: No Do you presently have visiting nurse or other home services: No Alcohol intake: never Patient Tobacco Use Status: Never used Tobacco e-Cigarette/Vaping Use: Never Used Current occupational status: unemployed Sexual orientation: Straight/Heterosexual Gender identity: Female Cognitive needs: No Hearing needs: No Vision needs: No Questionnaire PHQ-9 Over the last 2 weeks, how often have you been bothered by any of the following problems? 1. Little interest or pleasure in doing things: more than half the days 2. Feeling down, depressed, or hopeless: nearly every day 3. Trouble falling or staying asleep, or sleeping too much: more than half the days 4. Feeling tired or having little energy: nearly every day 5. Poor appetite or overeating: several days 6. Feeling bad about yourself - or that you are a failure or have let yourself or your family down: nearly every day 7. Trouble concentrating on things, such as reading the newspaper or watching television: nearly every day 8. Moving or speaking so slowly that other people could have noticed. Or the opposite - being so fidgety or restless that you have been moving around a lot more than usual: not at all 9. Thoughts that you would be better off or of hurting yourself in some way: more than half the days Total score: 19 Depression Screening Interpretation: Positive Depression Screening Follow-up: Existing condition and In treatment Depression Screening Done: Yes 44452 - PHQ-9 Billing: Yes Source: Developed by Drs. Bogdan Ann, Karyn Joe, Miko Thomas and colleagues, with an educational krystyna from [employer]. Thrive Questionnaire Date Thrive assessed: 10/01/22 I am a: Patient What is your living situation today?: I have a steady place to live Within the past 12 months, did the food you bought not last and you didn't have the money to get more?: Sometimes True Within the past 12 months, did you worry whether your food would run out before you got money to buy more?: Often true Do you have trouble paying for medicines?: No Do you have trouble getting transportation to medical appointments?: No Do you have trouble paying your heating and electricity bill?: No Do you have trouble taking care of your child, family member or friend?: Yes Do you have trouble with day-to-day activities such as bathing, preparing meals, shopping, managing finances, etc.?: Yes Are you currently unemployed and looking for a job?: I choose not to answer this question Are you interested in more education?: Yes Please select the resources that you would like help with: None Currently or been in a relationship where the following occur: no concerns reported THRIVE Score: 2 AUDIT C Alcohol Use Questionnaire (AUDIT-C) 1. How often do you have a drink containing alcohol?: Monthly or less 2. How many drinks containing alcohol do you have on a typical day when you are drinking?: 1 or 2 3. How often do you have six or more drinks on one occasion?: Never Total Score: 1 Score Reviewed/Action Taken: No RAJIV-7 AMB Questionnaire RAJIV-7 Date RAJIV - 7 assessed: 03/28/23 Feeling nervous, anxious, or on edge: 3 = Nearly every day Not being able to stop or control worryin = Nearly every day Worrying too much about different things: 3 = Nearly every day Trouble relaxin = Nearly every day Being so restless that it is hard to sit still: 3 = Nearly every day Becoming easily annoyed or irritable: 2 = More than half the days Feeling afraid as if something awful might happen: 3 = Nearly every day Total RAJIV-7 score (0-4 normal; 5-9 mild; 10-14 moderate; 15-21 severe): 20 Source: Developed by Drs. Bogdan Ann, Karyn Joe, Miko Thomas and colleagues, with an educational krystyna from [employer]. RAJIV-7 Assessment Billing RAJIV-7 Assessment Tool: RAJIV-7 Assessment 82431 Review of Systems Const Denies chills and Denies fever(s) ENT Denies epistaxis and Denies nasal discharge Card Denies chest pain Resp Denies chest congestion, Denies cough and Denies hemoptysis GI Denies diarrhea and Denies nausea Skin/Breast Denies rash Neuro Reports no additional complaints Psych Reports no additional complaints Endo Reports no additional complaints Physical exam (Primary Care) Vital Signs: Last Vital Signs Pulse 87 03/28/23 11:10 BP 138/80 03/28/23 11:10 Pulse Ox 100 03/28/23 11:10 Oxygen Delivery Method Room Air 03/28/23 11:10 BMI result Body Mass Index 60.6 Tobacco/Smoking Status: Tobacco use Status Tobacco use date assessed 03/28/23 03/28/23 11:15 Patient Tobacco Use Status Never used Tobacco 03/28/23 11:15 e-Cigarette/Vaping Use Never Used 03/28/23 11:15 PHQ-9: PHQ-9 Score PHQ-9: Total score 19 03/28/23 11:21 Depression Screening Interpretation: Positive Depression Screening Follow-up: Existing condition and In treatment Thrive Assessment: Date of Thrive Assessment Date Thrive assessed 10/01/22 03/28/23 11:15 Currently or been in a relationship where the following occur: no concerns reported Const General: cooperative, comfortable and no acute distress Orientation/consciousness: patient oriented x3 HENMT Head: Yes normocephalic Eyes General: appearance normal, both eyes and all related structures Neck Neck: Yes supple Resp Effort & Inspection: normal respiratory effort, no cough and no stridor Cardio Rhythm: regular rhythm Heart sounds: S1 normal heart sound present and S2 normal heart sound present Skin General skin exam: turgor normal Neuro General: patient oriented x3, tone normal and moves all extremities Extrem Right lower extremity: no edema Left lower extremity: no edema Results AMB Hemoglobin A1c AMB Hemoglobin A1c 6.9 % Last Edit by Simi Fisher CMA on 03/28/23 11:30 Results Reviewed Results Reviewed: Laboratory Last Values Hgb A1c (Clinic) 6.9 % (4.0-6.0) H 03/28/23 11:21 Assessment and Plan Assessment & Plan (1) Non-insulin dependent diabetes mellitus: (2) Morbid obesity: Code(s): E66.01 - Morbid (severe) obesity due to excess calories (3) Hypertension, essential: Code(s): I10 - Essential (primary) hypertension (4) Asthma, moderate: Code(s): J45.909 - Unspecified asthma, uncomplicated Qualifiers: Asthma complication type: uncomplicated Asthma persistence: persistent Qualified Code(s): J45.40 - Moderate persistent asthma, uncomplicated (5) Major depressive disorder, severe: Code(s): F32.2 - Major depressive disorder, single episode, severe without psychotic features (6) Bipolar 1 disorder: Code(s): F31.9 - Bipolar disorder, unspecified (7) Anxiety, generalized: Code(s): F41.1 - Generalized anxiety disorder (8) Headache syndrome: Code(s): G44.89 - Other headache syndrome (9) Fibromyalgia: Code(s): M79.7 - Fibromyalgia (10) Iron deficiency anemia: Code(s): D50.9 - Iron deficiency anemia, unspecified Qualifiers: Iron deficiency anemia type: chronic blood loss Qualified Code(s): D50.0 - Iron deficiency anemia secondary to blood loss (chronic) Plan Patient is 32 year female came in today for regular follow-up appointment Patient is diabetic her hemoglobin A1c was 6.8 in October she is taking no diabetic medications Patient is morbidly obese, she was prescribed Semaglutide injection but her insurance did not approve it We will try again, patient is morbidly obese with BMI of 60.6 she can benefit from the Semaglutide She is aware of side effects Her hemoglobin A1c is 6.9 today Medication list reviewed Headache management is through Neurology, patient is having headache every day She has not seen a neurologist in a while, I have encouraged her to call in book the follow-up appointment Hypertension: Blood pressure stable with losartan to 50 mg and hydrochlorothiazide patient is tolerating medication no side effects Patient is anemic she is seeing hematology for management Continued to have heavy menstrual cycle Asthma is stable with Advair she is taking Wellbutrin 300 mg and duloxetine 60 mg , and lorazepam 0.5 once a day as needed she is seeing a therapist and psych med prescriber now She was started on Abilify due to diagnosis of bipolar , continued to feel depressed anxious Patient is also on gabapentin 300 mg at night for fibromyalgia patient is seeing a utility person [facility] Next follow-up appointment is June 24 Orders: Orders AMB Hemoglobin A1c Today E11.9 - Type 2 diabetes mellitus without complications Medications: Refilled semaglutide for 4 weeks 0.25 mg (0.368 mL) subcut QWEEK 2 mL 2RF 30 days E66.01 - Morbid (severe) obesity due to excess calories Coding Level of Care Code Est Pt Level 4 (26868) Diagnoses Non-insulin dependent diabetes mellitus Morbid obesity E66.01 Hypertension, essential I10 Moderate persistent asthma without complication J45.40 Asthma complication type: uncomplicated Asthma persistence: persistent Major depressive disorder, severe F32.2 Bipolar 1 disorder F31.9 Anxiety, generalized F41.1 Headache syndrome G44.89 Fibromyalgia M79.7 Iron deficiency anemia due to chronic blood loss D50.0 Iron deficiency anemia type: chronic blood loss Additional Codes RAJIV-7 Assessment Billing - RAJIV-7 Assessment Tool: RAJIV-7 Assessment 02147 ([id number])
[2023-03-28 11:10] VITALS: BP 138/80; PULSE 87; O2SAT 100; BMI 60.6
== END 2023-03-28 12:06 | disposition home or self-care (01) ==
PROVIDERS: PCP Internal Medicine; Visit Provider Internal Medicine
DX: E11.9 Type 2 diabetes mellitus without complications (principal); E66.01 Morbid (severe) obesity due to excess calories; F31.9 Bipolar disorder, unspecified; Z68.44 Body mass index [BMI] 60.0-69.9, adult; I10 Essential (primary) hypertension; J45.40 Moderate persistent asthma, uncomplicated; F41.1 Generalized anxiety disorder; G44.89 Other headache syndrome; M79.7 Fibromyalgia; D50.0 Iron deficiency anemia secondary to blood loss (chronic)
CPT/HCPCS: 83036; 96127; 99214

== ENCOUNTER 2023-04-03 12:46 | Outpatient (AMB) | payer OTHER, SELFPAY ==
--- NOTE | 2023-04-03 12:49 | MHC.OFFVIS ---
Intake Vital Signs 04/03/23 12:51 Height 5 ft 5 in Weight 364 lb BMI 60.6 BP 126/82 Intake Visit Reasons: Ultra sound follow up/45 min per BM Outside Physical Damage Appraiser: Outside Physical Damage Appraiser Present Allergies amoxicillin [Amoxicillin] Allergy (Unknown, Verified 04/03/23 12:49) rash walnut Allergy (Unknown, Verified 04/03/23 12:49) throat itching Is last menstrual period known: Yes Last menstrual period: 03/22/23 HPI HPI Comments History of Present Illness Details Patient is here today for a follow-up ultrasound due to history of heavy menstrual bleeding. She is currently getting iron infusions. She denies any pelvic pain or other concerns today. She did not treat for BV because she is asymptomatic. [facility] Medical History H/O bipolar disorder Suicidal thoughts Irritable bowel syndrome Fibromyalgia Diabetes Insomnia Leukocytosis Thrombocytosis Acute anxiety Depression Anemia HTN (hypertension) Asthma Surgical History History of esophagogastroduodenoscopy (EGD) History of laparoscopic cholecystectomy Family History Sister Brain tumor Maternal Uncle Throat cancer Paternal Grandmother Leukemia Mother Fibromyalgia Maternal Grandmother Cancer of kidney Brother No problems noted. Brother No problems noted. Other Mental health disorder Substance use disorder Social History Household Members: Family Housing: Apartment Are you a primary long term care administrator to a significant other at home: No Do you presently have visiting nurse or other home services: No Alcohol intake: never Patient Tobacco Use Status: Never used Tobacco e-Cigarette/Vaping Use: Never Used Current occupational status: unemployed Sexual orientation: Straight/Heterosexual Gender identity: Female Cognitive needs: No Hearing needs: No Vision needs: No Female Reproductive History Menstrual Date of last menstrual period: 03/22/23 Review of Systems Const All systems reviewed & are unremarkable except as noted in HPI and below Endo Reports no additional complaints Physical Exam Vital Signs: Last Vital Signs BP 126/82 04/03/23 12:51 BMI result Body Mass Index 60.6 Const General: cooperative, healthy appearing and no acute distress Psych Appearance: well kempt Attitude: cooperative Thought process: Normal thought process present Results Reviewed Results Reviewed: [address] [address] Ultrasound Report Signed Patient: Phoebe Chapa MR#: [id number] : 1990 Acct:[id number] Age/Sex: 32 / F ADM Date: 12/17/22 Loc: HO.US Attending Dr: Sena Caro CNM Ordering Physician: Sena Caro CNM Date of Service: 12/17/22 Procedure(s): US pelvic and transvaginal Accession Number(s): [id number] cc: Devyn Power MD; Sena Caro CNM~ EXAMINATION: US PELVIS CLINICAL INFORMATION: Excessive and frequent menstruation with regular cycle. COMPARISON: Pelvic ultrasound 08/30/2013. TECHNIQUE: Ultrasound of the pelvis is performed using both transabdominal and transvaginal transducers along with color Doppler. Transvaginal imaging is performed due to inadequate visualization transabdominally. FINDINGS: Uterus: The uterus is anteverted and measures 11.5 x 4.2 x 5.7 cm. The double wall endometrial thickness is 14 mm. The uterus is smooth in contour and has normal myometrial echogenicity. No visible fibroid. Adnexa: Right ovary measures 5.1 x 3.4 x 3.6 cm, volume 33 mL. cm. There are follicles, normal findings measuring less than 3 cm in the right ovary. No follow-up imaging is recommended. The left ovary is not seen. No free fluid in the pelvis. US/US pelvic and transvaginal IMPRESSION: The uterus appears normal. The endometrial stripe appears normal. Dictated By: Evan Muller MD Signed By: <Electronically signed by Evan Muller MD in OV> 12/18/22 1602 DD/ 1639 TD/TT: [employer]: JOSE MIGUEL Assessment & Plan Assessment & Plan (1) Heavy menstrual bleeding: Code(s): N92.0 - Excessive and frequent menstruation with regular cycle Qualifiers: Menorrhagia type: with regular cycle Qualified Code(s): N92.0 - Excessive and frequent menstruation with regular cycle Plan Discussed: Ultrasound findings which were normal. Workup for the heavy menstrual bleeding. That would include an endometrial biopsy. Discussed pre procedure planning to eat and drink fluids, and to take an [id number] medication to help with cramping during the procedure such as 2 tablets of regular strength Tylenol as directed or 3 tablets of Advil 200 mg each as directed take with food. Counseled about menstrual cycle control and use of hormones recommended Mirena IUD, she is interested. Mirena booklet given for her to review, if she is interested can have the Mirena inserted after the biopsy procedure same day. All of her questions and concerns were addressed to the best of my ability and shared decision making. She is agreeable to the plan of care. This note is constructed using voice recognition software. While every effort has been made to ensure accuracy, employment manager errors may have been included. Coding Level of Care Code Est Pt Level 3 (83184) Diagnoses Menorrhagia with regular cycle N92.0 Menorrhagia type: with regular cycle
[2023-04-03 12:51] VITALS: BP 126/82; BMI 60.6
== END 2023-04-03 13:07 | disposition home or self-care (01) ==
PROVIDERS: PCP Internal Medicine; Visit Provider Advanced Practice Midwife
DX: N92.0 Excessive and frequent menstruation with regular cycle (principal)
CPT/HCPCS: 99213

== ENCOUNTER → 2023-04-03 12:46 | Outpatient (BNVA) | payer OTHER, SELFPAY | PROVIDERS: PCP Internal Medicine; Visit Provider Advanced Practice Midwife | DX: N92.0 Excessive and frequent menstruation with regular cycle (principal) | CPT/HCPCS: 99212 ==

== ENCOUNTER 2023-04-11 13:52 | Outpatient (REF) | payer OTHER, SELFPAY | END 2023-04-11 13:53 | disposition home or self-care (01) | LOC: HO.MDS 13:52 | PROVIDERS: Visit Provider Internal Medicine Medical Oncology | DX: D50.9 Iron deficiency anemia, unspecified (principal) | CPT/HCPCS: 96365; J1756 ==

== ENCOUNTER 2023-04-18 13:27 | Outpatient (REF) | payer OTHER, SELFPAY | END 2023-04-18 13:28 | disposition home or self-care (01) | LOC: HO.MDS 13:27 | PROVIDERS: Visit Provider Internal Medicine Medical Oncology | DX: D50.9 Iron deficiency anemia, unspecified (principal) | CPT/HCPCS: 96365; J1756 ==

== ENCOUNTER 2023-04-25 13:29 | Outpatient (REF) | payer OTHER, SELFPAY ==
[2023-04-25 14:02] VITALS: BP 169/85; PULSE 81; RESP 18; TEMP 36.6
[2023-04-25] MEDS: Iron Sucrose Complex 200 MG in 0.9 % Sodium Chloride 100 ML 440 MG IV (14:16)
== END 2023-04-25 13:30 | disposition home or self-care (01) ==
LOC: HO.MDS 13:29
PROVIDERS: Visit Provider Internal Medicine Medical Oncology
DX: D50.9 Iron deficiency anemia, unspecified (principal)
CPT/HCPCS: 96365; J1756

== ENCOUNTER 2023-05-02 13:57 | Outpatient (REF) | payer OTHER, SELFPAY ==
[2023-05-02 14:00] VITALS: BP 173/96; PULSE 92; RESP 20; TEMP 36.1; O2SAT 97
[2023-05-02] MEDS: Iron Sucrose Complex 200 MG in 0.9 % Sodium Chloride 100 ML 440 MG IV (14:11)
--- NOTE | 2023-05-02 14:31 | PC.NURSE ---
phlebotomy at bedside for blood draw
[2023-05-02 14:35] LABS: MANUAL DIFF FLAG NO
[2023-05-02 14:37] LABS: Basophils Percent Auto 0.4 % (0-2); Eosinophils Absolute Auto 0.1 X10*3/uL (0.0-0.4); Hematocrit 34.8 % (37.0-47.0); Hemoglobin 10.5 g/dl (12.0-16.0); Imm Gran Abs Auto 0.07 X10*3/uL (0.00-0.03); Imm Gran Pct Auto 0.7 % (0.0-0.4); Lymphocytes Absolute Auto 3.1 X10*3/uL (1.2-4.9); Lymphocytes Percent Auto 30.4 % (20-40); Mean Corpuscular HGB Conc 30.2 g/dl (31.0-35.0); Mean Corpuscular Hemoglobin 23.4 pg (27.0-33.0); Mean Corpuscular Volume 77.7 fL (80.0-98.0); Mean Platelet Volume 8.3 fL (9.4-12.3); Monocytes Absolute Auto 0.6 X10*3/uL (0.1-1.2); Monocytes Percent Auto 6.1 % (2-11); Neutrophils Absolute Auto 6.2 x10*3/uL (2.0-8.3); Neutrophils Percent Auto 61.4 % (45-73); Platelet Count 429 X10*3/uL (160-400); Red Blood Count 4.48 X10*6/uL (4.20-5.50); Red Cell Distribution Width 20.4 % (11.0-16.0); White Blood Count 10.1 X10*3/uL (4.8-10.8)
[2023-05-02 15:10] LABS: Ferritin 77 ng/mL (10-122)
== END 2023-05-02 13:58 | disposition home or self-care (01) ==
LOC: HO.MDS 13:57
PROVIDERS: Visit Provider Internal Medicine Medical Oncology
DX: D50.9 Iron deficiency anemia, unspecified (principal)
CPT/HCPCS: 36415; 82728; 85025; 96365; J1756

== ENCOUNTER 2023-05-08 14:29 | Outpatient (REF) | payer OTHER, SELFPAY ==
[2023-05-08 14:30] VITALS: BP 146/90; PULSE 90; RESP 20; TEMP 36.3; O2SAT 98
[2023-05-08] MEDS: Iron Sucrose Complex 200 MG in 0.9 % Sodium Chloride 100 ML 440 MG IV (14:48)
== END 2023-05-08 14:30 | disposition home or self-care (01) ==
LOC: HO.MDS 14:29
PROVIDERS: Visit Provider Internal Medicine Medical Oncology
DX: D50.9 Iron deficiency anemia, unspecified (principal)
CPT/HCPCS: 96374; J1756

== ENCOUNTER 2023-05-16 14:28 | Outpatient (REF) | payer OTHER, SELFPAY ==
[2023-05-16 14:29] VITALS: BP 192/80; PULSE 95; RESP 20; TEMP 36; O2SAT 96
[2023-05-16] MEDS: Iron Sucrose Complex 200 MG in 0.9 % Sodium Chloride 100 ML 440 MG IV (14:38)
== END 2023-05-16 14:29 | disposition home or self-care (01) ==
LOC: HO.MDS 14:28
PROVIDERS: Visit Provider Internal Medicine Medical Oncology
DX: D50.9 Iron deficiency anemia, unspecified (principal)
CPT/HCPCS: 96374; J1756

== ENCOUNTER 2023-05-23 14:30 | Outpatient (REF) | payer OTHER, SELFPAY ==
[2023-05-23 14:40] VITALS: BP 157/102; PULSE 88; RESP 20; TEMP 36.6; O2SAT 97
[2023-05-23] MEDS: Iron Sucrose Complex 200 MG in 0.9 % Sodium Chloride 100 ML 440 MG IV (14:48)
== END 2023-05-23 14:31 | disposition home or self-care (01) ==
LOC: HO.MDS 14:30
PROVIDERS: Visit Provider Internal Medicine Medical Oncology
DX: D50.9 Iron deficiency anemia, unspecified (principal)
CPT/HCPCS: 96374; J1756

== ENCOUNTER 2023-05-30 15:04 | Emergency (ER) | payer OTHER, SELFPAY ==
--- NOTE | ~2023-05-30 | XR_ITS ---
EXAMINATION: XR CHEST CLINICAL INFORMATION: Chest pain COMPARISON: Chest x-ray on 12/10/2019 TECHNIQUE: 2 views of the chest were obtained. FINDINGS: No significant abnormality is noted involving the heart, lungs, mediastinum, bony thorax or soft tissues. XR/XR chest 2V IMPRESSION: Unremarkable examination.
--- NOTE | 2023-05-30 15:09 | ECG_ITS ---
Test Reason : CP Blood Pressure : / mmHG Vent. Rate : 099 BPM Atrial Rate : 099 BPM P-R Int : 172 ms QRS Dur : 088 ms QT Int : 338 ms P-R-T Axes : 034 005 081 degrees QTc Int : 433 ms Normal sinus rhythm Possible Left atrial enlargement Minimal voltage criteria for LVH, may be normal variant ( R in aVL ) Borderline ECG When compared with ECG of 08-JUL-2022 12:04, Nonspecific T wave abnormality no longer evident in Inferior leads Nonspecific T wave abnormality, improved in Lateral leads Referred By: Generic ED Physician Electronically Signed By:EUGENE DOBBS MD
[2023-05-30 15:10] VITALS: BMI 60.1
[2023-05-30 15:24] VITALS: BP 168/108; PULSE 99; RESP 20; TEMP 37.1; O2SAT 95; BMI 62.6
--- NOTE | 2023-05-30 15:25 | ED_ITS ---
HPI - General Adult General Chief complaint: General Medical Stated complaint: chest pains, dizzy, nausea, diabetic Time Seen by Provider: 05/30/23 20:31 Source: patient and old records reviewed Mode of arrival: ambulatory Limitations: no limitations History of Present Illness HPI narrative: 32-year-old female with past medical history significant for diabetes, bipolar disorder anxiety, iron deficiency anemia, IBS presents for evaluation of weakness. Patient reports that she has been ?fatigued and tired all week. She reports that she has felt as if she is unable to get out of bed Denies any fevers, chills pain She reports some mild mid back pain Patient has intermittent chest pains which she attributes to her anxiety Currently she does not have chest pain Denies any vomiting or diarrhea no black or bloody stool No other complaints or concerns at this time Related Data Home Medications ?Medication ?Instructions ?Recorded ?Confirmed aripiprazole 5 mg tablet 5 mg PO DAILY 11/19/22 03/28/23 Previous Rx's ?Medication ?Instructions ?Recorded blood-glucose meter (LoggedInStyle #1 ea 02/23/20 Lite Meter kit) lancets 30 gauge #100 ea 10/31/20 fluticasone 100 mcg-salmeterol 50 1 inh inhalation BID 30 days #60 ea 05/21/21 mcg/dose blistr powdr for inhalation (Advair Diskus) lorazepam 0.5 mg tablet 0.5 mg PO DAILY PRN anxiety 30 04/19/22 days #30 tabs amitriptyline 25 mg tablet 25 mg PO BEDTIME #30 tabs 07/04/22 gabapentin 300 mg capsule 300 mg PO BEDTIME #90 caps 08/01/22 blood sugar diagnostic (FreeStyle #50 ea 08/14/22 Lite Strips) bupropion HCl 300 mg 24 hr tablet, 300 mg PO QAM 90 days #90 tabs 11/08/22 extended release duloxetine 60 mg capsule,delayed 60 mg PO DAILY 90 days #90 caps 11/08/22 release (Cymbalta) albuterol sulfate 90 mcg/actuation 1 inh inhalation QID PRN shortness 12/04/22 aerosol inhaler (Ventolin HFA) of breath or wheezing 30 days #6.7 grams hydrochlorothiazide 25 mg tablet 25 mg PO DAILY #90 tabs 12/31/22 semaglutide 0.25 mg or 0.5 mg (2 0.25 mg (0.368 mL) subcut QWEEK 30 03/28/23 mg/3 mL) subcutaneous pen injector days #2 mL losartan 50 mg tablet 50 mg PO DAILY 90 days #90 tabs 04/04/23 Allergies Allergy/AdvReac Type Severity Reaction Status Date / Time amoxicillin [Amoxicillin] Allergy Unknown rash Verified 05/30/23 15:33 walnut Allergy Unknown throat Verified 05/30/23 15:33 itching Review of Systems 2 Constitutional: Constitutional: Reports as per HPI, Denies chills, Reports fatigue, Denies fever(s), Reports headache(s), Reports lethargy and Reports malaise ENT: Reports headache(s) Cardiovascular: Cardiovascular: Reports chest pain Respiratory: Respiratory: Denies cough Gastrointestinal: Gastrointestinal: Denies constipation and Denies vomiting Genitourinary: Genitourinary: Denies dysuria Musculoskeletal: Musculoskeletal: Reports back pain Integumentary/Breasts: Skin/Breast: Denies rash Neurologic: Reports headache(s) and Denies focal weakness Psychiatric: Psychiatric: Reports anxiety and Denies suicidal ideation Endocrine: Endocrine: Reports fatigue PMFSH Past Medical History Medical History H/O bipolar disorder Suicidal thoughts Irritable bowel syndrome Fibromyalgia Diabetes Insomnia Leukocytosis Thrombocytosis Acute anxiety Depression Anemia HTN (hypertension) Asthma Surgical History History of esophagogastroduodenoscopy (EGD) History of laparoscopic cholecystectomy Family History Family History Sister Brain tumor Maternal Uncle Throat cancer Paternal Grandmother Leukemia Mother Fibromyalgia Maternal Grandmother Cancer of kidney Brother No problems noted. Brother No problems noted. Other Mental health disorder Substance use disorder Social History Social History Household Members: Family Housing: Apartment Are you a primary medicare sales executive to a significant other at home: No Do you presently have visiting nurse or other home services: No Alcohol intake: never Patient Tobacco Use Status: Never used Tobacco e-Cigarette/Vaping Use: Never Used Advance Directives: No Advance Directives Information Provided: No Current occupational status: unemployed Sexual orientation: Straight/Heterosexual Gender identity: Female Cognitive needs: No Hearing needs: No Vision needs: No Physical Exam ED Vital Signs: Vital Signs - 24 hr 05/30/23 15:24 05/30/23 20:01 Temperature 98.7 F Pulse Rate 99 92 Respiratory Rate 20 18 Blood Pressure 168/108 H 161/107 H Pulse Oximetry 95 95 Oxygen Delivery Method Room Air Room Air BMI result Body Mass Index 62.6 Const General: healthy appearing, comfortable, no acute distress, alert and awake Nutritional Appearance: well nourished Orientation/consciousness: patient oriented x3 HENMT Head: Yes normocephalic and Yes atraumatic Eyes Eyelids: Yes eyelids normal Conjunctivae: conjunctivae normal Sclerae: sclerae normal Corneas: corneas normal Pupils: Equal, round and reactive pupils present EOM: EOMs intact bilaterally Neck Neck: Yes full ROM Resp Effort & Inspection: normal respiratory effort, able to speak in complete sentences, no audible wheezes and not labored Auscultation: clear to auscultation bilaterally Cardio Rate: regular rate Rhythm: regular rhythm GI Inspection: No distended Palpation (GI): Soft to palpation, not firm, nontender, no guarding and not rigid Skin General skin exam: elasticity normal Neuro General: patient oriented x3 Cranial nerves: Yes Equal, round and reactive pupils present and Yes Bilaterally intact EOM present Cognition (Neuro): normal cognition Extrem Other: Moving all extremities well without any obvious deformities Course Course Course Narrative: RME performed by Sandra Enriquez PA-C. Patient is a 32 year old assigned female at presenting to the emergency department with chest pain and dizziness. Detailed physical exam and review of systems are deferred to the business systems architect. Labs, imaging, and swabs ordered. Patient placed back in the waiting room pending room availability and results. Medical Decision Making Medical Decision Making MDM Narrative: 32-year-old female presents for evaluation of vague symptoms. She complains of headache, fatigue, lack of energy. She has a mild leukocytosis to 12.9 which is consistent with her baseline. There is no significant left shift. She has no anemia. Her electrolytes are within normal limits. Her glucose is elevated to 2 or 3. She has a known history of diabetes. There is no evidence of DKA. Total protein of 8.4. TSH is pending. Patient's EKG is normal sinus rhythm with a rate of [address] segment elevations or depressions. Patient's workup is also unremarkable, her physical exam is reassuring vital signs are stable. She is mildly hypertensive. Again, TSH is pending however I feel that viral syndrome is most likely diagnosis. She ruled out for ACS as she has had chest pain for over 2 days and negative troponin. EKG is nonischemic, the patient is not sexually active Differential Diagnosis Differential Diagnoses: The differential diagnosis associated with the presentation includes Viral syndrome Respiratory infection Hypothyroidism Gastritis Influenza Pneumonia Lab Data MDM Lab Attestation statement: I reviewed the patient's lab results. See above 05/30/23 15:38 05/30/23 15:38 Labs: Lab Results 05/30/23 05/30/23 Range/Units 15:34 15:38 WBC 12.9 H (4.8-10.8) X10*3/uL RBC 5.05 (4.20-5.50) X10*6/uL Hgb 12.9 (12.0-16.0) g/dl Hct 40.8 (37.0-47.0) % MCV 80.8 (80.0-98.0) fL MCH 25.5 L (27.0-33.0) pg MCHC 31.6 (31.0-35.0) g/dl RDW 21.8 H (11.0-16.0) % Plt Count 490 H (160-400) X10*3/uL MPV 8.6 L (9.4-12.3) fL Immature Gran % (Auto) 1.1 H (0.0-0.4) % Neut % (Auto) 61.2 (45-73) % Lymph % (Auto) 31.0 (20-40) % Union % (Auto) 5.0 (2-11) % Eos % (Auto) 1.2 (0-4) % Baso % (Auto) 0.5 (0-2) % Lymph # (Auto) 4.0 (1.2-4.9) X10*3/uL Union # (Auto) 0.6 (0.1-1.2) X10*3/uL Eos # (Auto) 0.2 (0.0-0.4) X10*3/uL Baso # (Auto) 0.1 (0.0-0.2) X10*3/uL Abs Immat Gran (auto) 0.14 H (0.00-0.03) X10*3/uL Absolute Neuts (auto) 7.9 (2.0-8.3) x10*3/uL Absolute Nucleated RBC 0.000 (0.0-0.012) X10*3/uL Nucleated RBC % (auto) 0.0 (0.0-0.2) /100WBC PT 12.8 (11.1-13.3) SEC INR 1.1 (0.9-1.1) APTT 31.9 (26.0-36.8) SEC Sodium 137 (135-145) mmol/L Potassium 3.9 (3.3-5.1) mmol/L Chloride 102 (96-108) mmol/L Carbon Dioxide 26 (22-29) mmol/L Anion Gap 13 (12-20) BUN 15 (9-16) mg/dL Creatinine 0.69 (0.5-1.4) mg/dL Estim Creat Clear Calc 181.2 Estimated GFR > 60 POC Glucose 206 H (60-115) mg/dL Random Glucose 203 H (60-115) mg/dL Calcium 9.6 (8.4-10.2) mg/dL Magnesium 1.9 (1.6-2.6) mg/dL Total Bilirubin 0.3 (0.0-1.0) mg/dL AST 12 (5-31) U/L ALT 13 (0-31) U/L Alkaline Phosphatase 72 (39-117) U/L Troponin I High Sens < 2.7 (<3.5-17.0) ng/L Total Protein 8.4 H (6.5-8.0) g/dL Albumin 4.3 (3.5-5.0) g/dL Influenza Type A (PCR) NEGATIVE (Negative) Influenza Type B (PCR) NEGATIVE (Negative) RSV RNA Qual (PCR) NEGATIVE (Negative) SARS-CoV-2 RNA (RT-PCR) NEGATIVE (Negative) Independent Interpretation I performed an independent interpretation of an: EKG and Plain X-Ray (No focal infiltrates or effusions) Interpretation: See above Discharge Plan Discharge Clinical Impression: Fatigue, Headache Patient Disposition: Home, Self-Care Instructions: Fatigue (ED) Additional Instructions: Your workup in the ER today was reassuring. This includes your viral swabs, blood work, chest x-ray, EKG. Your symptoms are most likely related to viral origin Follow-up with your primary doctor return for new or worsening symptoms Prescriptions: No Action (DME) lancets 30 gauge misc See Rx Instructions .ROUTE .MEDSUPPLY Qty: 100 0RF Rx Instructions: Check blood sugar daily or as needed for symptomatic low or high glucose fluticasone propion-salmeterol [Advair Diskus] 100-50 mcg/dose blister with device 1 inh inhalation BID 30 Days Qty: 60 3RF amitriptyline 25 mg tablet 25 mg PO BEDTIME Qty: 30 3RF gabapentin 300 mg capsule 300 mg PO BEDTIME Qty: 90 0RF (DME) FreeStyle Lite Strips Strip See Rx Instructions .ROUTE .MEDSUPPLY Qty: 50 2RF Rx Instructions: Check blood sugar daily or as needed for symptomatic low or high glucose duloxetine [Cymbalta] 60 mg capsule,delayed release(DR/EC) 60 mg PO DAILY 90 Days Qty: 90 0RF bupropion HCl 300 mg tablet extended release 24 hr 300 mg PO QAM 90 Days Qty: 90 0RF albuterol sulfate [Ventolin HFA] 90 mcg/actuation HFA aerosol inhaler 1 inh inhalation QID PRN (Reason: shortness of breath or wheezing) 30 Days Qty: 6.7 4RF losartan 50 mg tablet 50 mg PO DAILY 90 Days Qty: 90 0RF (DME) blood-glucose meter [FreeStyle Lite Meter] Kit See Rx Instructions .ROUTE .MEDSUPPLY Qty: 1 0RF Rx Instructions: Check blood sugar daily or as needed for symptomatic low or high glucose semaglutide 0.25 mg or 0.5 mg (2 mg/3 mL) pen injector 0.25 mg subcut QWEEK 30 Days Qty: 2 2RF Rx Instructions: for 4 weeks lorazepam 0.5 mg tablet 0.5 mg PO DAILY PRN (Reason: anxiety) 30 Days Qty: 30 0RF hydrochlorothiazide 25 mg tablet 25 mg PO DAILY Qty: 90 2RF aripiprazole 5 mg tablet 5 mg PO DAILY Print Language: Bahamian
[2023-05-30 15:43] LABS: MANUAL DIFF FLAG NO
[2023-05-30 15:55] LABS: Basophils Absolute Auto 0.1 X10*3/uL (0.0-0.2); Basophils Percent Auto 0.5 % (0-2); Eosinophils Absolute Auto 0.2 X10*3/uL (0.0-0.4); Eosinophils Percent Auto 1.2 % (0-4); Hematocrit 40.8 % (37.0-47.0); Hemoglobin 12.9 g/dl (12.0-16.0); Imm Gran Abs Auto 0.14 X10*3/uL (0.00-0.03); Imm Gran Pct Auto 1.1 % (0.0-0.4); Mean Corpuscular HGB Conc 31.6 g/dl (31.0-35.0); Mean Corpuscular Hemoglobin 25.5 pg (27.0-33.0); Mean Corpuscular Volume 80.8 fL (80.0-98.0); Mean Platelet Volume 8.6 fL (9.4-12.3); Monocytes Absolute Auto 0.6 X10*3/uL (0.1-1.2); Neutrophils Absolute Auto 7.9 x10*3/uL (2.0-8.3); Neutrophils Percent Auto 61.2 % (45-73); Platelet Count 490 X10*3/uL (160-400); Red Blood Count 5.05 X10*6/uL (4.20-5.50); Red Cell Distribution Width 21.8 % (11.0-16.0); White Blood Count 12.9 X10*3/uL (4.8-10.8)
[2023-05-30 15:58] LABS: INTERNATIONAL NORM RATIO 1.1 (0.9-1.1); Prothrombin Time 12.8 SEC (11.1-13.3)
[2023-05-30 16:01] LABS: Partial Thromboplastin Time 31.9 SEC (26.0-36.8)
[2023-05-30 16:03] LABS: Alanine Aminotransferase 13 U/L (0-31); Albumin Level 4.3 g/dL (3.5-5.0); Alkaline Phosphatase 72 U/L (39-117); Anion Gap 13 (12-20); Aspartate Amino Transferase 12 U/L (5-31); Bilirubin Total 0.3 mg/dL (0.0-1.0); Blood Urea Nitrogen 15 mg/dL (9-16); Calcium 9.6 mg/dL (8.4-10.2); Carbon Dioxide 26 mmol/L (22-29); Chloride 102 mmol/L (96-108); Creatinine Clr Calc Pharmacy 181.2; Estimated Glomerular Filt Rate > 60; Glucose Random 203 mg/dL (60-115); Magnesium 1.9 mg/dL (1.6-2.6); Potassium 3.9 mmol/L (3.3-5.1); Sodium 137 mmol/L (135-145); Total Protein 8.4 g/dL (6.5-8.0)
[2023-05-30 16:13] LABS: Troponin-I High Sensitivity < 2.7 ng/L (<3.5-17.0)
[2023-05-30 16:30] LABS: Influenza A PCR NEGATIVE (Negative); Influenza B PCR NEGATIVE (Negative); Resp Syncy Virus RNA Qual PCR NEGATIVE (Negative); SARS COV2 PCR INHOUSE NEGATIVE (Negative)
[2023-05-30 16:54] LABS: Glucose, Whole Blood 206 mg/dL (60-115)
[2023-05-30 20:01] VITALS: BP 161/107; PULSE 92; RESP 18; O2SAT 95
[2023-05-30 22:02] LABS: TSH reflex Free T4 4.53 uIU/mL (0.32-4.0)
[2023-05-30 22:04] VITALS: BP 151/96; PULSE 98; RESP 16; TEMP 36.4; O2SAT 97
[2023-05-30 23:20] VITALS: BP 151/96; PULSE 98; RESP 16; TEMP 36.4; O2SAT 98
== END 2023-05-30 23:22 | disposition home or self-care (01) ==
PROVIDERS: Physician Assistant; Physician Assistant Medical; Emergency Provider Emergency Medicine; PCP Internal Medicine
DX: R53.83 Other fatigue (principal); R51.9 Headache, unspecified; E11.9 Type 2 diabetes mellitus without complications; I10 Essential (primary) hypertension; J45.909 Unspecified asthma, uncomplicated; Z88.0 Allergy status to penicillin
CPT/HCPCS: 0241U; 71046; 80053; 82947; 83735; 84439; 84443; 84484; 85025; 85610; 85730; 93005; 99283; 99284

== ENCOUNTER → 2023-05-30 15:09 | Outpatient (BNV) | payer OTHER, SELFPAY | PROVIDERS: Emergency Provider Emergency Medicine; PCP Internal Medicine; Visit Provider Internal Medicine Cardiovascular Disease | DX: R07.9 Chest pain, unspecified (principal) | CPT/HCPCS: 93010 ==

== ENCOUNTER 2023-10-08 14:37 | Outpatient (AMB) | payer OTHER, SELFPAY ==
--- NOTE | 2023-10-08 14:40 | A.OFFPC_ITS ---
Vital Signs 3 10/08/23 14:41 Height 5 ft 4 in Weight 366 lb 2 oz BMI 62.8 BP 142/88 H Blood Pressure Location Rt brachial Position Sitting Pulse 98 Pulse Source Pulse Oximeter Pulse Oximetry (%) 98 Oxygen Delivery Method Room Air Intake Visit Reasons: PE Allergies amoxicillin [Amoxicillin] Allergy (Unknown, Verified 10/08/23 14:45) rash walnut Allergy (Unknown, Verified 10/08/23 14:45) throat itching Medication List - Last Reconciled 10/08/23 by Devyn Power MD albuterol sulfate 90 mcg/actuation (Ventolin HFA) 1 inh inhalation QID PRN 30 days amitriptyline 25 mg PO BEDTIME aripiprazole 5 mg PO DAILY blood sugar diagnostic (FreeStyle Lite Strips) Check blood sugar daily or as needed for symptomatic low or high glucose blood-glucose meter (FreeStyle Lite Meter kit) Check blood sugar daily or as needed for symptomatic low or high glucose bupropion HCl XL 300 mg PO QAM 90 days duloxetine (Cymbalta) 60 mg PO DAILY 90 days fluticasone propion-salmeterol 100-50 mcg/dose (Advair Diskus) 1 inh inhalation BID 30 days gabapentin 300 mg PO BEDTIME hydrochlorothiazide 25 mg PO DAILY lancets Check blood sugar daily or as needed for symptomatic low or high glucose lorazepam 0.5 mg PO DAILY PRN 30 days losartan 50 mg PO DAILY 90 days semaglutide 0.25 mg (0.368 mL) subcut QWEEK 30 days Tobacco use date assessed: 10/08/23 Dental Screening Dental Screen Date: 10/08/23 Did you have a dental visit in the last 12 months?: Yes Did you have a dental problem in the last 6 months where you did not have access to dental care?: No Was dental information given to patient?: Patient has dentist HPI PE 2 HPI0 Details Patient is a 33-year-old female came today for physical exam She is established with [facility] Patient has developed stye eye lower eyelid for the past 3 days which is getting worse I would recommend to do warm compresses, I have also sent Polytrim eyedrops with the patient If not better patient is to get back to me Her hemoglobin A1c came back at 10.1% She is taking no medication currently for 2 diabetes I am starting her on Trulicity, patient's mother can administer the injection once a week We will also send in glucometer for the patient so she can start monitoring her blood pressure She will get back to me if there is a problem picking up Trulicity due to insurance reasons Last time she had labs in May her TSH was 4.24 we will be repeating that as well Patient is to return in 3 weeks for follow-up appointment Blood pressure is also 142/88 we will recheck in 3 weeks. Headaches has started again, patient is requesting referral back to Dr. Vanessa which I have placed for her [facility] Medical History H/O bipolar disorder Suicidal thoughts Irritable bowel syndrome Fibromyalgia Diabetes Insomnia Leukocytosis Thrombocytosis Acute anxiety Depression Anemia HTN (hypertension) Asthma Surgical History History of esophagogastroduodenoscopy (EGD) History of laparoscopic cholecystectomy Family History Sister Brain tumor Maternal Uncle Throat cancer Paternal Grandmother Leukemia Mother Fibromyalgia Maternal Grandmother Cancer of kidney Brother No problems noted. Brother No problems noted. Other Mental health disorder Substance use disorder Social History Household Members: Family Housing: Apartment Are you a primary rn progressive care unit to a significant other at home: No Do you presently have visiting nurse or other home services: No Alcohol intake: never Patient Tobacco Use Status: Never used Tobacco e-Cigarette/Vaping Use: Never Used Current occupational status: unemployed Sexual orientation: Straight/Heterosexual Gender identity: Female Cognitive needs: No Hearing needs: No Vision needs: No Questionnaire PHQ-9 Over the last 2 weeks, how often have you been bothered by any of the following problems? 1. Little interest or pleasure in doing things: several days 2. Feeling down, depressed, or hopeless: several days 3. Trouble falling or staying asleep, or sleeping too much: several days 4. Feeling tired or having little energy: several days 5. Poor appetite or overeating: several days 6. Feeling bad about yourself - or that you are a failure or have let yourself or your family down: more than half the days 7. Trouble concentrating on things, such as reading the newspaper or watching television: more than half the days 8. Moving or speaking so slowly that other people could have noticed. Or the opposite - being so fidgety or restless that you have been moving around a lot more than usual: not at all 9. Thoughts that you would be better off or of hurting yourself in some way: several days Total score: 10 Depression Screening Interpretation: Positive Depression Screening Follow-up: Existing condition and In treatment Depression Screening Done: Yes 41094 - PHQ-9 Billing: Yes Source: Developed by Drs. Bogdan Ann, Karyn Joe, Miko Thomas and colleagues, with an educational krystyna from [employer]. Thrive Questionnaire Date Thrive assessed: 10/08/23 I am a: Patient What is your living situation today?: I have a steady place to live Within the past 12 months, did the food you bought not last and you didn't have the money to get more?: Sometimes True Within the past 12 months, did you worry whether your food would run out before you got money to buy more?: Sometimes True Do you have trouble paying for medicines?: No Do you have trouble getting transportation to medical appointments?: No Do you have trouble paying your heating and electricity bill?: No Do you have trouble taking care of your child, family member or friend?: I choose not to answer this question Do you have trouble with day-to-day activities such as bathing, preparing meals, shopping, managing finances, etc.?: Yes Are you currently unemployed and looking for a job?: I choose not to answer this question Are you interested in more education?: Yes Please select the resources that you would like help with: Food Currently or been in a relationship where the following occur: No concerns reported THRIVE Score: 2 AUDIT C Alcohol Use Questionnaire (AUDIT-C) 1. How often do you have a drink containing alcohol?: Never 3. How often do you have six or more drinks on one occasion?: Never Total Score: 0 Score Reviewed/Action Taken: Yes RAJIV-7 AMB Questionnaire RAJIV-7 Date RAJIV - 7 assessed: 10/08/23 Feeling nervous, anxious, or on edge: 2 = More than half the days Not being able to stop or control worryin = Nearly every day Worrying too much about different things: 3 = Nearly every day Trouble relaxin = Nearly every day Being so restless that it is hard to sit still: 2 = More than half the days Becoming easily annoyed or irritable: 1 = Several days Feeling afraid as if something awful might happen: 2 = More than half the days Total RAJIV-7 score (0-4 normal; 5-9 mild; 10-14 moderate; 15-21 severe): 16 Source: Developed by Drs. Bogdan Ann, Karyn Joe, Miko Thomas and colleagues, with an educational krystyna from [employer]. RAJIV-7 Assessment Billing RAJIV-7 Assessment Tool: RAJIV-7 Assessment 29794 Review of Systems Const Denies chills, Denies fever(s) and Denies headache(s) ENT Denies headache(s), Denies nasal discharge, Denies nasal obstruction, Denies odynophagia and Denies sinus pain Card Denies chest pain at rest and Denies chest pain with activity Resp Denies cough and Denies hemoptysis GI Denies diarrhea, Denies odynophagia, Denies vomiting and Denies hematemesis Reports as per HPI Musc Denies abnormal gait Skin/Breast Reports as per HPI Neuro Denies Neuro-related abnormal movements, Denies Abnormal speech present, Denies abnormal gait, Denies headache(s) and Denies Sensory deficit (Neuro) Psych Denies mood swings and Denies paranoia Endo Reports as per HPI Elpidio/Lymph Reports as per HPI Aller/Immun Reports as per HPI Physical exam (Primary Care) Vital Signs: Last Vital Signs Pulse 98 10/08/23 14:41 BP 142/88 H 10/08/23 14:41 Pulse Ox 98 10/08/23 14:41 Oxygen Delivery Method Room Air 10/08/23 14:41 BMI result Body Mass Index 62.8 Tobacco/Smoking Status: Tobacco use Status Tobacco use date assessed 10/08/23 10/08/23 14:47 Patient Tobacco Use Status Never used Tobacco 10/08/23 14:43 e-Cigarette/Vaping Use Never Used 10/08/23 14:43 PHQ-9: PHQ-9 Score PHQ-9: Total score 10 10/08/23 14:58 Depression Screening Interpretation: Positive Depression Screening Follow-up: Existing condition and In treatment Thrive Assessment: Date of Thrive Assessment Date Thrive assessed 10/08/23 10/08/23 14:47 Currently or been in a relationship where the following occur: No concerns reported Const General: cooperative, comfortable and no acute distress Orientation/consciousness: patient oriented x3 HENMT Head: Yes normocephalic and Yes atraumatic Eyes Pupils: Equal, round and reactive pupils present EOM: EOMs intact bilaterally Eyes/upper lids images: 2 1. Stye Neck Neck: Yes supple and No lymphadenopathy Thyroid: Thyroid normal Lymphatic: no lymphadenopathy noted Resp Effort & Inspection: normal respiratory effort and able to speak in complete sentences Auscultation: clear to auscultation bilaterally Cardio Heart sounds: S1 normal heart sound present and S2 normal heart sound present GI Palpation (GI): Soft to palpation and nontender Auscultation: normal bowel sounds General: Yes no CVA tenderness Back/Spine/Pelvis Back: no CVA tenderness Skin General skin exam: elasticity normal and turgor normal Neuro General: patient oriented x3 and gait normal Cranial nerves: Yes Equal, round and reactive pupils present Speech: No Abnormal speech present Sensory Exam: No Sensory deficit (Neuro) Coordination: tandem gait normal and Romberg test negative Extrem General: Yes normal exam except as noted and No edema Results AMB Hemoglobin A1c 2 AMB Hemoglobin A1c 10.5 % Last Edit by Dez Jameson CMA on 10/08/23 15 :01 Results Reviewed Results Reviewed: Laboratory Last Values Hgb A1c (Clinic) 10.5 % (4.0-6.0) H 10/08/23 15:01 Assessment and Plan Assessment & Plan (1) Encounter for general adult medical examination with abnormal findings: Code(s): Z00.01 - Encounter for general adult medical examination with abnormal findings (2) TSH elevation: Code(s): R79.89 - Other specified abnormal findings of blood chemistry (3) Headache syndrome: Code(s): G44.89 - Other headache syndrome (4) Non-insulin dependent diabetes mellitus: (5) Morbid obesity: Code(s): E66.01 - Morbid (severe) obesity due to excess calories (6) Hypertension, essential: Code(s): I10 - Essential (primary) hypertension (7) Asthma, moderate: Code(s): J45.909 - Unspecified asthma, uncomplicated Qualifiers: Asthma complication type: uncomplicated Asthma persistence: persistent Qualified Code(s): J45.40 - Moderate persistent asthma, uncomplicated (8) Major depressive disorder, severe: Code(s): F32.2 - Major depressive disorder, single episode, severe without psychotic features (9) Bipolar 1 disorder: Code(s): F31.9 - Bipolar disorder, unspecified (10) Anxiety, generalized: Code(s): F41.1 - Generalized anxiety disorder (11) Fibromyalgia: Code(s): M79.7 - Fibromyalgia (12) Iron deficiency anemia: Code(s): D50.9 - Iron deficiency anemia, unspecified Qualifiers: Iron deficiency anemia type: chronic blood loss Qualified Code(s): D 50.0 - Iron deficiency anemia secondary to blood loss (chronic) Plan Patient is a 33-year-old female came today for physical exam She is established with [facility] Patient has developed stye eye lower eyelid for the past 3 days which is getting worse I would recommend to do warm compresses, I have also sent Polytrim eyedrops with the patient If not better patient is to get back to me Her hemoglobin A1c came back at 10.1% She is taking no medication currently for 2 diabetes I am starting her on Trulicity, patient's mother can administer the injection once a week We will also send in glucometer for the patient so she can start monitoring her blood pressure She will get back to me if there is a problem picking up Trulicity due to insurance reasons Last time she had labs in May her TSH was 4.24 we will be repeating that as well Patient is to return in 3 weeks for follow-up appointment Blood pressure is also 142/88 we will recheck in 3 weeks. Headaches has started again, patient is requesting referral back to Dr. Vanessa which I have placed for her Orders: Orders 2 TSH reflex Free T4 Today R79.89 - Other specified abnormal findings of blood chemistry AMB Hemoglobin A1c Today Z13.9 - Encounter for screening, unspecified Referrals 2 Neurology Referral G44.89 - Other headache syndrome Medications: New 2 dulaglutide (Trulicity) 0.75 mg (0.5 mL) subcut QWEEK 2 mL 0RF polymyxin B sulf-trimethoprim 10,000 unit- 1 mg/mL while awake; do not exceed 6 doses in 24 hours 1 drp ophthalmic (eye) Q3H 10 mL 0RF 7 days Refilled 2 losartan 50 mg PO DAILY 90 tabs 2RF 90 days hydrochlorothiazide 25 mg PO DAILY 90 tabs 2RF I10 - Essential (primary) hypertension Discontinued 2 semaglutide for 4 weeks Discontinued Reason: Doctor's Order 0.25 mg (0.368 mL) subcut QWEEK 30 days 2 mL 2RF E66.01 - Morbid (severe) obesity due to excess calories Coding Level of Care Code Est Pt Level 4 (43809) New Pt Prev Care 18-39yr(80366 Diagnoses Encounter for general adult medical examination with abnormal findings Z00.01 TSH elevation R79.89 Headache syndrome G44.89 Non-insulin dependent diabetes mellitus Morbid obesity E66.01 Hypertension, essential I10 Moderate persistent asthma without complication J45.40 Asthma complication type: uncomplicated Asthma persistence: persistent Major depressive disorder, severe F32.2 Bipolar 1 disorder F31.9 Anxiety, generalized F41.1 Fibromyalgia M79.7 Iron deficiency anemia due to chronic blood loss D50.0 Iron deficiency anemia type: chronic blood loss Additional Codes RAJIV-7 Assessment Billing - RAJIV-7 Assessment Tool: RAJIV-7 Assessment 13594 ([id number])
[2023-10-08 14:41] VITALS: BP 142/88; PULSE 98; O2SAT 98; BMI 62.8
== END 2023-10-08 15:09 | disposition home or self-care (01) ==
PROVIDERS: PCP Internal Medicine; Visit Provider Internal Medicine
DX: Z00.01 Encounter for general adult medical examination with abnormal findings (principal); E66.01 Morbid (severe) obesity due to excess calories; F31.9 Bipolar disorder, unspecified; Z68.44 Body mass index [BMI] 60.0-69.9, adult; R79.89 Other specified abnormal findings of blood chemistry; G44.89 Other headache syndrome; I10 Essential (primary) hypertension; J45.40 Moderate persistent asthma, uncomplicated; F41.1 Generalized anxiety disorder; M79.7 Fibromyalgia; D50.0 Iron deficiency anemia secondary to blood loss (chronic)
CPT/HCPCS: 83036; 99214; 99395

== ENCOUNTER 2023-10-21 16:40 | Outpatient (REF) | payer OTHER, SELFPAY ==
[2023-10-21 16:49] LABS: MANUAL DIFF FLAG NO
[2023-10-21 17:22] LABS: Basophils Absolute Auto 0.1 X10*3/uL (0.0-0.2); Basophils Percent Auto 0.5 % (0-2); Eosinophils Absolute Auto 0.2 X10*3/uL (0.0-0.4); Eosinophils Percent Auto 1.6 % (0-4); Hematocrit 38.8 % (37.0-47.0); Hemoglobin 12.4 g/dl (12.0-16.0); Imm Gran Abs Auto 0.05 X10*3/uL (0.00-0.03); Imm Gran Pct Auto 0.5 % (0.0-0.4); Lymphocytes Absolute Auto 3.2 X10*3/uL (1.2-4.9); Lymphocytes Percent Auto 33.1 % (20-40); Mean Corpuscular Hemoglobin 27.1 pg (27.0-33.0); Mean Corpuscular Volume 84.9 fL (80.0-98.0); Monocytes Absolute Auto 0.6 X10*3/uL (0.1-1.2); Monocytes Percent Auto 5.9 % (2-11); Neutrophils Absolute Auto 5.6 x10*3/uL (2.0-8.3); Neutrophils Percent Auto 58.4 % (45-73); Platelet Count 514 X10*3/uL (160-400); Red Blood Count 4.57 X10*6/uL (4.20-5.50); Red Cell Distribution Width 14.1 % (11.0-16.0); White Blood Count 9.6 X10*3/uL (4.8-10.8)
[2023-10-21 18:29] LABS: Alanine Aminotransferase 23 U/L (0-31); Albumin Level 4.5 g/dL (3.5-5.0); Alkaline Phosphatase 75 U/L (39-117); Anion Gap 15 (12-20); Aspartate Amino Transferase 24 U/L (5-31); Bilirubin Total 0.4 mg/dL (0.0-1.0); Blood Urea Nitrogen 14 mg/dL (9-16); Calcium 9.9 mg/dL (8.4-10.2); Carbon Dioxide 21 mmol/L (22-29); Chloride 106 mmol/L (96-108); Estimated Glomerular Filt Rate > 60; Glucose Random 128 mg/dL (60-115); Potassium 3.9 mmol/L (3.3-5.1); Sodium 138 mmol/L (135-145); Total Protein 8.2 g/dL (6.5-8.0)
[2023-10-21 18:47] LABS: Ferritin 33 ng/mL (10-122)
== END 2023-10-21 16:41 | disposition home or self-care (01) ==
LOC: HO.LAB 16:40
PROVIDERS: Internal Medicine Medical Oncology; PCP Internal Medicine; Visit Provider Internal Medicine
DX: D64.9 Anemia, unspecified (principal)
CPT/HCPCS: 36415; 80053; 82728; 85025

== ENCOUNTER 2023-10-31 13:27 | Outpatient (AMB) | payer OTHER, SELFPAY ==
--- NOTE | 2023-10-31 13:42 | MHC.OFFWIV ---
Intake Vital Signs 10/31/23 13:43 Height 5 ft 5 in Weight 363 lb BMI 60.4 BP 132/88 Blood Pressure Location Rt radial Position Sitting Pulse 98 Pulse Source Pulse Oximeter Temp 98.7 F Temp Source Oral Pulse Oximetry (%) 98 Oxygen Delivery Method Room Air Intake Visit Reasons: EP Nausea, dizzy, headache Intake Note: pt c/o nausea, dizziness and headache. Started 2 weeks ago Patient Tobacco Use Status: Never used Tobacco Allergies amoxicillin [Amoxicillin] Allergy (Unknown, Verified 10/31/23 13:42) rash walnut Allergy (Unknown, Verified 10/31/23 13:42) throat itching Do you need a note to return to daycare/school/sports/work: No HPI EP Nausea, dizzy, headache HPI Details This is a 33 year old female patient with a PMH significant for morbid obesity, BPD, anxiety, depression, htn, T2DM, fibromyalgia, who presents today with report of a 2 week history of intermittent dizziness and nausea. She also reports a mild headache. She did have some episodes of vomiting last weekend, however no further incidents since then. She cannot recall any inciting events to these symptoms. Denies any known exposure to sick contacts. Denies fever. Has had some dizziness but no LOC or vertigo. Denies any chest pain, palpitations, upper respiratory symptoms. Denies chance of . [facility] Medical History H/O bipolar disorder Suicidal thoughts Irritable bowel syndrome Fibromyalgia Diabetes Insomnia Leukocytosis Thrombocytosis Acute anxiety Depression Anemia HTN (hypertension) Asthma Surgical History History of esophagogastroduodenoscopy (EGD) History of laparoscopic cholecystectomy Family History Sister Brain tumor Maternal Uncle Throat cancer Paternal Grandmother Leukemia Mother Fibromyalgia Maternal Grandmother Cancer of kidney Brother No problems noted. Brother No problems noted. Other Mental health disorder Substance use disorder Social History Household Members: Family Housing: Apartment Are you a primary career transition specialist to a significant other at home: No Do you presently have visiting nurse or other home services: No Alcohol intake: never Patient Tobacco Use Status: Never used Tobacco e-Cigarette/Vaping Use: Never Used Current occupational status: unemployed Sexual orientation: Straight/Heterosexual Gender identity: Female Cognitive needs: No Hearing needs: No Vision needs: No Review of Systems Const All systems reviewed & are unremarkable except as noted in HPI and below Physical Exam Vital Signs: Last Vital Signs Temp 98.7 F 10/31/23 13:43 Pulse 98 10/31/23 13:43 BP 132/88 10/31/23 13:43 Pulse Ox 98 10/31/23 13:43 Oxygen Delivery Method Room Air 10/31/23 13:43 BMI result Body Mass Index 60.4 Const General: cooperative and no acute distress Nutritional Appearance: obese Orientation/consciousness: patient oriented x3 HEENT Head: Yes normal to inspection, Yes normocephalic and Yes atraumatic Ears: hearing grossly normal bilaterally, external ears normal and TM's normal bilaterally General nose exam: Normal external nose present and Normal nasal mucous membranes and turbinates present Face and sinus: Yes normal facial exam Throat: Yes posterior oropharynx normal Eyes Alignment and Position: alignment normal Periorbital: periorbital findings normal Conjunctivae: conjunctivae normal Pupils: Equal, round and reactive pupils present and Pupil accommodation reflex normal EOM: EOMs intact bilaterally Direct Ophthalmoscopy: normal light reflex and no photophobia Neck Neck: Yes no lymphadenopathy Resp Effort & Inspection: normal respiratory effort Auscultation: clear to auscultation bilaterally Cardio Rate: regular rate Rhythm: regular rhythm Skin General skin exam: no rashes or lesions noted Neuro General: patient oriented x3 and no focal motor deficits Cranial nerves: Yes Equal, round and reactive pupils present and Yes Nystagmus not present Cognition (Neuro): normal cognition Extrem General: Yes capillary refill normal and Yes no clubbing, cyanosis or edema Psych Appearance: grossly normal Mental Status: mental status grossly normal Speech and movement: Normal speech and movement present Affect: normal affect Assessment & Plan Assessment & Plan (1) Nausea: Code(s): R11.0 - Nausea Plan: Patient presents with 2 week history of dizziness, nausea. EKG done in the office was NSR 90s. Physical assessment today was wnl; no abnormal findings. Declines any viral testing or test today. Symptoms likely related to viral illness. Will start her on Zofran to see if this helps with her nausea. Encouraged increased hydration, Tylenol as needed, and to f/u with us as needed if symptoms do not resolve with time and conservative measures. Of note, she had an appt. with her PCP Dr. Power today for a f/u (recently started Trulicity) however missed the appt. and decided to be seen at [facility] instead. I encouraged her to reschedule appt. with Dr. Power, for lab/medication/chronic condition f.u. She will do this prior to leaving office today. Orders: Orders AMB EKG-In Office Today R42 - Dizziness and giddiness Medications: New ondansetron Place one tablet under tongue and let dissolve. Take this up to 3 times a day as needed for nausea. 4 mg PO Q8H PRN 20 tabs 0RF nausea and vomiting R11.0 - Nausea Coding Level of Care Code Est Pt Level 4 (43091) Diagnoses Nausea R11.0
[2023-10-31 13:43] VITALS: BP 132/88; PULSE 98; TEMP 37.1; O2SAT 98; BMI 60.4
== END 2023-10-31 15:02 | disposition home or self-care (01) ==
PROVIDERS: PCP Internal Medicine; Visit Provider Nurse Practitioner Family
DX: R11.0 Nausea (principal)
CPT/HCPCS: 99214

== ENCOUNTER 2023-11-19 10:07 | Outpatient (AMB) | payer OTHER, SELFPAY ==
[2023-11-19 10:13] VITALS: BP 170/98; PULSE 84; O2SAT 98; BMI 60.4
--- NOTE | 2023-11-19 10:13 | MHC.PC.OV ---
Vital Signs 11/19/23 10:13 Height 5 ft 5 in Weight 363 lb BMI 60.4 BP 170/98 H Blood Pressure Location Lt radial Pulse 84 Pulse Source Pulse Oximeter Pulse Oximetry (%) 98 Oxygen Delivery Method Room Air Intake Visit Reasons: office visit Allergies amoxicillin [Amoxicillin] Allergy (Unknown, Verified 11/19/23 10:17) rash walnut Allergy (Unknown, Verified 11/19/23 10:17) throat itching Medication List - Last Reconciled 11/19/23 by Devyn Power MD albuterol sulfate 90 mcg/actuation (Ventolin HFA) 1 inh inhalation QID PRN 30 days alcohol swabs (Alcohol Wipes) 1 pad topical TID amitriptyline 25 mg PO BEDTIME aripiprazole 5 mg PO DAILY blood sugar diagnostic (FreeStyle Lite Strips) Check blood sugar three times daily before meals blood-glucose meter (FreeStyle Lite Meter kit) Check blood sugar three times daily before meals bupropion HCl XL 300 mg PO QAM 90 days dulaglutide (Trulicity) 0.75 mg (0.5 mL) subcut QWEEK duloxetine (Cymbalta) 60 mg PO DAILY 90 days fluticasone propion-salmeterol 100-50 mcg/dose (Advair Diskus) 1 inh inhalation BID 30 days hydrochlorothiazide 25 mg PO DAILY lancets (FreeStyle Lancets) Test blood sugar 3 times per day lorazepam 0.5 mg PO DAILY PRN 30 days losartan 50 mg PO DAILY 90 days polymyxin B sulf-trimethoprim 10,000 unit- 1 mg/mL 1 drp ophthalmic (eye) Q3H 7 days Tobacco use date assessed: 11/19/23 Dental Screening Dental Screen Date: 11/19/23 Did you have a dental visit in the last 12 months?: Yes Did you have a dental problem in the last 6 months where you did not have access to dental care?: No Was dental information given to patient?: Patient has dentist HPI office visit HPI Details Patient is a 33-year-old female came in today to talk about an incidence which has flared up her anxiety and PTSD feelings Patient seems very emotional and having difficulty talking about it She is also weeping and her mother is with her for support Few days ago patient was seen in walk-in clinic with a chief complaint of chest pain and had a EKG done Few days later diagnostic medical sonographer who performed a EKGs started sending message to patient trying to be friends with her Asking her if she is seeing somebody. Patient felt very uncomfortable, and now she is feeling overwhelmed and scared She has met with our behavior health coordinator We will assist patient further and will take action [facility], [facility] Medical History H/O bipolar disorder Suicidal thoughts Irritable bowel syndrome Fibromyalgia Diabetes Insomnia Leukocytosis Thrombocytosis Acute anxiety Depression Anemia HTN (hypertension) Asthma Surgical History History of esophagogastroduodenoscopy (EGD) History of laparoscopic cholecystectomy Family History Sister Brain tumor Maternal Uncle Throat cancer Paternal Grandmother Leukemia Mother Fibromyalgia Maternal Grandmother Cancer of kidney Brother No problems noted. Brother No problems noted. Other Mental health disorder Substance use disorder Social History Household Members: Family Housing: Apartment Are you a primary special needs caregiver to a significant other at home: No Do you presently have visiting nurse or other home services: No Alcohol intake: never Patient Tobacco Use Status: Never used Tobacco e-Cigarette/Vaping Use: Never Used Current occupational status: unemployed Sexual orientation: Straight/Heterosexual Gender identity: Female Cognitive needs: No Hearing needs: No Vision needs: No Questionnaire Thrive Questionnaire Date Thrive assessed: 10/08/23 I am a: Patient What is your living situation today?: I have a steady place to live Within the past 12 months, did the food you bought not last and you didn't have the money to get more?: Sometimes True Within the past 12 months, did you worry whether your food would run out before you got money to buy more?: Sometimes True Do you have trouble paying for medicines?: No Do you have trouble getting transportation to medical appointments?: No Do you have trouble paying your heating and electricity bill?: No Do you have trouble taking care of your child, family member or friend?: I choose not to answer this question Do you have trouble with day-to-day activities such as bathing, preparing meals, shopping, managing finances, etc.?: Yes Are you currently unemployed and looking for a job?: I choose not to answer this question Are you interested in more education?: Yes Please select the resources that you would like help with: Food Currently or been in a relationship where the following occur: No concerns reported THRIVE Score: 2 AUDIT C Alcohol Use Questionnaire (AUDIT-C) 1. How often do you have a drink containing alcohol?: Never 3. How often do you have six or more drinks on one occasion?: Never Total Score: 0 Score Reviewed/Action Taken: Yes RAJIV-7 AMB Questionnaire RAJIV-7 Date RAJIV - 7 assessed: 10/08/23 Source: Developed by Drs. Bogdan Ann, Karyn Joe, Miko Thomas and colleagues, with an educational krystnya from [employer]. Review of Systems Const Denies chills and Denies fever(s) ENT Denies epistaxis and Denies nasal discharge Card Denies chest pain Resp Denies chest congestion, Denies cough and Denies hemoptysis GI Denies diarrhea and Denies nausea Skin/Breast Denies rash Neuro Reports no additional complaints Psych Reports no additional complaints Endo Reports no additional complaints Physical exam (Primary Care) Vital Signs: Last Vital Signs Pulse 84 11/19/23 10:13 BP 170/98 H 11/19/23 10:13 Pulse Ox 98 11/19/23 10:13 Oxygen Delivery Method Room Air 11/19/23 10:13 BMI result Body Mass Index 60.4 Tobacco/Smoking Status: Tobacco use Status Tobacco use date assessed 11/19/23 11/19/23 10:18 Patient Tobacco Use Status Never used Tobacco 11/19/23 10:18 e-Cigarette/Vaping Use Never Used 11/19/23 10:18 Thrive Assessment: Date of Thrive Assessment Date Thrive assessed 10/08/23 11/19/23 10:18 Currently or been in a relationship where the following occur: No concerns reported Const General: cooperative Orientation/consciousness: patient oriented x3 HENMT Head: Yes normocephalic Eyes General: appearance normal, both eyes and all related structures Neck Neck: Yes supple Resp Effort & Inspection: normal respiratory effort, no cough and no stridor Skin General skin exam: turgor normal Neuro General: patient oriented x3, tone normal and moves all extremities Extrem Right lower extremity: no edema Left lower extremity: no edema Assessment and Plan Assessment & Plan (1) PTSD (post-traumatic stress disorder): Code(s): F43.10 - Post-traumatic stress disorder, unspecified (2) Panic anxiety syndrome: Code(s): F41.0 - Panic disorder [episodic paroxysmal anxiety] Plan Patient is a 33-year-old female came in today to talk about an incidence which has flared up her anxiety and PTSD feelings Patient seems very emotional and having difficulty talking about it She is also weeping and her mother is with her for support Few days ago patient was seen in walk-in clinic with a chief complaint of chest pain and had a EKG done Few days later diagnostic medical sonographer who performed a EKGs started sending message to patient trying to be friends with her Asking her if she is seeing somebody. Patient felt very uncomfortable, and now she is feeling overwhelmed and scared She has met with our behavior health coordinator We will assist patient further and will take action Coding Level of Care Code Est Pt Level 3 (49855) Diagnoses PTSD (post-traumatic stress disorder) F43.10 Panic anxiety syndrome F41.0
== END 2023-11-19 11:01 | disposition home or self-care (01) ==
PROVIDERS: PCP Internal Medicine; Visit Provider Internal Medicine
DX: F43.10 Post-traumatic stress disorder, unspecified (principal); F41.0 Panic disorder [episodic paroxysmal anxiety]

== ENCOUNTER → 2023-11-19 10:07 | Outpatient (BNVA) | payer OTHER, SELFPAY | PROVIDERS: PCP Internal Medicine; Visit Provider Internal Medicine | DX: F43.10 Post-traumatic stress disorder, unspecified (principal); F41.0 Panic disorder [episodic paroxysmal anxiety] | CPT/HCPCS: 99212 ==

== ENCOUNTER 2023-12-05 10:37 | Outpatient (AMB) | payer OTHER, SELFPAY ==
[2023-12-05 10:44] VITALS: BP 166/88; PULSE 100; O2SAT 97; BMI 60.1
--- NOTE | 2023-12-05 10:44 | A.OFFPC_ITS ---
Vital Signs 12/05/23 10:44 Height 5 ft 5 in Weight 361 lb 6 oz BMI 60.1 BP 166/88 H Blood Pressure Location Rt radial Pulse 100 Pulse Source Pulse Oximeter Pulse Oximetry (%) 97 Oxygen Delivery Method Room Air Intake Visit Reasons: 2-3 week follow up Allergies amoxicillin [Amoxicillin] Allergy (Unknown, Verified 12/05/23 10:47) rash walnut Allergy (Unknown, Verified 12/05/23 10:47) throat itching Medication List - Last Reconciled 12/05/23 by Devyn Power MD albuterol sulfate 90 mcg/actuation (Ventolin HFA) 1 inh inhalation QID PRN 30 days alcohol swabs (Alcohol Wipes) 1 pad topical TID amitriptyline 25 mg PO BEDTIME aripiprazole 5 mg PO DAILY blood sugar diagnostic (FreeStyle Lite Strips) Check blood sugar three times daily before meals blood-glucose meter (FreeStyle Lite Meter kit) Check blood sugar three times daily before meals bupropion HCl XL 300 mg PO QAM 90 days dulaglutide (Trulicity) 0.75 mg (0.5 mL) subcut QWEEK duloxetine (Cymbalta) 60 mg PO DAILY 90 days fluticasone propion-salmeterol 100-50 mcg/dose (Advair Diskus) 1 inh inhalation BID 30 days hydrochlorothiazide 25 mg PO DAILY lancets (FreeStyle Lancets) Test blood sugar 3 times per day lorazepam 0.5 mg PO DAILY PRN 30 days losartan 50 mg PO DAILY 90 days polymyxin B sulf-trimethoprim 10,000 unit- 1 mg/mL 1 drp ophthalmic (eye) Q3H 7 days Tobacco use date assessed: 12/05/23 Dental Screening Dental Screen Date: 12/05/23 Did you have a dental visit in the last 12 months?: Yes Did you have a dental problem in the last 6 months where you did not have access to dental care?: No Was dental information given to patient?: Patient has dentist HPI 2-3 week follow up HPI Details Patient is 33-year-old female came in today for her follow-up appointment She has a history of diabetes mellitus, last hemoglobin A1c was very high in September that is when she was started on Trulicity, however patient says that she was not able to scrap picker the script and has not been taking it in 1 month Her TSH level came back high in May, we will be repeating that again today Patient also suffers from hypertension, blood pressure continued to be elevated, she says that she is anxious She does have a severe anxiety and severe depression, for that she is seeing a psychiatrist and is taking Abilify Wellbutrin Cymbalta and lorazepam as needed Patient is on hydrochlorothiazide 25 mg and losartan 50 mg for hypertension She is morbidly obese with BMI of 60.1 and is having difficulty losing weight She said that she is checking her sugars at home and they are running reasonably controlled even without Trulicity Asthma is stable continue Advair She offers no new complaints today Follow-up 3 months [facility] Medical History H/O bipolar disorder Suicidal thoughts Irritable bowel syndrome Fibromyalgia Diabetes Insomnia Leukocytosis Thrombocytosis Acute anxiety Depression Anemia HTN (hypertension) Asthma Surgical History History of esophagogastroduodenoscopy (EGD) History of laparoscopic cholecystectomy Family History Sister Brain tumor Maternal Uncle Throat cancer Paternal Grandmother Leukemia Mother Fibromyalgia Maternal Grandmother Cancer of kidney Brother No problems noted. Brother No problems noted. Other Mental health disorder Substance use disorder Social History Household Members: Family Housing: Apartment Are you a primary health care analyst to a significant other at home: No Do you presently have visiting nurse or other home services: No Alcohol intake: never Patient Tobacco Use Status: Never used Tobacco e-Cigarette/Vaping Use: Never Used Current occupational status: unemployed Sexual orientation: Straight/Heterosexual Gender identity: Female Cognitive needs: No Hearing needs: No Vision needs: No Questionnaire Thrive Questionnaire Date Thrive assessed: 12/05/23 I am a: Patient What is your living situation today?: I have a steady place to live Within the past 12 months, did the food you bought not last and you didn't have the money to get more?: Sometimes True Within the past 12 months, did you worry whether your food would run out before you got money to buy more?: Sometimes True Do you have trouble paying for medicines?: No Do you have trouble getting transportation to medical appointments?: No Do you have trouble paying your heating and electricity bill?: No Do you have trouble taking care of your child, family member or friend?: I choose not to answer this question Do you have trouble with day-to-day activities such as bathing, preparing meals, shopping, managing finances, etc.?: Yes Are you currently unemployed and looking for a job?: I choose not to answer this question Are you interested in more education?: Yes Please select the resources that you would like help with: Food Currently or been in a relationship where the following occur: No concerns reported THRIVE Score: 2 AUDIT C Alcohol Use Questionnaire (AUDIT-C) 1. How often do you have a drink containing alcohol?: Never 3. How often do you have six or more drinks on one occasion?: Never Total Score: 0 Score Reviewed/Action Taken: Yes RAJIV-7 AMB Questionnaire RAJIV-7 Date RAJIV - 7 assessed: 10/08/23 Source: Developed by Drs. Bogdan Ann, Karyn Joe, Miko Thomas and colleagues, with an educational krystyna from [employer]. Review of Systems Const Denies chills and Denies fever(s) ENT Denies epistaxis and Denies nasal discharge Card Denies chest pain Resp Denies chest congestion, Denies cough and Denies hemoptysis GI Denies diarrhea and Denies nausea Skin/Breast Denies rash Neuro Reports no additional complaints Psych Reports no additional complaints Endo Reports no additional complaints Physical exam (Primary Care) Vital Signs: Last Vital Signs Pulse 100 12/05/23 10:44 BP 166/88 H 12/05/23 10:44 Pulse Ox 97 12/05/23 10:44 Oxygen Delivery Method Room Air 12/05/23 10:44 BMI result Body Mass Index 60.1 Tobacco/Smoking Status: Tobacco use Status Tobacco use date assessed 12/05/23 12/05/23 10:48 Patient Tobacco Use Status Never used Tobacco 12/05/23 10:48 e-Cigarette/Vaping Use Never Used 12/05/23 10:48 Thrive Assessment: Date of Thrive Assessment Date Thrive assessed 12/05/23 12/05/23 10:48 Currently or been in a relationship where the following occur: No concerns reported Const General: cooperative, comfortable and no acute distress Orientation/consciousness: patient oriented x3 HENSC Head: Yes normocephalic Eyes General: appearance normal, both eyes and all related structures Neck Neck: Yes supple Resp Effort & Inspection: normal respiratory effort, no cough and no stridor Cardio Rhythm: regular rhythm Heart sounds: S1 normal heart sound present and S2 normal heart sound present Skin General skin exam: turgor normal Neuro General: patient oriented x3, tone normal and moves all extremities Extrem Right lower extremity: no edema Left lower extremity: no edema Coding Level of Care Code Est Pt Level 4 (27101) Complex EM visit Add On G2211 Diagnoses Non-insulin dependent diabetes mellitus TSH elevation R79.89 Hypertension, essential I10 Major depressive disorder, severe F32.2 Anxiety, generalized F41.1 Bipolar 1 disorder F31.9 Morbid obesity E66.01 Moderate persistent asthma without complication J45.40 Asthma persistence: persistent Asthma complication type: uncomplicated Assessment & Plan Assessment & Plan (1) Non-insulin dependent diabetes mellitus: Category: Medical (2) TSH elevation: Code(s): R79.89 - Other specified abnormal findings of blood chemistry Category: Medical (3) Hypertension, essential: Code(s): I10 - Essential (primary) hypertension Category: Medical (4) Major depressive disorder, severe: Code(s): F32.2 - Major depressive disorder, single episode, severe without psychotic features Category: Medical (5) Anxiety, generalized: Code(s): F41.1 - Generalized anxiety disorder Category: Medical (6) Bipolar 1 disorder: Code(s): F31.9 - Bipolar disorder, unspecified Category: Medical (7) Morbid obesity: Code(s): E66.01 - Morbid (severe) obesity due to excess calories Category: Medical (8) Asthma, moderate: Code(s): J45.909 - Unspecified asthma, uncomplicated Category: Medical Qualifiers: Asthma persistence: persistent Asthma complication type: uncomplicated Qualified Code(s): J45.40 - Moderate persistent asthma, uncomplicated Plan Patient is 33-year-old female came in today for her follow-up appointment She has a history of diabetes mellitus, last hemoglobin A1c was very high in September that is when she was started on Trulicity, however patient says that she was not able to scrap picker the script and has not been taking it in 1 month Her TSH level came back high in May, we will be repeating that again today Patient also suffers from hypertension, blood pressure continued to be elevated, she says that she is anxious She does have a severe anxiety and severe depression, for that she is seeing a psychiatrist and is taking Abilify Wellbutrin Cymbalta and lorazepam as needed Patient is on hydrochlorothiazide 25 mg and losartan 50 mg for hypertension She is morbidly obese with BMI of 60.1 and is having difficulty losing weight She said that she is checking her sugars at home and they are running reasonably controlled even without Trulicity Asthma is stable continue Advair She offers no new complaints today Follow-up 3 months Orders: Orders Hemoglobin A1c Today R79.89 - Other specified abnormal findings of blood chemistry TSH reflex Free T4 Today R79.89 - Other specified abnormal findings of blood chemistry Medications: Refilled dulaglutide (Trulicity) 0.75 mg (0.5 mL) subcut QWEEK 2 mL 3RF
== END 2023-12-05 11:02 | disposition home or self-care (01) ==
PROVIDERS: PCP Internal Medicine; Visit Provider Internal Medicine
DX: I10 Essential (primary) hypertension (principal); F31.9 Bipolar disorder, unspecified; E66.813 Obesity, class 3; Z68.44 Body mass index [BMI] 60.0-69.9, adult; R79.89 Other specified abnormal findings of blood chemistry; F41.1 Generalized anxiety disorder; J45.40 Moderate persistent asthma, uncomplicated

== ENCOUNTER → 2023-12-05 10:37 | Outpatient (BNVA) | payer OTHER, SELFPAY | PROVIDERS: PCP Internal Medicine; Visit Provider Internal Medicine | DX: R79.89 Other specified abnormal findings of blood chemistry (principal); I10 Essential (primary) hypertension; F32.2 Major depressive disorder, single episode, severe without psychotic features; F41.1 Generalized anxiety disorder; E66.01 Morbid (severe) obesity due to excess calories; J45.40 Moderate persistent asthma, uncomplicated | CPT/HCPCS: 99212 ==

== ENCOUNTER 2023-12-05 11:02 | Outpatient (REF) | payer OTHER, SELFPAY ==
[2023-12-05 13:54] LABS: Estimated Average Glucose 212 mg/dL; Hemoglobin A1C 236.3044 umol/L; Total Hemoglobin (HGBA1C) 3149.9364 umol/L
[2023-12-05 15:09] LABS: Free T4 (Free Thyroxine) 0.96 ng/dL (0.71-1.85)
== END 2023-12-05 11:03 | disposition home or self-care (01) ==
LOC: HO.HMGCLDS 11:02
PROVIDERS: PCP Internal Medicine; Visit Provider Internal Medicine
DX: R79.89 Other specified abnormal findings of blood chemistry (principal)
CPT/HCPCS: 36415; 83036; 84439; 84443

== ENCOUNTER 2024-05-26 10:14 | Outpatient (AMB) | payer OTHER, SELFPAY ==
[2024-05-26 10:16] VITALS: BP 144/82; PULSE 89; O2SAT 99; BMI 59.2
--- NOTE | 2024-05-26 10:16 | A.OFFPC_ITS ---
Vital Signs 05/26/24 10:16 Height 5 ft 5 in Weight 356 lb BMI 59.2 BP 144/82 H Blood Pressure Location Rt radial Position Sitting Pulse 89 Pulse Source Pulse Oximeter Pulse Oximetry (%) 99 Oxygen Delivery Method Room Air Intake Visit Reasons: 3M Follow UP Allergies amoxicillin [Amoxicillin] Allergy (Unknown, Verified 05/26/24 10:16) rash walnut Allergy (Unknown, Verified 05/26/24 10:16) throat itching Medication List - Last Reconciled 05/26/24 by Devyn Power MD albuterol sulfate 90 mcg/actuation (Ventolin HFA) 1 inh inhalation QID PRN 30 days alcohol swabs (Alcohol Wipes) 1 pad topical TID amitriptyline 25 mg PO BEDTIME aripiprazole 5 mg PO DAILY blood sugar diagnostic (FreeStyle Lite Strips) Check blood sugar three times daily before meals blood-glucose meter (FreeStyle Lite Meter kit) Check blood sugar three times daily before meals bupropion HCl XL 300 mg PO QAM 90 days dulaglutide (Trulicity) 0.75 mg (0.5 mL) subcut QWEEK duloxetine (Cymbalta) 60 mg PO DAILY 90 days fluticasone propion-salmeterol 100-50 mcg/dose (Advair Diskus) 1 inh inhalation BID 30 days hydrochlorothiazide 25 mg PO DAILY lancets (FreeStyle Lancets) Test blood sugar 3 times per day levothyroxine 50 mcg PO DAILY lorazepam 0.5 mg PO DAILY PRN 30 days losartan 50 mg PO DAILY 90 days polymyxin B sulf-trimethoprim 10,000 unit- 1 mg/mL 1 drp ophthalmic (eye) Q3H 7 days Tobacco use date assessed: 05/26/24 Dental Screening Dental Screen Date: 05/26/24 Did you have a dental visit in the last 12 months?: Yes Did you have a dental problem in the last 6 months where you did not have access to dental care?: No Was dental information given to patient?: Patient has dentist HPI 3M Follow UP HPI Details History The patient is a 33 year old female presenting with a request for medication review and reporting persistent headaches, heavy menstrual bleeding, and a non-healing abdominal wound. - The patient discontinued amitriptyline , previously used for migraines and pain, due to undesirable side effects. She is requesting referral to Neurology - Current medications include aripiprazo le, bupropion, duloxetine, losartan, levothyroxine, with lorazepam taken as needed, psychiatric medications through Psychiatry - Heavy menstrual bleeding is accompanie d by painful cramps, and the patient has plans for future family planning. Do not want to have IUD which was suggested by OBGYN - Trulicity has not been refilled, as rupal malcolm continued to miss her follow-up appointments and the patient indicates a need to resume it. Script sent - An abdominal wound that is superficial frequently reopens during showers, with no indication of infection. - Persistent headaches manifest as press ure, exacerbated pre-menstrually, previously addressed with propranolol and sumatriptan, warranting a neurology referral for ongoing management. Problem List - Major Depressive Disorder - Anxiety Disorder - Type 2 Diabetes Mellitus - Hypothyroidism - Essential Hypertension - Heavy Menstrual Bleeding - Cutaneous wound on abdomen - Migraine Patient Instructions - Monitor the wound on the abdomen and a llow it to air out at night to form a scab. - Resume Trulicity as prescribed once th e refill is processed. - Address headache concerns with a refer ral to a neurologist for further evaluation. - Follow up for thyroid and hemoglobin A 1c tests to assess medication adjustments. - Note that Thyroid medication dosage ma y change following lab results. - Schedule follow-up in three months or sooner if conditions worsen or new symptoms arise. Review of Systems - General: No fever no chills - Neurological: No headaches no dizziness - Ear nose throat: No sore throat no hearing difficulty no ear pain - Cardiovascular: No syncope, no chest pain, no palpitations - Gastrointestinal: No nausea vomiting or diarrhea - Endocrine: No polyuria polydipsia no heat intolerance - Genitourinary: No dysuria , no blood in urine Physical Exam General: No acute distress HEENT: No acute findings Neck: Supple Respiratory system: Able to talk in full sentences, no audible wheeze Cardiovascular: S1-S2 regular in rate and rhythm Gastrointestinal: No pain Extremities: No new findings RN SUPPLEMENTAL: Alert awake oriented x3 motor sensory intact Skin: Superficial cut on the belly, not infected, bleeding noted but currently stable [facility] Medical History H/O bipolar disorder Suicidal thoughts Irritable bowel syndrome Fibromyalgia Diabetes Insomnia Leukocytosis Thrombocytosis Acute anxiety Depression Anemia HTN (hypertension) Asthma Surgical History History of esophagogastroduodenoscopy (EGD) History of laparoscopic cholecystectomy Family History Sister Brain tumor Maternal Uncle Throat cancer Paternal Grandmother Leukemia Mother Fibromyalgia Maternal Grandmother Cancer of kidney Brother No problems noted. Brother No problems noted. Other Mental health disorder Substance use disorder Social History Household Members: Family Housing: Apartment Are you a primary home health care respiratory therapist to a significant other at home: No Do you presently have visiting nurse or other home services: No Alcohol intake: never Patient Tobacco Use Status: Never used Tobacco e-Cigarette/Vaping Use: Never Used Current occupational status: unemployed Sexual orientation: Straight/Heterosexual Gender identity: Female Cognitive needs: No Hearing needs: No Vision needs: No Questionnaire PHQ-9 Over the last 2 weeks, how often have you been bothered by any of the following problems? 1. Little interest or pleasure in doing things: nearly every day 2. Feeling down, depressed, or hopeless: nearly every day 3. Trouble falling or staying asleep, or sleeping too much: more than half the days 4. Feeling tired or having little energy: nearly every day 5. Poor appetite or overeating: more than half the days 6. Feeling bad about yourself - or that you are a failure or have let yourself or your family down: more than half the days 7. Trouble concentrating on things, such as reading the newspaper or watching television: more than half the days 8. Moving or speaking so slowly that other people could have noticed. Or the opposite - being so fidgety or restless that you have been moving around a lot more than usual: not at all 9. Thoughts that you would be better off or of hurting yourself in some way: several days Total score: 18 Depression Screening Interpretation: Positive Depression Screening Follow-up: Existing condition and In treatment Depression Screening Done: Yes 71436 - PHQ-9 Billing: Yes Source: Developed by Drs. Bogdan Ann, Karyn Joe, Miko Thomas and colleagues, with an educational krystyna from [employer]. Thrive Questionnaire Date Thrive assessed: 12/05/23 I am a: Patient What is your living situation today?: I have a steady place to live Within the past 12 months, did the food you bought not last and you didn't have the money to get more?: Sometimes True Within the past 12 months, did you worry whether your food would run out before you got money to buy more?: Sometimes True Do you have trouble paying for medicines?: No Do you have trouble getting transportation to medical appointments?: No Do you have trouble paying your heating and electricity bill?: No Do you have trouble taking care of your child, family member or friend?: I choose not to answer this question Do you have trouble with day-to-day activities such as bathing, preparing meals, shopping, managing finances, etc.?: I choose not to answer this question Are you currently unemployed and looking for a job?: I choose not to answer this question Are you interested in more education?: I choose not to answer this question Please select the resources that you would like help with: None Currently or been in a relationship where the following occur: I choose not to answer THRIVE Score: 2 AUDIT C Alcohol Use Questionnaire (AUDIT-C) 1. How often do you have a drink containing alcohol?: Never Total Score: 0 RAJVI-7 AMB Questionnaire RAJIV-7 Date RAJIV - 7 assessed: 10/08/23 Feeling nervous, anxious, or on edge: 1 = Several days Not being able to stop or control worryin = More than half the days Worrying too much about different things: 2 = More than half the days Trouble relaxin = More than half the days Being so restless that it is hard to sit still: 2 = More than half the days Becoming easily annoyed or irritable: 2 = More than half the days Feeling afraid as if something awful might happen: 3 = Nearly every day Total RAJIV-7 score (0-4 normal; 5-9 mild; 10-14 moderate; 15-21 severe): 14 Source: Developed by Drs. Bogdan Ann, Karyn Joe, Miko Thomas and colleagues, with an educational krystyna from [employer]. Physical exam (Primary Care) Vital Signs: Last Vital Signs Pulse 89 05/26/24 10:16 BP 144/82 H 04/02/25 10:16 Pulse Ox 99 05/26/24 10:16 Oxygen Delivery Method Room Air 05/26/24 10:16 BMI result Body Mass Index 59.2 Tobacco/Smoking Status: Tobacco use Status Tobacco use date assessed 05/26/24 05/26/24 10:23 Patient Tobacco Use Status Never used Tobacco 05/26/24 10:23 e-Cigarette/Vaping Use Never Used 05/26/24 10:23 PHQ-9: PHQ-9 Score PHQ-9: Total score 18 05/26/24 10:39 Depression Screening Interpretation: Positive Depression Screening Follow-up: Existing condition and In treatment Thrive Assessment: Date of Thrive Assessment Date Thrive assessed 12/05/23 05/26/24 10:23 Currently or been in a relationship where the following occur: I choose not to answer Coding Level of Care Code Est Pt Level 4 (05908) Complex EM visit Add On G2211 Diagnoses Other specified hypothyroidism E03.8 Non-insulin dependent diabetes mellitus Headache syndrome G44.89 TSH elevation R79.89 Hypertension, essential I10 Major depressive disorder, severe F32.2 Anxiety, generalized F41.1 Bipolar 1 disorder F31.9 Morbid obesity E66.01 Superficial contusion of skin T14.8XXA Additional Codes PHQ-9 - 27513 - PHQ-9 Billing: Yes ([id number]) Assessment & Plan Assessment & Plan (1) Other specified hypothyroidism: Code(s): E03.8 - Other specified hypothyroidism Category: Medical (2) Non-insulin dependent diabetes mellitus: Category: Medical (3) Headache syndrome: Code(s): G44.89 - Other headache syndrome Category: Medical (4) TSH elevation: Code(s): R79.89 - Other specified abnormal findings of blood chemistry Category: Medical (5) Hypertension, essential: Code(s): I10 - Essential (primary) hypertension Category: Medical (6) Major depressive disorder, severe: Code(s): F32.2 - Major depressive disorder, single episode, severe without psychotic features Category: Medical (7) Anxiety, generalized: Code(s): F41.1 - Generalized anxiety disorder Category: Medical (8) Bipolar 1 disorder: Code(s): F31.9 - Bipolar disorder, unspecified Category: Medical (9) Morbid obesity: Code(s): E66.01 - Morbid (severe) obesity due to excess calories Category: Medical (10) Superficial contusion of skin: Code(s): T14.8XXA - Other injury of unspecified body region, initial encounter Category: Medical Plan History The patient is a 33 year old female presenting with a request for medication review and reporting persistent headaches, heavy menstrual bleeding, and a non- healing abdominal wound. - The patient discontinued amitriptyline, previously used for migraines and pain, due to undesirable side effects. She is requesting referral to Neurology - Current medications include aripiprazole, bupropion, duloxetine, losartan, levothyroxine, with lorazepam taken as needed, psychiatric medications through Psychiatry - Heavy menstrual bleeding is accompanied by painful cramps, and the patient has plans for future family planning. Do not want to have IUD which was suggested by OBGYN - Trulicity has not been refilled, as patient continued to miss her follow-up appointments and the patient indicates a need to resume it. Script sent - An abdominal wound that is superficial frequently reopens during showers, with no indication of infection. - Persistent headaches manifest as pressure, exacerbated pre-menstrually, previously addressed with propranolol and sumatriptan, warranting a neurology referral for ongoing management. Problem List - Major Depressive Disorder - Anxiety Disorder - Type 2 Diabetes Mellitus - Hypothyroidism - Essential Hypertension - Heavy Menstrual Bleeding - Cutaneous wound on abdomen - Migraine Patient Instructions - Monitor the wound on the abdomen and allow it to air out at night to form a scab. - Resume Trulicity as prescribed once the refill is processed. - Address headache concerns with a referral to a neurologist for further evaluation. - Follow up for thyroid and hemoglobin A1c tests to assess medication adjustments. - Note that Thyroid medication dosage may change following lab results. - Schedule follow-up in three months or sooner if conditions worsen or new symptoms arise. Orders: Orders Hemoglobin A1c Today E03.8 - Other specified hypothyroidism, R10.9 - Unspecified abdominal pain TSH reflex Free T4 Today E03.8 - Other specified hypothyroidism, R10.9 - Unspecified abdominal pain Referrals Neurology Referral G44.89 - Other headache syndrome Medications: Refilled dulaglutide (Trulicity) 0.75 mg (0.5 mL) subcut QWEEK 2 mL 3RF
--- OUTSIDE RECORDS SUMMARY | 2024-05-26 11:56 | XMS_ITS | Encounter Summary ---
Author Organization [employer] Address [address] [facility] [address] [place] [address] Care Team Providers Care Bridge Construction Inspector Name Role Phone Unavailable Primary Care Provider Unavailabl e Encounter Details Date Type Department Care Team (Late st Contact Info) Description 08/30/2022 Telephone [facility] ADULT DENTAL [address] [place], [place] [phone] Todd Wade DMD [address] [place] [address] Social History Tobacco Use Types Packs/Day Years Used Date Smoking Tobacco: Never Smokeless Tobacco: Never Comments Unknown Sex and Gender Information Value Date Recorded Sex Assigned at Female 08/26/2022 8:40 AM EDT Legal Sex Female 8:36 AM EDT Gender Identity Female 08/26/2022 8:40 AM EDT Sexual Orientation Choose not to disclose 2022 8:40 AM EDT COVID-19 Exposure Response Date Recorded In the last 10 days, have yo u been in contact with someone who was confirmed or suspected to have Coronavirus/COVID-19? No / Unsure 08/26/2022 11:11 AM EDT documented as of this encounter Miscellaneous Notes * Telephone Encounter - Todd Wade DMD - 08/30/2022 1:46 PM EDT Hi, I sent three medications on August 26 and she should still has the medication * Telephone Encounter - Vicki Dumont - 08/30/2022 9:57 AM EDT Phoebe Chapa 1990 Patient was seen for emergency visit on 08/26/2022 and stated she is having a lot of pain and was wondering if something can be sent to the pharmacy please advise. documented in this encounter Plan of Treatment Not on file documented as of this encounter Visit Diagnoses Not on filedocumented in this encounter
--- OUTSIDE RECORDS SUMMARY | 2024-05-26 11:56 | XMS_ITS | Encounter Summary ---
Author Organization [employer] Address [address] [place] [address] [address] [place] [address] Care Team Providers Care Skiff Operator Name Role Phone Unavailable Primary Care Provider Unavailabl e Reason for Visit * Reason Onset Date Comments rs appt from 12/16/2023 Encounter Details Date Type Department Care Team ([facility] st Contact Info) Description 12/16/2023 Telephone [facility] ADULT DENTAL [address] [place] [address] George Quiroz, ZHENG [address] [place] [address] rs appt from April Social History Tobacco Use Types Packs/Day Years Used Date Smoking Tobacco: Never Smokeless Tobacco: Never Comments Unknown Sex and Gender Information Value Date Recorded Sex Assigned at Female 08/26/2022 8:40 AM EDT Legal Sex Female 8:36 AM EDT Gender Identity Female 08/26/2022 8:40 AM EDT Sexual Orientation Choose not to disclose 2022 8:40 AM EDT documented as of this encounter Miscellaneous Notes * Telephone Encounter - Rae Barba - 12/16/2023 1:04 PM EDT Patient is looking for rs consult appt with Dr. Quiroz April. It is not active requested and it hasnot been wait listed due to the length of time patient hasn't been seen. Pls reach out to patient DR documented in this encounter Plan of Treatment Not on file documented as of this encounter Visit Diagnoses Not on filedocumented in this encounter
--- OUTSIDE RECORDS SUMMARY | 2024-05-26 11:56 | XMS_ITS | Clinical Summary ---
Author Organization [employer] Address [address] [facility] [address] [place] [address] Care Team Providers Care Agriculture Consultant Name Role Phone Unavailable Primary Care Provider Unavailabl e Allergies Active Allergy Reactions Criticality Noted Date Comments Amoxicillin 08/26/2022 Medications Ventolin HFA 108 (90 Base) MCG/ACT inhaler TAKE 1 PUFF 4 TIMES A DAY NEEDED FOR SHORTNESS OF BREATH OR WHEEZING 3 Active ondansetron (Zofran) 4 MG tablet TAKE 1 TABLET BY MOUTH EVERY 8 HOURS NEEDED FOR NAUSEA/VOMITING FOR 7 DAYS 2 Active losartan (Cozaar) 25 MG tablet TAKE 1 TAB (25 MG) ORALLY DAILY FOR 30 DAYS 3 Active LORazepam (Ativan) 0.5 MG tablet TAKE 1 TABLET ORALLY DAILY NEEDED FOR ANXIETY FOR 30 DAYS 3 Active hydroCHLOROthia zide (HYDRODiuril) 25 MG tablet Take 25 mg by mouth in the morning. 3 Active FREESTYLE LITE test strip CHECK BLOOD SUGAR DAILY OR NEEDED FOR SYMPTOMATIC LOW OR HIGH GLUCOSE 3 Active glipiZIDE (Glucotrol) 5 MG tablet TAKE 1/2 TAB (2.5MG) BY MOUTH DAILY FOR 90 DAYS 3 Active gabapentin (Neurontin) 300 MG capsule TAKE 1 CAPSULE BY MOUTH EVERYDAY AT BEDTIME 3 Active DULoxetine (Cymbalta) [address] capsule Take 60 mg by mouth in the morning. 3 Active buPROPion XL (Wellbutrin XL) 300 MG 24 hr tablet Take 300 mg by mouth in the morning. 3 Active amitriptyline (Elavil) 25 MG tablet Take 25 mg by mouth at bedtime. 3 Active Social History Tobacco Use Types Packs/Day Years Used Date Smoking Tobacco: Never Smokeless Tobacco: Never Tobacco Cessation:Counseling Given: Not Answered Comments Unknown Sex and Gender Information Value Date Recorded Sex Assigned at Female 08/26/2022 8:40 AM EDT Legal Sex Female 8:36 AM EDT Gender Identity Female 08/26/2022 8:40 AM EDT Sexual Orientation Choose not to disclose 2022 8:40 AM EDT Plan of Treatment Health Maintenance Due Date Last Done Comments Dental Oral Exam 1989 Dental Prophylaxis 1989 Dental X-Ray: Full Mouth 1989 Depression Screening 1989 HIV Screening 1989 SDOH Screening 1989 Alcohol/Substance Use Screening 2001 Family Planning (PISQ) 2004 Hepatitis C Screening 06/19/2007 DTaP/Tdap/Td Vaccines (1 - Tdap) 2008 Hepatitis B Vaccines (1 of 3 - 19+ 3-dose series) 2008 Pap Smear 2010 Cervical Cancer Screening 06/19/2019 HPV/Cotest 06/19/2019 COVID-19 Vaccine (4 - 2023-2 5 season) 2023 02/13/2022, 01/09/2021, 05/07/2020 Influenza Vaccine (#1) 2023 Dental X-Ray: Bitewings 02/23/2024 02/22/20 23, 10/02/2022 Tobacco Screening 04/15/2024 04/15/2023 Zoster Vaccines (1 of 2) 06/19/2039 RSV Patients and Patients Aged 60 years or older (1 - 1-dose 75+ series) 2064 HIB Vaccines Aged Out No longer eligi ble based on patient's age to complete this topic HPV Vaccines Aged Out No longer eligi ble based on patient's age to complete this topic Hepatitis A Vaccines Aged Out No long er eligible based on patient's age to complete this topic IPV Vaccines Aged Out No longer eligi ble based on patient's age to complete this topic Meningococcal Vaccine Aged Out No cathleen zi eligible based on patient's age to complete this topic Pneumococcal Vaccine: Pediatrics (0 to 5 Years) and At-Risk Patients (6 to 49) Years) Aged Out No longer eligible b ased on patient's age to complete this topic RSV under 20 months Aged Out No longe r eligible based on patient's age to complete this topic Rotavirus Vaccines Aged Out No longer eligible based on patient's age to complete this topic Procedures Procedure Name Priority Date/Time Associated Diagnosis Comments BITEWING - SINGLE RADIOGRAPHIC IMAGE Routine 02/21/2023 11:30 AM EST from Last 3 Months or Most Recently Relevant to Health Maintenance Insurance [facility] MEDICAID STAND ADULT
== END 2024-05-26 10:40 | disposition home or self-care (01) ==
LOC: HO.HMCC 10:15
PROVIDERS: PCP Internal Medicine; Visit Provider Internal Medicine
DX: E03.8 Other specified hypothyroidism (principal); E66.01 Morbid (severe) obesity due to excess calories; F31.9 Bipolar disorder, unspecified; Z68.43 Body mass index [BMI] 50.0-59.9, adult; G44.89 Other headache syndrome; R79.89 Other specified abnormal findings of blood chemistry; I10 Essential (primary) hypertension; F41.1 Generalized anxiety disorder; T14.8XXA Other injury of unspecified body region, initial encounter

== ENCOUNTER 2024-05-26 10:14 | Outpatient (REF) | payer OTHER, SELFPAY ==
--- OUTSIDE RECORDS SUMMARY | 2024-05-26 12:42 | XMS_ITS | Encounter Summary ---
Author Organization [employer] Address [address] [facility] [address] [place] [address] Care Team Providers Care Semiconductor Package Symbol Stamper Name Role Phone Unavailable Primary Care Provider Unavailabl e Encounter Details Date Type Department Care Team (Late st Contact Info) Description 08/30/2022 Telephone [facility] ADULT DENTAL [address] [place], [place] [phone] Todd Wade DMD [address] [place] [address] Social History Tobacco Use Types Packs/Day Years [...]
--- OUTSIDE RECORDS SUMMARY | 2024-05-26 12:42 | XMS_ITS | Clinical Summary ---
Author Organization [employer] Address [address] [facility] [address] [place] [address] Care Team Providers Care Clinical Biochemist Name Role Phone Unavailable Primary Care Provider [...] Most Recently Relevant to Health Maintenance Insurance [facility] MEDICAID STAND ADULT
--- OUTSIDE RECORDS SUMMARY | 2024-05-26 12:42 | XMS_ITS | Encounter Summary ---
Author Organization [employer] Address [address] [place] [address] [address] [place] [address] Care Team Providers Care Entry Level Drafter Name Role Phone Unavailable Primary Care Provider Unavailabl e Reason for Visit * Reason Onset Date Comments rs appt from 12/16/2023 Encounter Details Date Type Department Care Team ([facility] st Contact Info) Description 12/16/2023 Telephone [facility] [address] [place] [address] George Quiroz, ZHENG [address] [place] [address] rs appt from April Social History Tobacco [...]
[2024-05-26 13:14] LABS: MANUAL DIFF FLAG NO
[2024-05-26 13:28] LABS: Basophils Percent Auto 0.3 % (0-2); Eosinophils Absolute Auto 0.1 X10*3/uL (0.0-0.4); Eosinophils Percent Auto 1.2 % (0-4); Hemoglobin 11.9 g/dl (12.0-16.0); Imm Gran Abs Auto 0.05 X10*3/uL (0.00-0.03); Imm Gran Pct Auto 0.4 % (0.0-0.4); Lymphocytes Absolute Auto 3.5 X10*3/uL (1.2-4.9); Lymphocytes Percent Auto 30.5 % (20-40); Mean Corpuscular HGB Conc 31.3 g/dl (31.0-35.0); Mean Corpuscular Hemoglobin 25.2 pg (27.0-33.0); Mean Corpuscular Volume 80.5 fL (80.0-98.0); Monocytes Absolute Auto 0.8 X10*3/uL (0.1-1.2); Monocytes Percent Auto 6.6 % (2-11); Platelet Count 603 X10*3/uL (160-400); Red Blood Count 4.72 X10*6/uL (4.20-5.50); Red Cell Distribution Width 15.9 % (11.0-16.0); White Blood Count 11.5 X10*3/uL (4.8-10.8)
[2024-05-26 13:41] LABS: Estimated Average Glucose 232 mg/dL; Hemoglobin A1C 264.0267 umol/L; Hemoglobin A1c % 9.7 % (<6.0); Total Hemoglobin (HGBA1C) 3181.6846 umol/L
[2024-05-26 14:09] LABS: Alanine Aminotransferase 14 U/L (0-31); Albumin Level 4.5 g/dL (3.5-5.0); Alkaline Phosphatase 74 U/L (39-117); Anion Gap 9 (12-20); Aspartate Amino Transferase 37 U/L (5-31); Bilirubin Total 0.2 mg/dL (0.0-1.0); Blood Urea Nitrogen 19 mg/dL (9-16); Calcium 9.9 mg/dL (8.4-10.2); Carbon Dioxide 24 mmol/L (22-29); Chloride 108 mmol/L (96-108); Estimated Glomerular Filt Rate > 60; Glucose Random 191 mg/dL (60-115); Potassium 4.4 mmol/L (3.3-5.1); Sodium 137 mmol/L (135-145); Total Protein 8.4 g/dL (6.5-8.0)
[2024-05-26 14:27] LABS: TSH reflex Free T4 2.02 uIU/mL (0.32-4.0)
[2024-05-27 08:13] LABS: LDL Cholesterol Direct 137 mg/dL (<100)
== END 2024-05-26 10:15 | disposition home or self-care (01) ==
LOC: HO.HMGCLDS 10:14
PROVIDERS: PCP Internal Medicine; Visit Provider Internal Medicine
DX: E03.8 Other specified hypothyroidism (principal); E11.9 Type 2 diabetes mellitus without complications; G44.89 Other headache syndrome; R79.89 Other specified abnormal findings of blood chemistry; I10 Essential (primary) hypertension; F43.10 Post-traumatic stress disorder, unspecified; F32.2 Major depressive disorder, single episode, severe without psychotic features; F41.1 Generalized anxiety disorder; N92.0 Excessive and frequent menstruation with regular cycle; F31.9 Bipolar disorder, unspecified; E66.01 Morbid (severe) obesity due to excess calories; T14.8XXA Other injury of unspecified body region, initial encounter; Z79.899 Other long term (current) drug therapy
CPT/HCPCS: 36415; 80053; 83036; 83721; 84443; 85025; 96127; 99212

== ENCOUNTER 2024-08-09 11:38 | Outpatient (AMB) | payer OTHER, SELFPAY ==
[2024-08-09 11:43] VITALS: BP 140/74; PULSE 103; TEMP 36.7; O2SAT 97; BMI 58.9
--- NOTE | 2024-08-09 11:43 | AM.OFFWIN_ITS ---
Intake Vital Signs 3 08/09/24 11:43 Height 5 ft 5 in Weight 354 lb 2 oz BMI 58.9 BP 140/74 H Blood Pressure Location Lt brachial Position Sitting Pulse 103 H Pulse Source Pulse Oximeter Temp 98.1 F Temp Source Oral Pulse Oximetry (%) 97 Oxygen Delivery Method Room Air Intake Visit Reasons: EP Pain in back, frequent urinating Intake Note: Pt presents to the office today for c/o pain in lower back, frequent urination x3 days. Patient Tobacco Use Status: Never used Tobacco Allergies amoxicillin [Amoxicillin] Allergy (Unknown, Verified 08/09/24 11:43) rash walnut Allergy (Unknown, Verified 08/09/24 11:43) throat itching HPI HPI Comments 2 History of Present Illness0 Details 34 y/o Female patient who presents to [facility] walk in clinic with c/o Right sided lower back/flank pain for 3 days. Reports that the pain is associated with urinary frequency. Denies Urinary urgency or dsyuria. Denies Vaginal symptoms. Denies fevers, chills, nausea or vomiting. [facility] Medical History (Updated 08/09/24 @ 12:25 by Sabina Carrasquillo NP) Right-sided back pain H/O bipolar disorder Suicidal thoughts Irritable bowel syndrome Fibromyalgia Diabetes Insomnia Leukocytosis Thrombocytosis Acute anxiety Depression Anemia HTN (hypertension) Asthma Surgical History History of esophagogastroduodenoscopy (EGD) History of laparoscopic cholecystectomy Family History Sister Brain tumor Maternal Uncle Throat cancer Paternal Grandmother Leukemia Mother Fibromyalgia Maternal Grandmother Cancer of kidney Brother No problems noted. Brother No problems noted. Other Mental health disorder Substance use disorder Social History Household Members: Family Housing: Apartment Are you a primary clinical care leader to a significant other at home: No Do you presently have visiting nurse or other home services: No Alcohol intake: never Patient Tobacco Use Status: Never used Tobacco e-Cigarette/Vaping Use: Never Used Current occupational status: unemployed Sexual orientation: Straight/Heterosexual Gender identity: Female Cognitive needs: No Hearing needs: No Vision needs: No Review of Systems Const All systems reviewed & are unremarkable except as noted in HPI and below Physical Exam Vital Signs: Last Vital Signs Temp 98.1 F 08/09/24 11:43 Pulse 103 H 08/09/24 11:43 BP 140/74 H 08/09/24 11:43 Pulse Ox 97 08/09/24 11:43 Oxygen Delivery Method Room Air 08/09/24 11:43 BMI result Body Mass Index 58.9 Const General: no acute distress Nutritional Appearance: obese morbidly obese Orientation/consciousness: patient oriented x3 Back/Spine/Pelvis Back: back tenderness Thoracic/Lumbar Spine: paraspinal muscle tenderness on the right and lumbar spinal tenderness at L4 and at L5 Back/spine/pelvis image: 2 1. TTP Neuro General: patient oriented x3, gait normal and moves all extremities Psych Speech and movement: Normal speech and movement present Results AMB Urinalysis, Automated 2 UA Leukoctes 0 Enzo/uL Last Edit by Charmaine Cruz CMA on 08/09/24 11:50 UA Nitrite Negative Last Edit by Charmaine Cruz CMA on 08/09/24 11:50 UA Urobilinogen 0.2 mg/dL Last Edit by Charmaine Cruz CMA on 08/09/24 11:50 UA Protein 30 mg/dL Last Edit by Charmaine Cruz CMA on 08/09/24 11:50 UA pH 6.0 Last Edit by Charmaine Cruz CMA on 08/09/24 11:50 UA Blood 0 Kavin/uL Last Edit by Charmaine Cruz CMA on 08/09/24 11:50 UA Specific [place] 1.030 Last Edit by Charmaine Cruz CMA on 08/09/24 11:50 UA Ketone Positive Last Edit by Charmaine Cruz CMA on 08/09/24 11:50 UA Bilirubin 1 mg/dL Last Edit by Charmaine Cruz CMA on 08/09/24 11:50 UA Glucose 500 mg/dL Last Edit by Charmaine Cruz CMA on 08/09/24 11:50 Results Reviewed Results Reviewed: Laboratory Last Values Urine pH (Auto) 6.0 08/09/24 11:48 Specific [place] (Auto) 1.030 08/09/24 11:48 Urine Protein (Auto) 30 mg/dL 08/09/24 11:48 Glucose (UA)(Auto) 500 mg/dL 08/09/24 11:48 Urine Ketones (Auto) Positive 08/09/24 11:48 Urine Blood (Auto) 0 Kavin/uL 08/09/24 11:48 Urine Nitrite (Auto) Negative 08/09/24 11:48 Urine Bilirubin (Auto) 1 mg/dL 08/09/24 11:48 Urine Urobilinogen (Auto) 0.2 mg/dL 08/09/24 11:48 Leukocyte Esterase (Auto) 0 Enzo/uL 08/09/24 11:48 Assessment & Plan Assessment & Plan (1) Right-sided back pain: Code(s): M54.9 - Dorsalgia, unspecified Qualifiers: Back pain location: low back pain Chronicity: acute Sciatica presence: without sciatica Qualified Code(s): M54.50 - Low back pain, unspecified Plan: Urinalysis negative. NSAIDs or Acetaminophen for pain relief. Ice/Hot Rest. RTC if symptoms not improved. Orders: Orders 2 AMB Urinalysis Automated Today Z13.9 - Encounter for screening, unspecified Coding Level of Care Code Est Pt Level 4 (86649) Diagnoses Acute right-sided low back pain without sciatica M54.50 Back pain location: low back pain Chronicity: acute Sciatica presence: without sciatica Time Spent (min) 20
--- OUTSIDE RECORDS SUMMARY | 2024-08-09 13:12 | XMS_ITS | Encounter Summary ---
Author Organization [employer] Address [address] [place] [address] [address] [place] [address] Care Team Providers Care Audio Visual Facilities Engineer Name Role Phone Unavailable Primary Care Provider Unavailabl e Reason for Visit * Reason Onset Date Comments rs appt from 12/16/2023 Encounter Details Date Type Department Care Team ([facility] st Contact Info) Description 12/16/2023 Telephone [facility] [address] [place] [address] George Quiroz DDS [address] [place] [address] rs appt from April Social History Tobacco [...]
== END 2024-08-09 12:35 | disposition home or self-care (01) ==
PROVIDERS: PCP Internal Medicine; Visit Provider Nurse Practitioner Family
DX: Z13.9 Encounter for screening, unspecified (principal); M54.50 Low back pain, unspecified

== ENCOUNTER → 2024-08-09 11:38 | Outpatient (BNVA) | payer OTHER, SELFPAY | PROVIDERS: PCP Internal Medicine; Visit Provider Nurse Practitioner Family | DX: M54.50 Low back pain, unspecified (principal) | CPT/HCPCS: 81003; 99212 ==

== ENCOUNTER 2024-10-05 08:05 | Outpatient (AMB) | payer OTHER, SELFPAY ==
--- OUTSIDE RECORDS SUMMARY | 2024-09-30 14:00 | XMS_ITS | Encounter Summary ---
Author Organization [employer] Address [address] [place] [address] [address] [place] [address] Care Team Providers Care Adon Name Role Phone Unavailable Primary Care Provider Unavailabl e Reason for Visit * Reason Comments [place] Encounter Details Date Type Department Care Team (Late st Contact Info) Description 09/30/2024 2:00 PM EDT Office Visit [facility] ADULT DENTAL [address] [place] [address] Dilia Paulson DDS [address] [place] [address] Dental caries (Primary Dx); Need for full coverage dental crown Social History Tobacco Use Types Packs/Day Years Used Date Smoking Tobacco: Never Smokeless Tobacco: Never Alcohol Use Standard Drinks/Week Comments Defer 0 (1 standard drink = 0.6 oz pur e alcohol) Comments Unknown Sex and Gender Information Value Date Recorded Sex Assigned at Female 08/26/2022 8:40 AM EDT Legal Sex Female 8:36 AM EDT Gender Identity Female 08/26/2022 8:40 AM EDT Sexual Orientation Choose not to disclose 2022 8:40 AM EDT documented as of this encounter Last Filed Vital Signs Vital Sign Reading Time Taken Comments Blood Pressure 130/90 09/30/2024 1:59 PM EDT Pulse - - Temperature - - Respiratory Rate - - Oxygen Saturation - - Inhaled Oxygen Concentration - - Weight - - Height - - Body Mass Index - - documented in this encounter Progress Notes * Dilia Paulson DDS - 09/30/2024 2:00 PM EDT Patient ID: Phoebe Chapa is a 34 y.o. female. Time Out: Timeout Date: 09/30/24, Timeout Time: 1358 (poc crown prep #3) Location: [facility] Tooth: #3 Procedure: [place] and Post & Core Verified the above with patient, dental laboratory assistant, and provider. Confirmed via patient's chart, intraorally and by radiographs. Tanner Rotary Drum Continuous Process: not applicable Chief Complaint Patient presents with [place] Medical Hx: Vitals: Blood pressure (!) 130/90. Medications, Med Hx reviewed with patient and updated in chart. Consent Obtained: The risks, benefits, indications, potential complications, and alternatives were explained to the patient and informed consent was obtained with good understanding. Treatment Provided: Dental procedures in this visit D2954 - PREFABRICATED POST AND CORE IN ADDITION TO CROWN 3 (Completed) Service provider: Dilia Paulson DDS Billing provider: Dilia Paulson DDS D2700.1 - CROWN PREP (Completed) Service provider: Dilia Paulson DDS Billing provider: Dilia Paulson DDS [id number] - INTRAORAL - PERIAPICAL FIRST RADIOGRAPHIC IMAGE (Completed) Service provider: Dilia Paulson DDS Billing provider: Dilia Paulson DDS [id number] - CASE PRESENTATION, DETAILED AND EXTENSIVE TREATMENT PLANNING (Completed) Service provider: Dilia Paulson DDS Billing provider: Dilia Paulson DDS Topical: 20% Benzocaine Anesthesia: 2% Lidocaine (Xylocaine) w/ 1:100,000 epinephrine Number of Cartridges: 1 Injection Type: Buccal infiltration, Palatal infiltration, Posterior superior alveolar nerve block,and Greater palatine nerve block Confirmed profound anesthesia. Isolation: cotton rolls and high speed suction Temporary anabaptism removed. Canal length: 25 mm David-percha removed using Alegre Danis Post space made: 15 mm Peeso reamer used size: 1-red Post type used: Flexipost Post size used: 1-red PA taken to confirm post size and length. Irrigation: Chlorhexidine Post space dried using paper points. Etch: 37% Phosphoric Acid Etch Laurent: I-Laurent Post cemented with: Relyx Unicem Core: Filtek [place] Flowable Composite PA taken to confirm fit. Occlusion checked with articulating paper and adjustments made as needed. Core smoothed and polished. [place] Preparation: Prepared tooth for: Ceramic crown Gingival Retraction: Traxodent and Retraction cap Final Impression taken with: Paradigm Heavy & Light Body Bite Registration taken with: BluPrint VPS and Triple tray Provisional fabricated with: Paradigm Temp Material and cemented with: TempBond Shade: A3 Lab used: [facility] Due Date: 10/13/2024 POI given to patient with instructions for homecare, to avoid sticky or crunchy foods, and to call if temp crown becomes dislodged. All questions answered. Patient tolerated procedure well, and was discharged alert, oriented, and in stable condition. NV: [place] delivery man: Dennise Inman and ESTELA Lizama Dentist: Dilia Paulson DDS documented in this encounter Plan of Treatment Upcoming Encounters Date Type Department Care Team (Late st Contact Info) Description 10/14/2024 8:30 AM EDT Office Visit [facility] ADULT DENTAL [address] [place] [address] Dilia Paulson DDS [address] [place] [address] Scheduled Orders Name Type Priority Associated Diagnoses Orde r Schedule DENTAL LAB FIXED Dental Routine Ordered: 09/30/2024 documented as of this encounter Procedures Procedure Name Priority Date/Time Associated Diagnosis Comments CROWN PREP Routine 09/30/2024 2:00 PM EDT Dental caries Need for full coverage dental crown 3 PREFABRICATED POST AND CORE IN ADDITION TO CROWN Routine 09/30/2024 2:00 PM EDT Dental caries Need for full coverage dental crown INTRAORAL - PERIAPICAL FIRST RADIOGRAPHIC IMAGE Routine 09/30/2024 2:00 PM EDT Dental caries Need for full coverage dental crown CASE PRESENTATION, DETAILED AND EXTENSIVE TREATMENT PLANNING Routine 09/30/2024 2:00 PM EDT Dental caries Need for full coverage dental crown documented in this encounter Visit Diagnoses Diagnosis Dental caries- Primary Unspecified dental caries Need for full coverage dental crown documented in this encounter
[2024-10-05 08:18] VITALS: BP 138/84; PULSE 95; O2SAT 96; BMI 58.9
--- NOTE | 2024-10-05 08:18 | A.OFFVIS_ITS ---
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 The patient discontinued amitriptyline, previously used for migraines and pain, due to undesirable side effects. Persistent headaches manifest as pressure, exacerbated pre-menstrually, previously addressed with propranolol and sumatriptan. Accompanied by: Mother Allergies amoxicillin (Amoxicillin) Allergy (Unknown, Verified 10/05/24 08:21) rash walnut Allergy (Unknown, Verified 10/05/24 08:21) throat itching Medication List - Last Reconciled 10/05/24 by GM Mcneill albuterol sulfate 90 mcg/actuation (Ventolin HFA) 1 inh inhalation QID PRN 30 days alcohol swabs (Alcohol Wipes) 1 pad topical TID aripiprazole 5 mg PO DAILY blood sugar diagnostic (FreeStyle Lite Strips) Check blood sugar three times daily before meals blood-glucose meter (FreeStyle Lite Meter kit) Check blood sugar three times daily before meals bupropion HCl XL 300 mg PO QAM 90 days dulaglutide (Trulicity) 0.75 mg (0.5 mL) subcut QWEEK duloxetine (Cymbalta) 60 mg PO DAILY 90 days fluticasone propion-salmeterol 100-50 mcg/dose (Advair Diskus) 1 inh inhalation BID 30 days hydrochlorothiazide 25 mg PO DAILY lancets (FreeStyle Lancets) Test blood sugar 3 times per day levothyroxine 50 mcg PO DAILY lorazepam 0.5 mg PO DAILY PRN 30 days losartan 50 mg PO DAILY 90 days HPI Comments Details: History of Present Illness The patient is a 34-year-old female presenting with headaches for neurological consultation. ?She is accompanied by her mother, Noreen. Patient reports the goal of today's visit is that she is looking for help to ?get rid of these headaches?. She reports a long history of headaches since her teenage years, which initially were associated with her menstrual cycle. In her 20s, she began experiencing migraines. She was diagnosed with idiopathic intracranial hypertension (IIH) five to six years ago by her eye doctor, with symptoms of increased retro- orbital pressure and episodes of severe headaches located behind the left eye. ?Patient reports her treatment included a lumbar puncture, but follow-up was not consistent. ?Since she has had headaches that have waxed and waned over the years. Recently, since early this year, her headaches have become more frequent and severe, occurring almost every day and causing a significant impact on daily functioning. They are characterized by left frontal pressure and throbbing pain associated with left eye swelling, blurry vision of the left eye, photophobia, nausea, fatigue, dizziness, and, upon occasion, ringing in the ears during the headache episodes. Activity and bending worsen the symptoms. Patient denies pulsatile tinnitus or headache exacerbated or triggered by supine position. She denies weight gain, but rather reports a recent weight loss associated with decreased appetite.. Patient states she is scheduled for an eye exam in November.? Her last eye exam was a few years ago.? She last saw Neurology at least 3 years ago. Surgical History: - Lumbar Puncture (for IIH five to six years ago) Medications: - Ibuprofen, [id number], for headache relief Review of Systems - Neurological: Reports headaches, blurred vision associated with headaches, dizziness, and spinning sensation. - Psych: Reports Anxiety and mood fluctuations consistent with Bipolar Disorder Type I, social anxiety disorder, with a tendency to not leave the home. - Cardiovascular: Reports hypertension, episodes of chest pain. - Respiratory: Reports history of asthma. - Endocrine: Reports diabetes, thyroid issues. - Gastrointestinal: Reports GERD, IBS- Diarrhea predominant, and anemia. - Musculoskeletal: Reports fibromyalgia; leg cramps. - Hematological: Reports anemia. - Genitourinary: Reports no specific genitourinary symptoms except relationship to menstrual cycle and symptoms. - Sleep: history of ISELA- did not tolerate CPAP. Insomnia with trouble maintaining sleep, variable sleep patterns. - ENT: Reports ringing tinnitus associated with headaches. Pertinent denials: Denies known head injury, kidney stones, seizures, syncope, HLD, or blood clots. Past Medical History Reviewed PMH in chart, as well as: - Migraine headaches - Idiopathic Intracranial Hypertension - Bipolar Disorder Type I - Sleep Apnea - Hypertension - Diabetes Mellitus - Asthma - Fibromyalgia - Anemia - Hypothyroidism - Restless Legs Syndrome - Gastroesophageal Reflux Disease - Irritable Bowel Syndrome - Social Anxiety Disorder Family History - Headaches and migraines in mother and sister - Brain tumor in sister (paternal half-sister) Headache Review Headache questionnaire: Age/time of onset: menstrual headaches in adolescence, then migraine in her early 20s, then 5-6 years ago was dx'd w/ IIH dx'd by her eye doctor and had f/u LP- but denies other tx, last eye exam was 2 yrs ago. Since then, the headaches have been on and off, but worse in the last year w/o a known precipitating cause. Preceding causes: No known initial causes Previous work-up: Remote history of head imaging and LP- unfortunately, results not available Last eye exam was a few years ago. Types of headache disorders: Chronic migraine with a history of known idiopathic intracranial hypertension- status not currently known Typical headache characteristics: Prodrome symptoms: Nausea Aura: Left eye blurry vision and sees sparkles during the headache. Pain intensity: severe Location, quality, characteristics: left frontal, left retrobulbar pressure, and throbbing headache Associated symptoms: left eye red/swollen, whole face redness, photophobia, bilateral ear ringing (sometimes w/o headache), allodynia, nausea, spinning dizziness, not right in space dizziness, feeling of being pushed dizziness, fatigue, cognitive difficulties, activity intolerance. Aggravating factors: bending over Postdrome: lingers Triggers: poor sleep- chronic, picking up a heavier object Time of day: No specific time of day Duration and Frequency: Almost every day How does a headache impact your life? Sometimes cannot even get out of bed. Current acute medication use/interventions: Ibuprofen 400mg- ineffective Current preventative medication use: None Current non-pharmacological interventions: Rest Headache Lifestyle Factors Social History - Family support: Patient engages responsibly with family, mother's involvement noted as emotional support. - Housing: Stable home environment with recent relocation. - Dietary behavior: Minimal discussion on structured meals, weight loss observed. - No current employment due to health conditions. - Lack of physical exercise; general inactivity. Nutrition The patient's dietary intake consists of minimal structured meals, leading to unintentional weight loss of 10 pounds recently. She reports a decrease in appetite, with soda consumption limited to occasional uses depending on availability. issues include obesity, with noted recent non-intentional loss of appetite. Exercise The patient reports no engagement in structured exercise activities. There are no recreational activities other than generalized inactive hobbies, including coloring and watching movies. Functional limitations are possibly due to the chronic headaches and associated fatigue symptoms. Sleep - Bedtime typically around 11:00 PM, with a prolonged sleep onset. - Frequent awakenings with final arousal around 7:00 AM, primarily for morning routines, often returning to sleep inconsistently after this time. - Sleep deprivation over days noted, inconsistent quality and quantity. - Difficulty in traditional sleep environment despite attempts at regular sleep routine. - Endorses snoring, history of sleep apnea though did not tolerate CPAP due to anxiety, fatigue, some restless leg symptoms. - Jaroso sleepiness scale: 10 Substance Use History - Denies use of alcohol, tobacco, or illicit drugs. [facility] Medical History Right-sided back pain H/O bipolar disorder Suicidal thoughts Irritable bowel syndrome Fibromyalgia Diabetes Insomnia Leukocytosis Thrombocytosis Acute anxiety Depression Anemia HTN (hypertension) Asthma Surgical History History of esophagogastroduodenoscopy (EGD) History of laparoscopic cholecystectomy Family History Sister Brain tumor Maternal Uncle Throat cancer Paternal Grandmother Leukemia Mother Fibromyalgia Maternal Grandmother Cancer of kidney Brother No problems noted. Brother No problems noted. Other Mental health disorder Substance use disorder Social History Household Members: Family Housing: Apartment Are you a primary managed care specialist to a significant other at home: No Do you presently have visiting nurse or other home services: No Alcohol intake: never Patient Tobacco Use Status: Never used Tobacco e-Cigarette/Vaping Use: Never Used Current occupational status: unemployed Sexual orientation: Straight/Heterosexual Gender identity: Female Cognitive needs: No Hearing needs: No Vision needs: No Physical Exam Vital Signs: Last Vital Signs Pulse 95 10/05/24 08:18 BP 138/84 10/05/24 08:18 Pulse Ox 96 10/05/24 08:18 Oxygen Delivery Method Room Air 10/05/24 08:18 BMI result Body Mass Index 58.9 Const Orientation/consciousness: patient oriented x3 Resp Effort & Inspection: normal respiratory effort and able to speak in complete sentences Neuro Other: No palpable scalp tenderness. Mallampati stage 3 Good cervical range of motion Negative bilateral Spurling exam General: patient oriented x3 Cranial nerves: Yes CN's II-XII intact bilaterally Cognition (Neuro): normal cognition Gait exam (Neuro): Normal gait present Motor exam (neuro): 5/5 motor strength present throughout Deep tendon reflexes (DTR's): Right triceps reflex intensity grade: 2+, Left triceps reflex intensity grade: 2+, Rt Biceps (C5, C6): 2+, Left biceps reflex intensity grade: 2+, Right brachioradialis reflex intensity grade: 2+, Left brachioradialis reflex intensity grade: 2+, Right patellar reflex intensity grade: 2+ and Left patellar reflex intensity grade: 1+ Coordination: [id number] test normal, tandem gait normal and Romberg test negative Pupils: Normal pupillary reactivity/response: bilateral Psych Appearance: grossly normal Mental Status: mental status grossly normal Speech and movement: Normal speech and movement present Affect: normal affect Attitude: cooperative Thought process: Normal thought process present Assessment & Plan Assessment & Plan (1) Worsening headaches: Code(s): R51.9 - Headache, unspecified Category: Medical (2) IIH (idiopathic intracranial hypertension): Code(s): G93.2 - Benign intracranial hypertension Category: Medical (3) Blurry vision: Code(s): H53.8 - Other visual disturbances Category: Medical (4) Sleep difficulties: Code(s): G47.9 - Sleep disorder, unspecified Category: Medical (5) Snoring: Code(s): R06.83 - Snoring Category: Medical (6) ISELA (obstructive sleep apnea): Code(s): G47.33 - Obstructive sleep apnea (adult) (pediatric) Category: Medical (7) Chronic migraine without aura: Comment: Unclear if blurry vision and seeing sparkles is related to migraine versus other headache processes, such as possible IIH recurrence Code(s): G43.709 - Chronic migraine without aura, not intractable, without status migrain osus Category: Medical Qualifiers: Status migrainosus presence: without status migrainosus Intractability: not intractable Qualified Code(s): G43.709 - Chronic migraine without aura, not intractable, without status migrainosus Plan You are advised to undergo: Brain MRI with and without contrast Ophthalmology evaluation including assessment for papilledema, peripheral vision deficits In-lab sleep study to assess for sleep apnea status, as well as periodic limb movement of sleep Patient also advised to discuss her RLS symptoms 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 Future considerations: LP for opening pressure upon review of MRI and ophthalmology consult, brain MRA/MRV, lab workup. For overall headache management: * Optimize good self-care, including but not limited to maintaining a healthy diet, adequate fluid intake, adequate sleep, and engaging in regular physical activity. * Track headaches and both positive and negative effects of your headache treatment trials, especially after any treatment regimen changes. * Migraine [employer] is one of many headache tracking apps. * A simple paper calendar is also a good option. * Non-pharmacological interventions which may help to alleviate your headache attack frequency, severity, and associated symptoms: * For light sensitivity: You may benefit from trying blue light filtering glasses, FL-41 blue light filter in glasses, green glasses, green light therapy. Avoid wearing traditional sunglasses inside. * For sound sensitivity: You may benefit from trying noise cancellation ear plugs. * Neuromodulation devices, which can be used alone or with pharmacological treatment. * Continue psychological counseling as scheduled * Reestablish care with psychiatry when able For acute (as needed) headache treatment: It is important to take acute medications at the first sign of headache. However, please be aware that frequently using most acute medications may increase the frequency of your headache attacks, as well as make your other treatments less effective.. Trial Ubrogepant (Ubrelvy) 100mg tab: * Take Ubrogepant 1/2 - 1 tab (50-100mg) at onset of headache. * You may repeat the dose in 2 hours. Max of 2 tabs (200mg) per 24 hours. * You may take Ubrogepant with OTC Tylenol 650mg q 4 hours, Ibuprofen (liquid gel) 600mg q 6 hours, or Naproxen (liquid gel) 440mg q 12 hrs as needed. * Do not take Ubrogepant with or within 5 days of taking Butalbital (Fioricet or Fiorinal). * Possible adverse effects of Ubrogepant include, but are not limited to, fatigue, nausea, dry mouth, constipation. * This medication likely will require an insurance prior authorization before you will be able to receive this from your pharmacy. ? * We will initiate the prior authorization process per your specific health insurance's requirements. ? * However, please note, that your health insurance belongs to you, and you may also need to communicate with your insurance company in order for the prior authorization request to be processed. ?it is possible that you will also need to speak to your insurance regarding requesting the prior authorization Previous acute migraine medication trials: Sumatriptan tabs- caused nause Acute migraine medication contraindications: All triptans and DHE due to poorly controlled hypertension. For headache prevention medication: Preventative medications should be taken routinely as prescribed for best effect, it may take several weeks for full effect to take effect. Start Riboflavin 400mg daily in the morning * This is generally well tolerated, however some people may experience mild abdominal discomfort from use. * This will cause your urine to become bright yellow or orange, which is expected and not of any concern. Trial Topiramate IR 25 mg daily at bedtime times 1 week, and if well tolerated increase to 2 tabs daily at bedtime. * Potential adverse effects of Topiramate, include but are not limited to fatigue, cognitive changes, paresthesias (tingling), vision changes, kidney stones. Previous migraine prevention medication trials: Amitriptyline- caused nocturnal headaches. Migraine prevention medication contraindications: Magnesium due to IBS-diarrhea predominant. Amitriptyline, TCAs, antidepressants-as patient has bipolar type 1 and is not currently on an opposing mood stabilizer. Beta-blockers due to symp tomatic asthma diagnosis. Case discussed with Dr Chen Moss. We will follow-up upon review of above and with a follow-up via tele video in 6 weeks and clinic visit in 6 months or sooner as needed. Orders: Orders MR head/brain wo/w con Today G93.2 - Benign intracranial hypertension, H53.8 - Other visual disturbances, R42 - Dizziness and giddiness, R51.9 - Headache, unspecified RT PSG in-lab sleep study Today E66.01 - Morbid (severe) obesity due to excess calories, G47.33 - Obstructive sleep apnea (adult) (pediatric), G47.9 - Sleep disorder, unspecified, R06.83 - Snoring Referrals Ophthalmology Referral G93.2 - Benign intracranial hypertension, H53.8 - Other visual disturbances, R51.9 - Headache, unspecified Medications: New topiramate One tab daily at bedtime x1 week, and if well tolerated increase to 2 tabs daily at bedtime orally bedtime; 60 tabs 3RF 30 days riboflavin (vitamin B2) 400 mg PO DAILY 30 tabs 6RF 30 days ubrogepant (Ubrelvy) take at onset of migraine, may repeat in 2hrs (may take w/ Tylenol) 50 - 100 mg (0.5 - 1 x 100 mg) PO ONCE PRN 16 tabs 3RF migraine headache 30 days Coding Level of Care Code New Pt Level 4 (04826) Diagnoses Worsening headaches R51.9 IIH (idiopathic intracranial hypertension) G93.2 Blurry vision H53.8 Sleep difficulties G47.9 Snoring R06.83 ISELA (obstructive sleep apnea) G47.33 Chronic migraine without aura without status migrainosus, not intractable G43.709 Status migrainosus presence: without status migrainosus Intractability: not intractable
== END 2024-10-05 09:54 | disposition home or self-care (01) ==
LOC: HO.HSMS 08:06
PROVIDERS: PCP Internal Medicine; Visit Provider Nurse Practitioner Family
DX: R51.9 Headache, unspecified (principal); G93.2 Benign intracranial hypertension; H53.8 Other visual disturbances; G47.9 Sleep disorder, unspecified; R06.83 Snoring; G47.33 Obstructive sleep apnea (adult) (pediatric); G43.709 Chronic migraine without aura, not intractable, without status migrainosus
CPT/HCPCS: 99204

== ENCOUNTER → 2024-10-05 08:05 | Outpatient (BNVA) | payer OTHER, SELFPAY | PROVIDERS: PCP Internal Medicine; Visit Provider Nurse Practitioner Family | DX: G47.33 Obstructive sleep apnea (adult) (pediatric) (principal); G47.9 Sleep disorder, unspecified; R06.83 Snoring; E66.01 Morbid (severe) obesity due to excess calories; G43.709 Chronic migraine without aura, not intractable, without status migrainosus; G93.2 Benign intracranial hypertension; H53.8 Other visual disturbances; R42 Dizziness and giddiness; Z68.43 Body mass index [BMI] 50.0-59.9, adult | CPT/HCPCS: 99202 ==

== ENCOUNTER 2024-10-12 13:32 | Outpatient (AMB) | payer OTHER, SELFPAY ==
[2024-10-12 13:36] VITALS: BP 142/80; PULSE 92; O2SAT 97; BMI 58.2
--- NOTE | 2024-10-12 13:36 | A.OFFPC_ITS ---
Vital Signs 10/12/24 13:36 Height 5 ft 5 in Weight 350 lb BMI 58.2 BP 142/80 H Blood Pressure Location Lt brachial Position Sitting Pulse 92 Pulse Source Pulse Oximeter Pulse Oximetry (%) 97 Intake Visit Reasons: Annual- A1C needed Allergies amoxicillin (Amoxicillin) Allergy (Unknown, Verified 10/12/24 13:36) rash walnut Allergy (Unknown, Verified 10/12/24 13:36) throat itching Medication List - Last Reconciled 10/12/24 by Devyn Power MD albuterol sulfate 90 mcg/actuation (Ventolin HFA) 1 inh inhalation QID PRN 30 days alcohol swabs (Alcohol Wipes) 1 pad topical TID aripiprazole 5 mg PO DAILY blood sugar diagnostic (FreeStyle Lite Strips) Check blood sugar three times daily before meals blood-glucose meter (FreeStyle Lite Meter kit) Check blood sugar three times daily before meals bupropion HCl XL 300 mg PO QAM 90 days dulaglutide (Trulicity) 0.75 mg (0.5 mL) subcut QWEEK duloxetine (Cymbalta) 60 mg PO DAILY 90 days fluticasone propion-salmeterol 100-50 mcg/dose (Advair Diskus) 1 inh inhalation BID 30 days hydrochlorothiazide 25 mg PO DAILY lancets (FreeStyle Lancets) Test blood sugar 3 times per day levothyroxine 50 mcg PO DAILY lorazepam 0.5 mg PO DAILY PRN 30 days losartan 50 mg PO DAILY 90 days riboflavin (vitamin B2) 400 mg PO DAILY 30 days topiramate One tab daily at bedtime x1 week, and if well tolerated increase to 2 tabs daily at bedtime orally bedtime; 30 days ubrogepant (Ubrelvy) 50 - 100 mg (0.5 - 1 x 100 mg) PO ONCE PRN 30 days Tobacco use date assessed: 05/26/24 Dental Screening Dental Screen Date: 05/26/24 HPI Annual- A1C needed HPI Details History of Present Illness The patient is a 34-year-old female presenting for Physical Exam . Essential Hypertension: - Blood pressure at today's visit [facility] ed at 142/80 mmHg. - Blood pressure was previously recorded at 138/84 mmHg on October 05. - Patient reports fluctuations in blood pressure levels without home monitoring. Bipolar Disorder: - The patient reports not having taken b ipolar medication for the past three months due to lack of a prescriber. Generalized Anxiety Disorder: - The patient describes having significa nt anxiety contributing to blood pressure fluctuations. - Anxiety medication was also not refill ed for the past three months. Major Depressive Disorder: - Reports of untreated depression, furth er managed through bi-weekly therapy sessions. - Symptoms have been somewhat controlled through ongoing therapy. Migraine: - Neurology appointment conducted last w ; migraines were discussed. - The patient was prescribed Ubrogepant and Topamax. - An MRI is scheduled to evaluate potent ial causes. Type 2 Diabetes Mellitus: - A1c reported as 9.7% in May, [facility] ed to 10% recently. 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 - Concerns over weight and diabetes [facility] expressed, with interest in weight management programs. Morbid Obesity: - Current weight of 350 lbs, down from 3 56 lbs in May. - The patient expressed interest in weig ht loss medications and endocrinology referrals. Previous pituitary tumor: - Recent neurology evaluations to rule o ut tumor recurrence. Anemia: - Slight anemia noted in May with hemo globin levels at 11.9 g/dL. Medical History: - Bipolar Disorder - Generalized Anxiety Disorder - Major Depressive Disorder - Type 2 Diabetes Mellitus - Morbid Obesity - Previous pituitary tumor - Anemia Surgical History: - Mirena insertion Social History: - The patient has recently undergone sig nificant life stress due to moving. - Engages in bi-weekly therapy sessions for mental health management. - No employment details discussed. - Encountered significant pain during mo . Health Maintenance - Patient is experiencing a significant increase in A1c levels. - Recent neurologic evaluations and MRI scheduled due to prior pituitary tumor concerns. - Referral to [employer] for diabet es and weight management is advised. - Regular monitoring of blood pressure a nd glucose levels is encouraged. - due for Obgyn visit Medications - Abilify 5 mg (Bipolar Disorder) - Wellbutrin 300 mg (Major Depressive Di sorder) - Cymbalta 60 mg (Major Depressive Disor lainey) - Trulicity 0.75 mg (Type 2 Diabetes Mickie litus) - Ubrogepant (Migraine) - Topamax (Migraine) - Lorazepam 0.5 mg (Generalized Anxiety Disorder) - Losartan 50 mg (Essential Hypertension ) - Hydrochlorothiazide (Hypertension) - Levothyroxine 50 mcg (Thyroid Disorder ) - Inhaler (Respiratory Condition) Diagnostic results - Laboratories conducted in May show s light anemia (hemoglobin 11.9 g/dL). - Blood pressure noted to fluctuate. - A1c 9.7%, recently increased t o 10%. - Liver enzymes stable. - Normal thyroid levels. - MRI scheduled. Patient Instructions - Monitor blood pressure regularly at [facility]. - Bring sugar logs to the next appointme nt. - Schedule and attend MRI and sleep stud y appointments. - Consider scheduling an endocrinology a ppointment for diabetes management. - Regularly attend therapy sessions. - Return for lorazepam refill next month , ensuring compliance with current medication regimen. - Follow advised dosage changes in medic ations, including Trulicity increase. Review of Systems - General: No fever no chills - Ear nose throat: No sore throat no hearing difficulty no ear pain - Cardiovascular: No syncope, no chest pain, no palpitations - Gastrointestinal: No nausea vomiting or diarrhea - Endocrine: No polyuria polydipsia no heat intolerance - Genitourinary: No dysuria - Skin: No new complaints Physical Exam General: Cooperative, healthy appearing, comfortable, no acute distress Orientation: Patient oriented x3 Head: Normal to inspection Ears: Within normal limit visually Nose: Normal external nose present Face and sinus: Normal facial exam Eyes: Appearance normal, extraocular movement intact pupils reactive Neck: Normal visual inspection and supple Respiratory: Normal respiratory effort and able to speak in complete sentences. Clear to auscultation, no stridor Cardiovascular: S1 and S2 RRR GI: Normal to inspection. Soft to palpation and nontender Breast exam declined Skin: Turgor normal, no acute findings Neuro: Patient oriented x3, motor sensory intact, balance intact, tandem pass Extremities: Normal to inspection [facility] Medical History Right-sided back pain H/O bipolar disorder Suicidal thoughts Irritable bowel syndrome Fibromyalgia Diabetes Insomnia Leukocytosis Thrombocytosis Acute anxiety Depression Anemia HTN (hypertension) Asthma Surgical History History of esophagogastroduodenoscopy (EGD) History of laparoscopic cholecystectomy Family History Sister Brain tumor Maternal Uncle Throat cancer Paternal Grandmother Leukemia Mother Fibromyalgia Maternal Grandmother Cancer of kidney Brother No problems noted. Brother No problems noted. Other Mental health disorder Substance use disorder Social History Household Members: Family Housing: Apartment Are you a primary nursing care partner to a significant other at home: No Do you presently have visiting nurse or other home services: No Alcohol intake: never Patient Tobacco Use Status: Never used Tobacco e-Cigarette/Vaping Use: Never Used Current occupational status: unemployed Sexual orientation: Straight/Heterosexual Gender identity: Female Cognitive needs: No Hearing needs: No Vision needs: No Questionnaire Thrive Questionnaire Date Thrive assessed: 05/26/24 I am a: Patient What is your living situation today?: I have a steady place to live Within the past 12 months, did the food you bought not last and you didn't have the money to get more?: Sometimes True Within the past 12 months, did you worry whether your food would run out before you got money to buy more?: Sometimes True Do you have trouble paying for medicines?: No Do you have trouble getting transportation to medical appointments?: No Do you have trouble paying your heating and electricity bill?: No Do you have trouble taking care of your child, family member or friend?: I choose not to answer this question Do you have trouble with day-to-day activities such as bathing, preparing meals, shopping, managing finances, etc.?: I choose not to answer this question Are you currently unemployed and looking for a job?: I choose not to answer this question Are you interested in more education?: I choose not to answer this question Please select the resources that you would like help with: None Currently or been in a relationship where the following occur: I choose not to answer THRIVE Score: 2 AUDIT C Alcohol Use Questionnaire (AUDIT-C) 1. How often do you have a drink containing alcohol?: Never 2. How many drinks containing alcohol do you have on a typical day when you are drinking?: 1 or 2 3. How often do you have six or more drinks on one occasion?: Never Total Score: 0 Score Reviewed/Action Taken: Yes RAJIV-7 AMB Questionnaire RAJIV-7 Date RAJIV - 7 assessed: 10/12/24 Feeling nervous, anxious, or on edge: 1 = Several days Not being able to stop or control worryin = More than half the days Worrying too much about different things: 2 = More than half the days Trouble relaxin = More than half the days Being so restless that it is hard to sit still: 2 = More than half the days Becoming easily annoyed or irritable: 2 = More than half the days Feeling afraid as if something awful might happen: 3 = Nearly every day Total RAJIV-7 score (0-4 normal; 5-9 mild; 10-14 moderate; 15-21 severe): 14 Source: Developed by Drs. Bogdan Ann, Karyn Joe, Miko Thomas and colleagues, with an educational krystyna from [employer]. RAJIV-7 Assessment Billing RAJIV-7 Assessment Tool: RAJIV-7 Assessment 16214 Physical exam (Primary Care) Vital Signs: Last Vital Signs Pulse 92 10/12/24 13:36 BP 142/80 H 10/12/24 13:36 Pulse Ox 97 10/12/24 13:36 BMI result Body Mass Index 58.2 Tobacco/Smoking Status: Tobacco use Status Tobacco use date assessed 05/26/24 10/12/24 13:42 Patient Tobacco Use Status Never used Tobacco 10/12/24 13:42 e-Cigarette/Vaping Use Never Used 10/12/24 13:42 Thrive Assessment: Date of Thrive Assessment Date Thrive assessed 05/26/24 10/12/24 13:42 Currently or been in a relationship where the following occur: I choose not to answer Results AMB Hemoglobin A1c AMB Hemoglobin A1c 10 % Last Edit by Dez Jameson CMA on 10/12/24 14:1 9 Results Reviewed Results Reviewed: Laboratory Last Values Hgb A1c (Clinic) 10 % (4.0-6.0) H 10/12/24 14:18 Coding Level of Care Code Est Pt Level 4 (90348) Est Pt Prev Care 18-39y(37437) Diagnoses Uncontrolled type 2 diabetes mellitus with hyperglycemia E11.65 Diabetes mellitus type: type 2 Glycemic state: with hyperglycemia Encounter for general adult medical examination with abnormal findings Z00.01 Other specified hypothyroidism E03.8 Fibromyalgia M79.7 Chronic migraine without aura without status migrainosus, not intractable G43.709 Intractability: not intractable Status migrainosus presence: without status migrainosus Moderate persistent asthma without complication J45.40 Asthma complication type: uncomplicated Asthma persistence: persistent Morbid obesity E66.01 Irritable bowel syndrome with diarrhea K58.0 Irritable bowel syndrome type: with diarrhea Hypertension, essential I10 Major depressive disorder, severe F32.2 Anxiety, generalized F41.1 Bipolar 1 disorder F31.9 Iron deficiency anemia due to chronic blood loss D50.0 Iron deficiency anemia type: chronic blood loss PTSD (post-traumatic stress disorder) F43.10 Panic anxiety syndrome F41.0 Additional Codes RAJIV-7 Assessment Billing - RAJIV-7 Assessment Tool: RAJIV-7 Assessment 33869 ([id number]) Assessment & Plan Assessment & Plan (1) Uncontrolled diabetes mellitus: Category: Medical Qualifiers: Diabetes mellitus type: type 2 Glycemic state: with hyperglycemia Qualified Code(s): E11.65 - Type 2 diabetes mellitus with hyperglycemia (2) Encounter for general adult medical examination with abnormal findings: Code(s): Z00.01 - Encounter for general adult medical examination with abnormal findings Category: Medical (3) Other specified hypothyroidism: Code(s): E03.8 - Other specified hypothyroidism Category: Medical (4) Fibromyalgia: Code(s): M79.7 - Fibromyalgia Category: Medical (5) Chronic migraine without aura: Comment: Unclear if blurry vision and seeing sparkles is related to migraine versus other headache processes, such as possible IIH recurrence Code(s): G43.709 - Chronic migraine without aura, not intractable, without status migrainosus Category: Medical Qualifiers: Intractability: not intractable Status migrainosus presence: without status migrainosus Qualified Code(s): G43.709 - Chronic migraine without aura, not intractable, without status migrainosus (6) Asthma, moderate: Code(s): J45.909 - Unspecified asthma, uncomplicated Category: Medical Qualifiers: Asthma complication type: uncomplicated Asthma persistence: persistent Qualified Code(s): J45.40 - Moderate persistent asthma, uncomplicated (7) Morbid obesity: Code(s): E66.01 - Morbid (severe) obesity due to excess calories Category: Medical (8) Irritable bowel syndrome: Comment: IBS alternating type-increase fiber-Citrucel 500 mg b.i.d. Code(s): K58.9 - Irritable bowel syndrome, unspecified Category: Medical Qualifiers: Irritable bowel syndrome type: with diarrhea Qualified Code(s): K58.0 - Irritable bowel syndrome with diarrhea (9) Hypertension, essential: Code(s): I10 - Essential (primary) hypertension Category: Medical (10) Major depressive disorder, severe: Code(s): F32.2 - Major depressive disorder, single episode, severe without psychotic features Category: Medical (11) Anxiety, generalized: Code(s): F41.1 - Generalized anxiety disorder Category: Medical (12) Bipolar 1 disorder: Code(s): F31.9 - Bipolar disorder, unspecified Category: Medical (13) Iron deficiency anemia: Code(s): D50.9 - Iron deficiency anemia, unspecified Category: Medical Qualifiers: Iron deficiency anemia type: chronic blood loss Qualified Code(s): D50.0 - Iron deficiency anemia secondary to blood loss (chronic) (14) PTSD (post-traumatic stress disorder): Code(s): F43.10 - Post-traumatic stress disorder, unspecified Category: Medical (15) Panic anxiety syndrome: Code(s): F41.0 - Panic disorder [episodic paroxysmal anxiety] Category: Medical Plan History of Present Illness The patient is a 34-year-old female presenting for Physical Exam . Essential Hypertension: - Blood pressure at today's visit measured at 142/80 mmHg. - Blood pressure was previously recorded at 138/84 mmHg on October 05. - Patient reports fluctuations in blood pressure levels without home monitoring. Bipolar Disorder: - The patient reports not having taken bipolar medication for the past three months due to lack of a prescriber. Generalized Anxiety Disorder: - The patient describes having significant anxiety contributing to blood pressure fluctuations. - Anxiety medication was also not refilled for the past three months. Major Depressive Disorder: - Reports of untreated depression, further managed through bi-weekly therapy sessions. - Symptoms have been somewhat controlled through ongoing therapy. Migraine: - Neurology appointment conducted last week; migraines were discussed. - The patient was prescribed Ubrogepant and Topamax. - An MRI is scheduled to evaluate potential causes. Type 2 Diabetes Mellitus: - A1c reported as 9.7% in May, increased to 10% recently. 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 - Concerns over weight and diabetes management expressed, with interest in weight management programs. Morbid Obesity: - Current weight of 350 lbs, down from 356 lbs in May. - The patient expressed interest in weight loss medications and endocrinology referrals. Previous pituitary tumor: - Recent neurology evaluations to rule out tumor recurrence. Anemia: - Slight anemia noted in May with hemoglobin levels at 11.9 g/dL. Medical History: - Bipolar Disorder - Generalized Anxiety Disorder - Major Depressive Disorder - Type 2 Diabetes Mellitus - Morbid Obesity - Previous pituitary tumor - Anemia Surgical History: - Mirena insertion Social History: - The patient has recently undergone significant life stress due to moving. - Engages in bi-weekly therapy sessions for mental health management. - No employment details discussed. - Encountered significant pain during moving. Health Maintenance - Patient is experiencing a significant increase in A1c levels. - Recent neurologic evaluations and MRI scheduled due to prior pituitary tumor concerns. - Referral to design engineer marine equipment for diabetes and weight management is advised. - Regular monitoring of blood pressure and glucose levels is encouraged. - due for Obgyn visit Medications - Abilify 5 mg (Bipolar Disorder) - Wellbutrin 300 mg (Major Depressive Disorder) - Cymbalta 60 mg (Major Depressive Disorder) - Trulicity 0.75 mg (Type 2 Diabetes Mellitus) - Ubrogepant (Migraine) - Topamax (Migraine) - Lorazepam 0.5 mg (Generalized Anxiety Disorder) - Losartan 50 mg (Essential Hypertension) - Hydrochlorothiazide (Hypertension) - Levothyroxine 50 mcg (Thyroid Disorder) - Inhaler (Respiratory Condition) Diagnostic results - Laboratories conducted in May show slight anemia (hemoglobin 11.9 g/dL). - Blood pressure noted to fluctuate. - May's A1c 9.7%, recently increased to 10%. - Liver enzymes stable. - Normal thyroid levels. - MRI scheduled. Patient Instructions - Monitor blood pressure regularly at home. - Bring sugar logs to the next appointment. - Schedule and attend MRI and sleep study appointments. - Consider scheduling an endocrinology appointment for diabetes management. - Regularly attend therapy sessions. - Return for lorazepam refill next month, ensuring compliance with current medication regimen. - Follow advised dosage changes in medications, including Trulicity increase. Orders: Orders Complete Blood Count Auto Diff Today D50.0 - Iron deficiency anemia secondary to blood loss (chronic), E03.8 - Other specified hypothyroidism, E66.01 - Morbid (severe) obesity due to excess calories, F31.9 - Bipolar disorder, unspecified, F32.2 - Major depressive disorder, single episode, severe without psychotic features, F41.0 - Panic disorder [episodic paroxysmal anxiety], F41.1 - Generalized anxiety disorder, F43.10 - Post-traumatic stress disorder, unspecified, G43.709 - Chronic migraine without aura, not intractable, without status migrainosus, I10 - Essential (primary) hypertension, J45.40 - Moderate persistent asthma, uncomplicated, K58.9 - Irritable bowel syndrome, unspecified, M79.7 - Fibromyalgia, Z00.01 - Encounter for general adult medical examination with abnormal findings Comprehensive [place]. Panel Fast Today D50.0 - Iron deficiency anemia secondary to blood loss (chronic), E03.8 - Other specified hypothyroidism, E66.01 - Morbid (severe) obesity due to excess calories, F31.9 - Bipolar disorder, unspecified, F32.2 - Major depressive disorder, single episode, severe without psychotic features, F41.0 - Panic disorder [episodic paroxysmal anxiety], F41.1 - Generalized anxiety disorder, F43.10 - Post-traumatic stress disorder, unspecified, G43.709 - Chronic migraine without aura, not intractable, without status migrainosus, I10 - Essential (primary) hypertension, J45.40 - Moderate persistent asthma, uncomplicated, K58.9 - Irritable bowel syndrome, unspecified, M79.7 - Fibromyalgia, Z00.01 - Encounter for general adult medical examination with abnormal findings AMB Hemoglobin A1c Today Z13.9 - Encounter for screening, unspecified Lipid Panel Today D50.0 - Iron deficiency anemia secondary to blood loss (chronic), E03.8 - Other specified hypothyroidism, E66.01 - Morbid (severe) obesity due to excess calories, F31.9 - Bipolar disorder, unspecified, F32.2 - Major depressive disorder, single episode, severe without psychotic features, F41.0 - Panic disorder [episodic paroxysmal anxiety], F41.1 - Generalized anxiety disorder, F43.10 - Post-traumatic stress disorder, unspecified, G43.709 - Chronic migraine without aura, not intractable, without status migrainosus, I10 - Essential (primary) hypertension, J45.40 - Moderate persistent asthma, uncomplicated, K58.9 - Irritable bowel syndrome, unspecified, M79.7 - Fibromyalgia, Z00.01 - Encounter for general adult medical examination with abnormal findings TSH reflex Free T4 Today D50.0 - Iron deficiency anemia secondary to blood loss (chronic), E03.8 - Other specified hypothyroidism, E66.01 - Morbid (severe) obesity due to excess calories, F31.9 - Bipolar disorder, unspecified, F32.2 - Major depressive disorder, single episode, severe without psychotic features, F41.0 - Panic disorder [episodic paroxysmal anxiety], F41.1 - Generalized anxiety disorder, F43.10 - Post-traumatic stress disorder, unspecified, G43.709 - Chronic migraine without aura, not intractable, without status migrainosus, I10 - Essential (primary) hypertension, J45.40 - Moderate persistent asthma, uncomplicated, K58.9 - Irritable bowel syndrome, unspecified, M79.7 - Fibromyalgia, Z00.01 - Encounter for general adult medical examination with abnormal findings Microalbumin, Random (w Creat) Today D50.0 - Iron deficiency anemia secondary to blood loss (chronic), E03.8 - Other specified hypothyroidism, E66.01 - Morbid (severe) obesity due to excess calories, F31.9 - Bipolar disorder, unspecified, F32.2 - Major depressive disorder, single episode, severe without psychotic features, F41.0 - Panic disorder [episodic paroxysmal anxiety], F41.1 - Gen eralized anxiety disorder, F43.10 - Post-traumatic stress disorder, unspecified, G43.709 - Chronic migraine without aura, not intractable, without status migrainosus, I10 - Essential (primary) hypertension, J45.40 - Moderate persistent asthma, uncomplicated, K58.9 - Irritable bowel syndrome, unspecified, M79.7 - Fibromyalgia, Z00.01 - Encounter for general adult medical examination with abnormal findings Medications: New aripiprazole 5 mg PO DAILY 30 tabs 0RF Changed From dulaglutide (Trulicity) 0.75 mg (0.5 mL) subcut QWEEK 2 mL 3RF To dulaglutide 3 mg (0.5 mL) subcut QWEEK 6.5 mL 0RF 90 days From duloxetine (Cymbalta) 60 mg PO DAILY 90 days 90 caps 0RF To duloxetine 60 mg PO DAILY 90 caps 0RF 90 days Refilled bupropion HCl XL 300 mg PO QAM 90 tabs 0RF 90 days F32.9 - Major depressive disorder, single episode, unspecified, F41.9 - Anxiety disorder, unspecified lorazepam 0.5 mg PO DAILY PRN 30 tabs 0RF anxiety 30 days
--- OUTSIDE RECORDS SUMMARY | 2024-10-12 14:48 | XMS_ITS | Encounter Summary ---
Author Organization [employer] Address [address] [place] [address] Care Team Providers Care Marketing Project Specialist Name Role Phone Unavailable Primary Care Provider Unavailabl e Reason for Visit * Reason Onset Date Comments rs appt from 12/16/2023 Encounter Details Date Type Department Care Team (Late st Contact Info) Description 12/16/2023 Telephone [facility] [address], [place] [phone] George Quiroz DDS [address], [place] [phone] rs appt from April Social History Tobacco [...] Description 10/14/2024 8:30 AM EDT Office Visit [facility] [address] [place] [address] Dilia Paulson DDS [address] [place] [address] documented as of this encounter Visit Diagnoses Not on filedocumented in this encounter
== END 2024-10-12 14:03 | disposition home or self-care (01) ==
LOC: HO.HMCC 13:33
PROVIDERS: PCP Internal Medicine; Visit Provider Internal Medicine
DX: Z00.01 Encounter for general adult medical examination with abnormal findings (principal); E11.65 Type 2 diabetes mellitus with hyperglycemia; E66.01 Morbid (severe) obesity due to excess calories; Z68.43 Body mass index [BMI] 50.0-59.9, adult; F32.2 Major depressive disorder, single episode, severe without psychotic features; F31.9 Bipolar disorder, unspecified; E03.8 Other specified hypothyroidism; M79.7 Fibromyalgia; G43.709 Chronic migraine without aura, not intractable, without status migrainosus; J45.40 Moderate persistent asthma, uncomplicated; K58.0 Irritable bowel syndrome with diarrhea; I10 Essential (primary) hypertension

== ENCOUNTER → 2024-10-12 13:32 | Outpatient (BNVA) | payer OTHER, SELFPAY | PROVIDERS: PCP Internal Medicine; Visit Provider Internal Medicine | DX: Z00.01 Encounter for general adult medical examination with abnormal findings (principal); I10 Essential (primary) hypertension; F31.9 Bipolar disorder, unspecified; F41.1 Generalized anxiety disorder; G43.909 Migraine, unspecified, not intractable, without status migrainosus; E66.01 Morbid (severe) obesity due to excess calories; E11.65 Type 2 diabetes mellitus with hyperglycemia; E03.8 Other specified hypothyroidism; M79.7 Fibromyalgia; G43.709 Chronic migraine without aura, not intractable, without status migrainosus; J45.40 Moderate persistent asthma, uncomplicated; K58.0 Irritable bowel syndrome with diarrhea; D50.0 Iron deficiency anemia secondary to blood loss (chronic); F43.10 Post-traumatic stress disorder, unspecified; F41.0 Panic disorder [episodic paroxysmal anxiety]; Z68.43 Body mass index [BMI] 50.0-59.9, adult | CPT/HCPCS: 83036; 96127; 99212; 99395 ==

== ENCOUNTER 2024-10-21 14:21 | Outpatient (REF) | payer OTHER, SELFPAY | END 2024-10-21 14:22 | disposition home or self-care (01) | LOC: HO.LAB 14:21 | PROVIDERS: PCP Internal Medicine; Visit Provider Advanced Practice Midwife | DX: N93.9 Abnormal uterine and vaginal bleeding, unspecified (principal); Z32.02 Encounter for pregnancy test, result negative | CPT/HCPCS: 81025; 99212 ==

== ENCOUNTER 2024-10-21 14:21 | Outpatient (AMB) | payer OTHER, SELFPAY ==
[2024-10-21 14:24] VITALS: BP 124/86; BMI 58.2
--- NOTE | 2024-10-21 14:24 | A.OFFVIS_ITS ---
Vital Signs 10/21/24 14:24 Height 5 ft 5 in Weight 350 lb BMI 58.2 BP 124/86 Intake Visit Reasons: irregular menstrual Intake Note: pt c/o menses 2 weeks late, passing large clots and bad cramps with normal flow Radio Sales Account Executive: Radio Sales Account Executive Present (Geeta) Allergies amoxicillin (Amoxicillin) Allergy (Unknown, Verified 10/21/24 14:24) rash walnut Allergy (Unknown, Verified 10/21/24 14:24) throat itching Is last menstrual period known: Yes Last menstrual period: 10/15/24 HPI Comments Details: Patient is here today with concerns that her last menstrual period presented with large clots. History of heavy menses, had canceled her prior EMB and Mirena insertion due to a in the family and struggling with her mental health. UPT is negative. She isn't sexually active in 8 years. Followed by Hematology for her anemia. On [facility]. [facility], [facility] Medical History Right-sided back pain H/O bipolar disorder Suicidal thoughts Irritable bowel syndrome Fibromyalgia Diabetes Insomnia Leukocytosis Thrombocytosis Acute anxiety Depression Anemia HTN (hypertension) Asthma Surgical History History of esophagogastroduodenoscopy (EGD) History of laparoscopic cholecystectomy Family History Sister Brain tumor Maternal Uncle Throat cancer Paternal Grandmother Leukemia Mother Fibromyalgia Maternal Grandmother Cancer of kidney Brother No problems noted. Brother No problems noted. Other Mental health disorder Substance use disorder Social History Household Members: Family Housing: Apartment Are you a primary rn transitional care to a significant other at home: No Do you presently have visiting nurse or other home services: No Alcohol intake: never Patient Tobacco Use Status: Never used Tobacco e-Cigarette/Vaping Use: Never Used Current occupational status: unemployed Sexual orientation: Straight/Heterosexual Gender identity: Female Cognitive needs: No Hearing needs: No Vision needs: No Female Reproductive History Menstrual Date of last menstrual period: 10/15/24 control method: none Total pregnancies: 0 Review of Systems Const All systems reviewed & are unremarkable except as noted in HPI and below Reports as per HPI Eyes Reports no additional complaints ENT Reports no additional complaints Card Reports no additional complaints Resp Reports no additional complaints GI Reports as per HPI and Reports no additional complaints Reports as per HPI Musc Reports no additional complaints Skin/Breast Reports as per HPI Neuro Reports no additional complaints Psych Reports no additional complaints Endo Reports no additional complaints Elpidio/Lymph Reports no additional complaints Aller/Immun Reports no additional complaints Physical Exam Vital Signs: Last Vital Signs BP 124/86 10/21/24 14:24 BMI result Body Mass Index 58.2 Const General: cooperative, healthy appearing, no acute distress, well developed and alert Orientation/consciousness: patient oriented x3 HEENT Head: Yes normal to inspection Eyes General: appearance normal, both eyes and all related structures Neck Neck: Yes normal visual inspection Thyroid: Thyroid normal Chest Chest palpation & inspection: normal inspection of the chest and other (no puckering, dimpling, peau de orange, retraction, discharge, masses) Breast/axilla inspection: normal inspection of the breasts Breast/axilla palpation: normal palpation of the breasts Resp Effort & Inspection: normal respiratory effort GI Inspection: Yes normal to inspection Palpation (GI): Soft to palpation Rectal Exam - Female: deferred General: Yes bladder normal to palpation External Female Exam: normal external appearance and normal appearance of the urethra Speculum Exam - Vagina: normal appearance of the vagina, normal palpation and normal vaginal discharge Speculum Exam - Cervix: normal appearance of the cervix and normal palpation Bimanual exam- vagina & uterus: normal bimanual exam, normal palpation, uterine size normal, bladder normal to palpation, normal palpation and non-tender Bimanual Exam- Adnexa, other: no masses Skin General skin exam: no rashes or lesions noted Rashes: no rashes Neuro General: patient oriented x3 Cognition (Neuro): normal cognition Extrem General: Yes normal to inspection Psych Attitude: cooperative Thought process: Normal thought process present Results AMB Test Urine AMB Test Urine Negative Last Edit by WAGNER Oropeza on 0 10/21/24 14:35 Results Reviewed Results Reviewed: Laboratory Last Values Tst Clinic Negative 10/21/24 14:35 Assessment & Plan Assessment & Plan (1) Abnormal uterine bleeding (AUB): Code(s): N93.9 - Abnormal uterine and vaginal bleeding, unspecified Category: Medical Plan Discuss plan of care to include endometrial biopsy and Mirena IUD insertion same-day procedure. Counseled regarding anticipatory guidance for the procedure and encouraged to take 3 ibuprofen with food and fluids 1 hour before her procedure time. The patient expressed understanding and agreement with the plan of care. All of her questions and concerns were addressed to the best of my ability. This note is constructed using voice recognition software. While every effort has been made to ensure accuracy, wig comber errors may have been included. Orders: Orders AMB HCG Urine Test Today Z32.02 - Encounter for test, result negative Bacterial Vaginosis Panel Today N93.9 - Abnormal uterine and vaginal bleeding, unspecified CT NG by PCR Vag/Cerv Today N93.9 - Abnormal uterine and vaginal bleeding, unspecified Coding Level of Care Code Est Pt Level 3 (74229) Diagnoses Abnormal uterine bleeding (AUB) N93.9
--- OUTSIDE RECORDS SUMMARY | 2024-10-21 15:08 | XMS_ITS | Clinical Summary ---
Author Organization [employer] Address [address] [place] [address] Care Team Providers Care Rangelands Conservation Laborer Name Role Phone Unavailable Primary Care Provider [...] mg by mouth at bedtime. 3 Active acetaminophen (Tylenol 8 Hour) 650 MG ER tablet Take 1 tablet (650 mg) by mouth every 8 (eight) hours if needed for mild pain. Do not crush, chew, or split. 30 tablet 5 Active Active Problems Problem Noted Date Diagnosed Date Pain, dental 08/16/2024 Dental caries into pulp 08/16/2024 Encounters Date Type Department Care Team Description 10/18/2024 Telephone [facility]ULT [facility] [address] [place] [address] Ricci-Dilia Salgado, SUKIS 10/18/2024 Telephone [facility] [address] [place] [address] Ricci-Dilia Salgado, SUKIS 10/14/2024 8:30 AM EDT Office Visit [facility] [address] [place] [address] Radhames-Dilia Salgado DDS Need for full coverage dental crown (Primary Dx) 10/07/2024 Travel 09/30/2024 2:00 PM EDT Office Visit [facility]ULT [facility] [address] [place] [address] Dilia Paulson, NESTOR Dental caries (Primary Dx); Need for full coverage dental crown 08/23/2024 8:00 AM EDT Office Visit [facility] ADULT [facility] [address] [place] [address] Ashley Goyal DDS 08/16/2024 2:15 PM EDT Office Visit [facility]ULT [facility] [address] [place] [address] George Quiroz DDS Dental caries (Primary Dx) 08/16/2024 11:30 AM EDT Office Visit [facility]ULT [facility] [address] [place] [address] Giuseppe Khan, NESTOR Pain, dental (Primary Dx); Dental caries into pulp from Last 3 Months Social History Tobacco Use Types Packs/Day Years Used Date Smoking Tobacco: Never Smokeless Tobacco: Never Tobacco Cessation:Counseling Given: Not Answered Alcohol Use Standard Drinks/Week Comments Defer 0 (1 standard drink = 0.6 oz pur e alcohol) Comments Unknown Sex and Gender Information Value Date Recorded Sex Assigned at Female 08/26/2022 8:40 AM EDT Legal Sex Female 8:36 AM EDT Gender Identity Female 08/26/2022 8:40 AM EDT Sexual Orientation Choose not to disclose 2022 8:40 AM EDT Last Filed Vital Signs Vital Sign Reading Time Taken Comments Blood Pressure 124/78 10/14/2024 8:43 AM EDT Pulse - - Temperature - - Respiratory Rate - - Oxygen Saturation - - Inhaled Oxygen Concentration - - Weight - - Height - - Body Mass Index - - Plan of Treatment Upcoming Encounters Date Type Department Care Team (Late st Contact Info) Description 11/18/2024 1:30 PM EDT Office Visit [facility]ULT [facility] [address] [place], [place] [phone] Dilia Paulson, DDS [address] [place] [address] Health Maintenance Due Date Last Done Comments Dental Oral Exam 1989 Dental Prophylaxis 1989 Depression Screening 1989 HIV Screening 1989 SDOH Screening 1989 Disability Screening 1989 Alcohol/Substance Use Screening 2001 Family Planning (PISQ) 2004 HPV Vaccines (1 - 3-dose series) 2004 Hepatitis C Screening 06/19/2007 DTaP/Tdap/Td Vaccines (1 - Tdap) 2008 Hepatitis B Vaccines (1 of 3 - 19+ 3-dose series) 2008 Pap Smear 2010 Cervical Cancer Screening 06/19/2019 HPV/Cotest 06/19/2019 COVID-19 Vaccine (2023-2 5 season) 2023 02/13/2022, 01/09/2021, 05/07/2020 Influenza Vaccine (#1) 2024 Tobacco Screening 10/14/2025 10/14/2024 Dental X-Ray: Bitewings 10/15/2025 10/15/19, 02/21/2023, 10/02/2022 Dental X-Ray: Full Mouth 08/18/2027 08/16/2024 Zoster Vaccines (1 of 2) 06/19/2039 RSV [...] patient's age to complete this topic Meningococcal B Vaccine Aged Out No l onger eligible based on patient's age to complete this topic Meningococcal Vaccine Aged Out No cathleen zi eligible based on patient's age to complete this topic Pneumococcal Vaccine: Pediatrics (0 to 5 Years) and At-Risk Patients (6 to 49) Years Aged Out No longer eligible b ased on patient's age to complete this topic RSV under 20 months Aged Out No longe r eligible based on patient's age to complete this topic Rotavirus Vaccines Aged Out No longer eligible based on patient's age to complete this topic Procedures Procedure Name Priority Date/Time Associated Diagnosis Comments BITEWING - SINGLE RADIOGRAPHIC IMAGE Routine 10/14/2024 8:30 AM EDT Need for full coverage dental crown INTRAORAL - PERIAPICAL FIRST RADIOGRAPHIC IMAGE Routine 10/14/2024 8:30 AM EDT Need for full coverage dental crown CASE PRESENTATION, DETAILED AND EXTENSIVE TREATMENT PLANNING Routine 10/14/2024 8:30 AM EDT Need for full coverage dental crown INTRAORAL - PERIAPICAL FIRST RADIOGRAPHIC IMAGE Routine 10/14/2024 8:30 AM EDT Need for full coverage dental crown 3 CROWN - PORCELAIN/CERAMIC Routine 10/14/2024 8:30 AM EDT Need for full coverage dental crown CASE PRESENTATION, DETAILED AND EXTENSIVE TREATMENT PLANNING Routine 09/30/2024 2:00 PM EDT Dental caries Need for full coverage dental crown INTRAORAL - PERIAPICAL FIRST RADIOGRAPHIC IMAGE Routine 09/30/2024 2:00 PM EDT Dental caries Need for full coverage dental crown CROWN PREP Routine 09/30/2024 2:00 PM EDT Dental caries Need for full coverage dental crown 3 PREFABRICATED POST AND CORE IN ADDITION TO CROWN Routine 09/30/2024 2:00 PM EDT Dental caries Need for full coverage dental crown 3 ENDODONTIC THERAPY, MOLAR TOOTH Routine 08/23/2024 8:00 AM EDT INTRAORAL - PERIAPICAL FIRST RADIOGRAPHIC IMAGE Routine 08/16/2024 2:15 PM EDT 3 LIMITED ORAL EVALUATION - PROBLEM FOCUSED Routine 08/16/2024 2:15 PM EDT CASE PRESENTATION, DETAILED AND EXTENSIVE TREATMENT PLANNING Routine 08/16/2024 2:15 PM EDT CASE PRESENTATION, DETAILED AND EXTENSIVE TREATMENT PLANNING Routine 08/16/2024 11:30 AM EDT LIMITED ORAL EVALUATION - PROBLEM FOCUSED Routine 08/16/2024 11:30 AM EDT PANORAMIC RADIOGRAPHIC IMAGE Routine 08/16/2024 11:30 AM EDT from Last 3 Months Insurance DENTAL-[facility] MEDICAID STAND ADULT
--- OUTSIDE RECORDS SUMMARY | 2024-10-21 15:08 | XMS_ITS | Encounter Summary ---
Author Organization [employer] Address [address] [place] [address] Care Team Providers Care Desktop Specialist Name Role Phone Unavailable Primary Care Provider Unavailabl e Encounter Details Date Type Department Care Team (Late st Contact Info) Description 08/30/2022 Telephone [facility]ULT [facility] [address] [place] [address] Todd Wade DMD [address] [place] [address] Social History Tobacco Use Types Packs/Day Years [...] Dumont - 08/30/2022 9:57 AM EDT Phoebe Gallego 1990 Patient was seen for emergency visit on 08/26/2022 and stated she is having a lot of pain and was wondering if something can be sent to the pharmacy please advise. documented in this encounter Plan of Treatment Upcoming Encounters Date Type Department Care Team (Late st Contact Info) Description 11/18/2024 1:30 PM EDT Office Visit [facility] [address] [place] [address] Dliia Paulson, SUKIS [address] [place] [address] documented as of this encounter Visit Diagnoses Not on filedocumented in this encounter
--- OUTSIDE RECORDS SUMMARY | 2024-10-21 15:08 | XMS_ITS | Encounter Summary ---
Author Organization [employer] Address [address] [facility] 7t [place] [address] Care Team Providers Care Gasoline Plant Operator Name Role Phone Unavailable Primary Care Provider Unavailabl e Encounter Details Date Type Department Care Team (Late Contact Info) Description 10/18/2024 Telephone [facility] ADULT DENT[facility] [address] [place] [address] Dilia Paulson DDS [address] [place], [place] [phone] Social History Tobacco Use Types Packs/Day Years [...] encounter Miscellaneous Notes * Telephone Encounter - Belkis Handley - 10/18/2024 10:59 AM EDT let msg to call the office back to reschedule her appt. documented in this encounter Plan of Treatment Upcoming Encounters Date Type Department Care Team (Late st Contact Info) Description 11/18/2024 1:30 PM EDT Office Visit [facility] ADULT D[facility] [address] [place] [address] Dilia Paulson, DDS [address] [place] [address] documented as of this encounter Visit Diagnoses Not on filedocumented in this encounter
--- OUTSIDE RECORDS SUMMARY | 2024-10-21 15:08 | XMS_ITS | Encounter Summary ---
Author Organization [employer] Address [address] [facility] 7t [place] [address] Care Team Providers Care Security Technician Name Role Phone Unavailable Primary Care Provider Unavailabl e Encounter Details Date Type Department Care Team (Late Contact Info) Description 10/18/2024 Telephone [facility] ADULT DENTAL [address] [place] [address] Dilia Paulson, DDS [address] [place] [address] Social History Tobacco Use Types Packs/Day Years [...] encounter Miscellaneous Notes * Telephone Encounter - Mago Silvestre - 10/18/2024 9:32 AM EDT Called patient to reschedule her appointment due to provider been out but there was no answer so I left a voicemail. documented in this encounter Plan of Treatment Upcoming Encounters Date Type Department Care Team (Late Contact Info) Description 11/18/2024 1:30 PM EDT Office Visit [facility] ADULT D[facility] [address] [place] [address] Dilia Paulson, DDS [address] [place] [address] documented as of this encounter Visit Diagnoses Not on filedocumented in this encounter
--- OUTSIDE RECORDS SUMMARY | 2024-10-21 15:08 | XMS_ITS | Encounter Summary ---
Author Organization [employer] Address [address] [facility] 7t [place] [address] Care Team Providers Care Swamper Name Role Phone Unavailable Primary Care Provider Unavailabl e Reason for Visit * Reason Onset Date Comments rs appt from 12/16/2023 Encounter Details Date Type Department Care Team (Late st Contact Info) Description 12/16/2023 Telephone [facility] [address] [place], [place] [phone] George Quiroz DDS [address] [place], [place] [phone] rs appt from April Social History Tobacco [...] Description 11/18/2024 1:30 PM EDT Office Visit [facility] AD[facility] D[facility] [address] [place] [address] Dilia Paulson DDS [address] [place] [address] documented as of this encounter Visit Diagnoses Not on filedocumented in this encounter
== END 2024-10-21 15:50 | disposition home or self-care (01) ==
LOC: HO.HWS 14:22
PROVIDERS: PCP Internal Medicine; Visit Provider Advanced Practice Midwife
DX: N93.9 Abnormal uterine and vaginal bleeding, unspecified (principal); Z32.02 Encounter for pregnancy test, result negative
CPT/HCPCS: 99213

== ENCOUNTER 2024-10-21 14:56 | Outpatient (REF) | payer OTHER, SELFPAY ==
[2024-10-21 17:13] LABS: Bacterial Vaginosis PCR NEGATIVE (Negative); Candida Group PCR NOT DETECTED (Not Detect); Candida glab krusei PCR NOT DETECTED (Not Detect); Trichomonas vaginalis PCR NOT DETECTED (Not Detect)
[2024-10-21 17:45] LABS: CT PCR NOT DETECTED (Not Detect.); NG PCR NOT DETECTED (Not Detect.)
== END 2024-10-21 14:57 | disposition home or self-care (01) ==
LOC: HO.LNP 14:56
PROVIDERS: Visit Provider Advanced Practice Midwife
DX: N93.9 Abnormal uterine and vaginal bleeding, unspecified (principal); Z11.3 Encounter for screening for infections with a predominantly sexual mode of transmission; Z11.8 Encounter for screening for other infectious and parasitic diseases
CPT/HCPCS: 81515; 87491; 87591

== ENCOUNTER 2024-10-28 14:58 | Outpatient (REF) | payer OTHER, SELFPAY ==
[2024-10-28 15:14] LABS: MANUAL DIFF FLAG NO
--- OUTSIDE RECORDS SUMMARY | 2024-10-28 16:04 | XMS_ITS | Encounter Summary ---
Author Organization [employer] Address [address] [facility] 7t [place] [address] Care Team Providers Care Foam Charger Name Role Phone Unavailable Primary Care Provider Unavailabl e Reason for Visit * Reason Onset Date Comments rs appt from 12/16/2023 Encounter Details Date Type Department Care Team (Late st Contact Info) Description 12/16/2023 Telephone [facility] ADULT D[facility] [address] [place], [place] [phone] George Quiroz DDS [address] [place], [place] [phone] rs appt from April Social History Tobacco [...] Description 11/18/2024 1:30 PM EDT Office Visit [facility] ADULT DENTAL [address] [place] [address] Dilia Paulson DDS [address] [place] [address] documented as of this encounter Visit Diagnoses Not on filedocumented in this encounter
--- OUTSIDE RECORDS SUMMARY | 2024-10-28 16:04 | XMS_ITS | Clinical Summary ---
Author Organization [employer] Address [address] [facility] [address] [place] [address] Care Team Providers Care Truck Sales Representative Name Role Phone Unavailable Primary Care Provider [...] Type Department Care Team Description 10/18/2024 Telephone [facility] ADULT DENT[facility] [address] [place] [address] Ricci-Dilia Salgado, SUKIS 10/18/2024 Telephone [facility]ULT [facility] [address] [place] [address] Ricci-Dilia Salgado, SUKIS 10/14/2024 8:30 AM EDT Office Visit [facility] ADULT [facility] [address] [place] [address] Radhames-Dilia Salgado DDS Need for full coverage dental crown (Primary Dx) 10/07/2024 Travel 09/30/2024 2:00 PM EDT Office Visit [facility]ULT [facility] [address] [place] [address] Dilia Paulson, NESTOR Dental caries (Primary Dx); Need for full coverage dental crown 08/23/2024 8:00 AM EDT Office Visit [facility] ADULT D[facility] [address] [place] [address] Ashley Goyal DDS 08/16/2024 2:15 PM EDT Office Visit [facility] ADULT D[facility] [address] [place] [address] George Quiroz DDS Dental caries (Primary Dx) 08/16/2024 11:30 AM EDT Office Visit [facility] ADULT D[facility] [address] [place] [address] Giuseppe Khan, NESTOR Pain, dental (Primary Dx); [...] Description 11/18/2024 1:30 PM EDT Office Visit [facility] ADULT [facility] [address] [place], [place] [phone] Dilia Paulson, DDS [address] [place] [address] Health Maintenance Due Date Last Done Comments [...] Cancer Screening 06/19/2019 HPV/Cotest 06/19/2019 COVID-19 Vaccine ( - 2024-2 6 season) 2024 02/13/2022, 01/09/2021, 05/07/2020 Influenza Vaccine (#1) 2024 [...] AM EDT from Last 3 Months Insurance [facility]AL-[facility] MEDICAID STAND ADULT
--- OUTSIDE RECORDS SUMMARY | 2024-10-28 16:04 | XMS_ITS | Encounter Summary ---
Author Organization [employer] Address [address] [place] [address] Care Team Providers Care Doll Maker Name Role Phone Unavailable Primary Care Provider Unavailabl e Encounter Details Date Type Department Care Team (Late st Contact Info) Description 08/30/2022 Telephone [facility] ADULT DENT[facility] [address] [place] [address] Todd Wade DMD [address] [place] [address] Social History Tobacco Use Types Packs/Day Years [...] Description 11/18/2024 1:30 PM EDT Office Visit [facility] ADULT DENT[facility] [address] [place] [address] Dilia Paulson, SUKIS [address] [place] [address] documented as of this encounter Visit Diagnoses Not on filedocumented in this encounter
[2024-10-28 16:18] LABS: Hematocrit 37.5 % (37.0-47.0); Hemoglobin 11.7 g/dl (12.0-16.0); Imm Gran Abs Auto 0.08 X10*3/uL (0.00-0.03); Imm Gran Pct Auto 0.7 % (0.0-0.4); Lymphocytes Absolute Auto 3.8 X10*3/uL (1.2-4.9); Mean Corpuscular HGB Conc 31.2 g/dl (31.0-35.0); Mean Corpuscular Hemoglobin 23.6 pg (27.0-33.0); Mean Corpuscular Volume 75.8 fL (80.0-98.0); NRBC Abs Auto 0.000 X10*3/uL (0.0-0.012); NRBC Pct Auto 0.0 /100WBC (0.0-0.2); Platelet Count 622 X10*3/uL (160-400); Red Blood Count 4.95 X10*6/uL (4.20-5.50); White Blood Count 12.1 X10*3/uL (4.8-10.8)
[2024-10-28 16:31] LABS: Hemoglobin A1C 262.8172 umol/L; Total Hemoglobin (HGBA1C) 3033.7106 umol/L
[2024-10-28 16:46] LABS: Alanine Aminotransferase 17 U/L (0-31); Albumin Level 4.9 g/dL (3.5-5.0); Alkaline Phosphatase 88 U/L (39-117); Anion Gap 11 (12-20); Aspartate Amino Transferase 19 U/L (5-31); Blood Urea Nitrogen 11 mg/dL (9-16); Calcium 9.3 mg/dL (8.4-10.2); Carbon Dioxide 23 mmol/L (22-29); Chloride 105 mmol/L (96-108); Cholesterol 193 mg/dL (<200); Estimated Glomerular Filt Rate > 60; HDL Cholesterol 37 mg/dL (>40); Potassium 3.9 mmol/L (3.3-5.1); Sodium 135 mmol/L (135-145); Total Protein 8.6 g/dL (6.5-8.0); Triglycerides 124 mg/dL (<150)
[2024-10-28 18:44] LABS: Microalbum/Creatinine Ratio Ur 25.0 ug/mg cr (<30)
== END 2024-10-28 14:59 | disposition home or self-care (01) ==
LOC: HO.LAB 14:58
PROVIDERS: PCP Internal Medicine; Visit Provider Internal Medicine
DX: Z00.01 Encounter for general adult medical examination with abnormal findings (principal); I10 Essential (primary) hypertension; G43.709 Chronic migraine without aura, not intractable, without status migrainosus; M79.7 Fibromyalgia; D50.0 Iron deficiency anemia secondary to blood loss (chronic); J45.40 Moderate persistent asthma, uncomplicated; K58.9 Irritable bowel syndrome, unspecified; E66.01 Morbid (severe) obesity due to excess calories; E03.8 Other specified hypothyroidism; F41.0 Panic disorder [episodic paroxysmal anxiety]; F43.10 Post-traumatic stress disorder, unspecified; F31.9 Bipolar disorder, unspecified; F41.1 Generalized anxiety disorder; R10.9 Unspecified abdominal pain
CPT/HCPCS: 36415; 80053; 80061; 82043; 82570; 83036; 84443; 85025

== ENCOUNTER → 2024-11-03 19:30 | Outpatient (REF) | payer OTHER, SELFPAY ==
--- OUTSIDE RECORDS SUMMARY | 2024-11-03 21:10 | XMS_ITS | Encounter Summary ---
Author Organization [employer] Address [address] [facility] 7t [place] [address] Care Team Providers Care Unhairing Inspector Name Role Phone Unavailable Primary Care Provider Unavailabl e Reason for Visit * Reason Onset Date Comments rs appt from 12/16/2023 Encounter Details Date Type Department Care Team (Late st Contact Info) Description 12/16/[address] [facility] ADULT DENT[facility] [address] [place] [address] George Quiroz DDS [address] [place], [place] [phone] rs appt from April Social History Tobacco [...] Description 11/18/2024 1:30 PM EDT Office Visit [facility] ADULT DENT[facility] [address] [place] [address] Dilia Paulson DDS [address] [place] [address] documented as of this encounter Visit Diagnoses Not on filedocumented in this encounter
--- OUTSIDE RECORDS SUMMARY | 2024-11-03 21:10 | XMS_ITS | Encounter Summary ---
Author Organization [employer] Address [address] [place] [address] Care Team Providers Care Handmade Tile Artist Name Role Phone Unavailable Primary Care Provider Unavailabl e Encounter Details Date Type Department Care Team (Late st Contact Info) Description 08/30/2022 Telephone [facility] ADULT DENTAL [address] [place] [address] Todd Wade DMD [address] [place] [address] Social History Tobacco Use Types Packs/Day Years [...] Description 11/18/2024 1:30 PM EDT Office Visit [facility] ADULT DENTAL [address] [place] [address] Dilia Paulson, SUKIS [address] [place] [address] documented as of this encounter Visit Diagnoses Not on filedocumented in this encounter
--- OUTSIDE RECORDS SUMMARY | 2024-11-03 21:10 | XMS_ITS | Clinical Summary ---
Author Organization [employer] Address [address] [place] [address] Care Team Providers Care Assistant Professor Of Education Name Role Phone Unavailable Primary Care Provider [...] Type Department Care Team Description 10/18/2024 Telephone [facility] ADULT DENT[facility] [address] [place] [address] Ricci-Dilia Salgado, SUKIS 10/18/2024 Telephone [facility]ULT [facility] [address] [facility] [place] [address] Ricci-Dilia Salgado, SUKIS 10/14/2024 8:30 AM EDT Office Visit [facility] ADULT DENT[facility] [address] [place] [address] Radhames-Dilia Salgado DDS Need for full coverage dental crown (Primary Dx) 10/07/2024 Travel 09/30/2024 2:00 PM EDT Office Visit [facility] ADULT D[facility] [address] [facility] [place] [address] Dilia Paulson, NESTOR Dental caries (Primary Dx); Need for full coverage dental crown 08/23/2024 8:00 AM EDT Office Visit [facility] ADULT D[facility] [address] [place] [address] Ashley Goyal DDS 08/16/2024 2:15 PM EDT Office Visit [facility] AD[facility] [address] [place] [address] George Quiroz DDS Dental caries (Primary Dx) 08/16/2024 11:30 AM EDT Office Visit [facility] ADULT DENT[facility] [address] [place] [address] Giuseppe Khan, NESTOR Pain, dental (Primary Dx); [...] Description 11/18/2024 1:30 PM EDT Office Visit [facility] ADULT DENT[facility] [address] [place], [place] [phone] Dilia Paulson, DDS [address] [place] [address] Health Maintenance Due Date Last Done Comments [...] AM EDT from Last 3 Months Insurance [facility] MEDICAID STAND ADULT
== END ==
LOC: HO.SL 19:30
PROVIDERS: PCP Internal Medicine; Visit Provider Nurse Practitioner Family
DX: G47.33 Obstructive sleep apnea (adult) (pediatric) (principal); G47.9 Sleep disorder, unspecified; E66.01 Morbid (severe) obesity due to excess calories; R06.83 Snoring
CPT/HCPCS: 95810

== ENCOUNTER → 2024-11-03 21:08 | Outpatient (BNV) | payer OTHER, SELFPAY | PROVIDERS: PCP Internal Medicine; Visit Provider Psychiatry & Neurology Neurology | DX: G47.33 Obstructive sleep apnea (adult) (pediatric) (principal) | CPT/HCPCS: 95810 ==

== ENCOUNTER 2024-11-12 12:23 | Outpatient (AMB) | payer OTHER, SELFPAY ==
--- NOTE | 2024-11-12 12:19 | A.OFFVIS_ITS ---
Intake Visit Reasons: 6 weeks MRI results [employer] Dispatcher Required: No Accompanied by: Self / Same As Patient Allergies amoxicillin (Amoxicillin) Allergy (Unknown, Verified 11/12/24 12:19) rash walnut Allergy (Unknown, Verified 11/12/24 12:19) throat itching Medication List - Last Reconciled 11/12/24 by GM Mcneill albuterol sulfate 90 mcg/actuation (Ventolin HFA) 1 inh inhalation QID PRN 30 days alcohol swabs (Alcohol Wipes) 1 pad topical TID aripiprazole 5 mg PO DAILY blood sugar diagnostic (FreeStyle Lite Strips) Check blood sugar three times daily before meals blood-glucose meter (FreeStyle Lite Meter kit) Check blood sugar three times daily before meals bupropion HCl XL 300 mg PO QAM 90 days dulaglutide 3 mg (0.5 mL) subcut QWEEK 90 days duloxetine 60 mg PO DAILY 90 days fluticasone propion-salmeterol 100-50 mcg/dose (Advair Diskus) 1 inh inhalation BID 30 days hydrochlorothiazide 25 mg PO DAILY lancets (FreeStyle Lancets) Test blood sugar 3 times per day levothyroxine 50 mcg PO DAILY lorazepam 0.5 mg PO DAILY PRN 30 days losartan 50 mg PO DAILY 90 days riboflavin (vitamin B2) 400 mg PO DAILY 30 days topiramate One tab daily at bedtime x1 week, and if well tolerated increase to 2 tabs daily at bedtime orally bedtime; 30 days ubrogepant (Ubrelvy) 50 - 100 mg (0.5 - 1 x 100 mg) PO ONCE PRN 30 days HPI Comments Details: 34-year-old female presents for follow-up to discuss interval workup results for worsening headaches, history of intracranial hypertension, history of sleep apnea 10/12/2024 right so brain MRI with and without contrast: No acute intracranial findings. 11/03/2024, in-lab PSG results are still pending. Pt does not currently have a CPAP. She had hematology f/u, forgot to address the RLS, but her anemia has been stable, and she is scheduled to have the Mirena placement on Nov 25, 2024. She missed her eye exam appointment due to the sudden onset of severe menstrual cramps. And though the patient?s mother called before the appointment, the office would not reschedule the appointment. She also notes her uncle recently . She has jury duty on Friday. In the past 2 weeks, she has had non-stop headaches, attributed to stresss. She started Ubrelvy, which is helping. Once it did not help for a more severe headache, but did not repeat the dose. She started Riboflavin 400mg qam and Topamax 25mg- tolerating well- possibly increased diarrhea. 10/05/2024, initial HPI: History of Present Illness The patient is a 34-year-old female presenting with headaches for neurological consultation. ?She is accompanied by her mother, Noreen. Patient reports the goal of today's visit is that she is looking for help to ?get rid of these headaches?. She reports a long history of headaches since her teenage years, which initially were associated with her menstrual cycle. In her 20s, she began experiencing migraines. She was diagnosed with idiopathic intracranial hypertension (IIH) five to six years ago by her eye doctor, with symptoms of increased retro- orbital pressure and episodes of severe headaches located behind the left eye. ?Patient reports her treatment included a lumbar puncture, but follow-up was not consistent. ?Since she has had headaches that have waxed and waned over the years. Recently, since early this year, her headaches have become more frequent and severe, occurring almost every day and causing a significant impact on daily functioning. They are characterized by left frontal pressure and throbbing pain associated with left eye swelling, blurry vision of the left eye, photophobia, nausea, fatigue, dizziness, and, upon occasion, ringing in the ears during the headache episodes. Activity and bending worsen the symptoms. Patient denies pulsatile tinnitus or headache exacerbated or triggered by supine position. She denies weight gain, but rather reports a recent weight loss associated with decreased appetite.. Patient states she is scheduled for an eye exam in November.? Her last eye exam was a few years ago.? She last saw Neurology at least 3 years ago. Surgical History: - Lumbar Puncture (for IIH five to six years ago) Medications: - Ibuprofen, [id number], for headache relief Review of Systems - Neurological: Reports headaches, blurred vision associated with headaches, dizziness, and spinning sensation. - Psych: Reports Anxiety and mood fluctuations consistent with Bipolar Disorder Type I, social anxiety disorder, with a tendency to not leave the home. - Cardiovascular: Reports hypertension, episodes of chest pain. - Respiratory: Reports history of asthma. - Endocrine: Reports diabetes, thyroid issues. - Gastrointestinal: Reports GERD, IBS- Diarrhea predominant, and anemia. - Musculoskeletal: Reports fibromyalgia; leg cramps. - Hematological: Reports anemia. - Genitourinary: Reports no specific genitourinary symptoms except relationship to menstrual cycle and symptoms. - Sleep: history of ISELA- did not tolerate CPAP. Insomnia with trouble maintaining sleep, variable sleep patterns. - ENT: Reports ringing tinnitus associated with headaches. Pertinent denials: Denies known head injury, kidney stones, seizures, syncope, HLD, or blood clots. Past Medical History Reviewed PMH in chart, as well as: - Migraine headaches - Idiopathic Intracranial Hypertension - Bipolar Disorder Type I - Sleep Apnea - Hypertension - Diabetes Mellitus - Asthma - Fibromyalgia - Anemia - Hypothyroidism - Restless Legs Syndrome - Gastroesophageal Reflux Disease - Irritable Bowel Syndrome - Social Anxiety Disorder Family History - Headaches and migraines in mother and sister - Brain tumor in sister (paternal half-sister) Headache Review Headache questionnaire: Age/time of onset: menstrual headaches in adolescence, then migraine in her early 20s, then 5-6 years ago was dx'd w/ IIH dx'd by her eye doctor and had f/u LP- but denies other tx, last eye exam was 2 yrs ago. Since then, the headaches have been on and off, but worse in the last year w/o a known precipitating cause. Preceding causes: No known initial causes Previous work-up: Remote history of head imaging and LP- unfortunately, results not available Last eye exam was a few years ago. Types of headache disorders: Chronic migraine with a history of known idiopathic intracranial hypertension- status not currently known Typical headache characteristics: Prodrome symptoms: Nausea Aura: Left eye blurry vision and sees sparkles during the headache. Pain intensity: severe Location, quality, characteristics: left frontal, left retrobulbar pressure, and throbbing headache Associated symptoms: left eye red/swollen, whole face redness, photophobia, bilateral ear ringing (sometimes w/o headache), allodynia, nausea, spinning dizziness, not right in space dizziness, feeling of being pushed dizziness, fatigue, cognitive difficulties, activity intolerance. Aggravating factors: bending over Postdrome: lingers Triggers: poor sleep- chronic, picking up a heavier object Time of day: No specific time of day Duration and Frequency: Almost every day How does a headache impact your life? Sometimes cannot even get out of bed. Current acute medication use/interventions: Ibuprofen 400mg- ineffective Current preventative medication use: None Current non-pharmacological interventions: Rest Headache Lifestyle Factors Social History - Family support: Patient engages responsibly with family, mother's involvement noted as emotional support. - Housing: Stable home environment with recent relocation. - Dietary behavior: Minimal discussion on structured meals, weight loss observed. - No current employment due to health conditions. - Lack of physical exercise; general inactivity. Nutrition The patient's dietary intake consists of minimal structured meals, leading to unintentional weight loss of 10 pounds recently. She reports a decrease in appetite, with soda consumption limited to occasional uses depending on availability. issues include obesity, with noted recent non-intentional loss of appetite. Exercise The patient reports no engagement in structured exercise activities. There are no recreational activities other than generalized inactive hobbies, including coloring and watching movies. Functional limitations are possibly due to the chronic headaches and associated fatigue symptoms. Sleep - Bedtime typically around 11:00 PM, with a prolonged sleep onset. - Frequent awakenings with final arousal around 7:00 AM, primarily for morning routines, often returning to sleep inconsistently after this time. - Sleep deprivation over days noted, inconsistent quality and quantity. - Difficulty in traditional sleep environment despite attempts at regular sleep routine. - Endorses snoring, history of sleep apnea though did not tolerate CPAP due to anxiety, fatigue, some restless leg symptoms. - Platina sleepiness scale: 10 Substance Use History - Denies use of alcohol, tobacco, or illicit drugs. [facility] Medical History Right-sided back pain H/O bipolar disorder Suicidal thoughts Irritable bowel syndrome Fibromyalgia Diabetes Insomnia Leukocytosis Thrombocytosis Acute anxiety Depression Anemia HTN (hypertension) Asthma Surgical History History of esophagogastroduodenoscopy (EGD) History of laparoscopic cholecystectomy Family History Sister Brain tumor Maternal Uncle Throat cancer Paternal Grandmother Leukemia Mother Fibromyalgia Maternal Grandmother Cancer of kidney Brother No problems noted. Brother No problems noted. Other Mental health disorder Substance use disorder Social History Household Members: Family Housing: Apartment Are you a primary ocular care aide to a significant other at home: No Do you presently have visiting nurse or other home services: No Alcohol intake: never Patient Tobacco Use Status: Never used Tobacco e-Cigarette/Vaping Use: Never Used Current occupational status: unemployed Sexual orientation: Straight/Heterosexual Gender identity: Female Cognitive needs: No Hearing needs: No Vision needs: No Physical Exam Const Orientation/consciousness: patient oriented x3 Resp Effort & Inspection: normal respiratory effort and able to speak in complete sentences Neuro General: patient oriented x3 Cognition (Neuro): normal cognition Motor exam (neuro): 5/5 motor strength present throughout Psych Appearance: grossly normal Mental Status: mental status grossly normal Speech and movement: Normal speech and movement present Affect: normal affect Telehealth Telehealth Telehealth Platform: Arzeda Location of provider rendering services: practice address Location of patient: address on file Patient Identification confirmed using: Name, : Yes Telehealth method: video Patient verbally consented to treatment: Yes Patient verbally consented to billing insurance company: Yes Patient informed of any privacy concerns related to visit: Yes Minutes spent on Phone/Video with Pt.: 15 Assessment & Plan Assessment & Plan (1) Worsening headaches: Code(s): R51.9 - Headache, unspecified Category: Medical (2) IIH (idiopathic intracranial hypertension): Code(s): G93.2 - Benign intracranial hypertension Category: Medical (3) Blurry vision: Code(s): H53.8 - Other visual disturbances Category: Medical (4) Sleep difficulties: Code(s): G47.9 - Sleep disorder, unspecified Category: Medical (5) Snoring: Code(s): R06.83 - Snoring Category: Medical (6) ISELA (obstructive sleep apnea): Code(s): G47.33 - Obstructive sleep apnea (adult) (pediatric) Category: Medical (7) Chronic migraine without aura: Comment: Unclear if blurry vision and seeing sparkles is related to migraine versus other headache processes, such as possible IIH recurrence Code(s): G43.709 - Chronic migraine without aura, not intractable, without status migrainosus Category: Medical Qualifiers: Status migrainosus presence: without status migrainosus Intractability: not intractable Qualified Code(s): G43.709 - Chronic migraine without aura, not intractable, without status migrainosus Plan Reviewed Brain MRI with and without contrast-unremarkable We will try to reschedule Ophthalmology evaluation including assessment for papilledema, peripheral vision deficits We will review In-lab sleep study results unavailable Follow-up with Hematology as scheduled, monitor serum ferritin levels and RLS symptoms Future considerations: LP for opening pressure upon review of MRI and ophthalmology consult, brain MRA/MRV, lab workup. For overall headache management: * Optimize good self-care, including but not limited to maintaining a healthy diet, adequate fluid intake, adequate sleep, and engaging in regular physical activity. * Track headaches and both positive and negative effects of your headache treatment trials, especially after any treatment regimen changes. * Migraine [employer] is one of many headache tracking apps. * A simple paper calendar is also a good option. * Non-pharmacological interventions which may help to alleviate your headache attack frequency, severity, and associated symptoms: * For light sensitivity: You may benefit from trying blue light filtering glasses, FL-41 blue light filter in glasses, green glasses, green light therapy. Avoid wearing traditional sunglasses inside. * For sound sensitivity: You may benefit from trying noise cancellation ear plugs. * Neuromodulation devices, which can be used alone or with pharmacological treatment. * Continue psychological counseling as scheduled * Reestablish care with psychiatry when able For acute (as needed) headache treatment: It is important to take acute medications at the first sign of headache. However, please be aware that frequently using most acute medications may increase the frequency of your headache attacks, as well as make your other treatments less effective.. Trial Ubrogepant (Ubrelvy) 100mg tab: * Continue Ubrogepant 1/2 - 1 tab (50-100mg) at onset of headache. * You may repeat the dose in 2 hours. Max of 2 tabs (200mg) per 24 hours. * You may take Ubrogepant with OTC Tylenol 650mg q 4 hours, Ibuprofen (liquid gel) 600mg q 6 hours, or Naproxen (liquid gel) 440mg q 12 hrs as needed. * Do not take Ubrogepant with or within 5 days of taking Butalbital (Fioricet or Fiorinal). * Possible adverse effects of Ubrogepant include, but are not limited to, fatigue, nausea, dry mouth, constipation. * This medication likely will require an insurance prior authorization before you will be able to receive this from your pharmacy. ? * We will initiate the prior authorization process per your specific health insurance's requirements. ? * However, please note, that your health insurance belongs to you, and you may also need to communicate with your insurance company in order for the prior authorization request to be processed. ?it is possible that you will also need to speak to your insurance regarding requesting the prior authorization Previous acute migraine medication trials: Sumatriptan tabs- caused nause Acute migraine medication contraindications: All triptans and DHE due to poorly controlled hypertension. For headache prevention medication: Preventative medications should be taken routinely as prescribed for best effect, it may take several weeks for full effect to take effect. Hold Riboflavin 400mg daily in the morning-as this may be causing the increase diarrhea or GI symptoms. * This is generally well tolerated, however some people may experience mild abdominal discomfort from use. * This will cause your urine to become bright yellow or orange, which is expected and not of any concern. If GI symptoms resolve with holding riboflavin, increase topiramate IR from 25 mg daily at bedtime to 50 mg daily at bedtime. If GI symptoms do not resolve with holding riboflavin, patient advised to notify us to consider an alternate treatment to the topiramate. Previous migraine prevention medication trials: Amitriptyline- caused nocturnal headaches. Migraine prevention medication contraindications: Magnesium due to IBS-diarrhea predominant. Amitriptyline, TCAs, antidepressants-as patient has bipolar type 1 and is not currently on an opposing mood stabilizer. Beta-blockers due to symptomatic asthma diagnosis. We will follow-up upon review of above and clinic visit in 4 months or sooner as needed. Coding Level of Care Code Tele Est Pt Level 4 (88952) Diagnoses Worsening headaches R51.9 IIH (idiopathic intracranial hypertension) G93.2 Blurry vision H53.8 Sleep difficulties G47.9 Snoring R06.83 ISELA (obstructive sleep apnea) G47.33 Chronic migraine without aura without status migrainosus, not intractable G43.709 Status migrainosus presence: without status migrainosus Intractability: not intractable
--- OUTSIDE RECORDS SUMMARY | 2024-11-12 12:28 | XMS_ITS | Clinical Summary ---
Author Organization [employer] Address [address] [place] [address] Care Team Providers Care Hay Sorter Name Role Phone Unavailable Primary Care Provider [...] Type Department Care Team Description 10/18/2024 Telephone [facility] [address] [place] [address] Ricci-Dilia Salgado, SUKIS 10/18/2024 Telephone [facility] [address] [place] [address] Ricci-Dilia Salgado, SUKIS 10/14/2024 8:30 AM EDT Office Visit [facility] [address] [place] [address] Radhames-Dilia Salgado DDS Need for full coverage dental crown (Primary Dx) 10/07/2024 Travel 09/30/2024 2:00 PM EDT Office Visit [facility] [address] [place] [address] Dilia Paulson, NESTOR Dental caries (Primary Dx); Need for full coverage dental crown 08/23/2024 8:00 AM EDT Office Visit [facility] [address] [place] [address] Ashley Goyal DDS 08/16/2024 2:15 PM EDT Office Visit [facility] [address] [place] [address] George Quiroz DDS Dental caries (Primary Dx) 08/16/2024 11:30 AM EDT Office Visit [facility] [address] [place] [address] Giuseppe hKan, NESTOR Pain, dental (Primary Dx); Dental caries [...] Description 11/18/2024 1:30 PM EDT Office Visit [facility] [address] [place], [place] [phone] Dilia Paulson, DDS [address] [place] [address] Health Maintenance Due Date Last Done Comments [...] AM EDT from Last 3 Months Insurance [facility] MEDICAID STAND ADULT
--- OUTSIDE RECORDS SUMMARY | 2024-11-12 12:28 | XMS_ITS | Encounter Summary ---
Author Organization [employer] Address [address] [place] [address] Care Team Providers Care Demurrage Worker Name Role Phone Unavailable Primary Care Provider Unavailabl e Reason for Visit * Reason Onset Date Comments rs appt from 12/16/2023 Encounter Details Date Type Department Care Team (Late st Contact Info) Description 12/16/2023 Telephone [facility] [address] [place], [place] [phone] George Quiroz DDS [address] [place], [place] [phone] rs appt from April Social History Tobacco [...] Description 11/18/2024 1:30 PM EDT Office Visit [facility] [address] [place] [address] Dilia Paulson DDS [address] [place] [address] documented as of this encounter Visit Diagnoses Not on filedocumented in this encounter
--- OUTSIDE RECORDS SUMMARY | 2024-11-12 12:28 | XMS_ITS | Encounter Summary ---
Author Organization [employer] Address [address] [place] [address] Care Team Providers Care Call Center Support Consultant Name Role Phone Unavailable Primary Care Provider Unavailabl e Encounter Details Date Type Department Care Team (Late st Contact Info) Description 08/30/2022 Telephone [facility] [address] [place] [address] Todd Wade DMD [address] [place] [address] Social History Tobacco Use Types Packs/Day Years [...] Description 11/18/2024 1:30 PM EDT Office Visit [facility] [address] [place] [address] Dilia Paulson, SUKIS [address] [place] [address] documented as of this encounter Visit Diagnoses Not on filedocumented in this encounter
== END 2024-11-12 13:27 | disposition home or self-care (01) ==
LOC: HO.HSMS 12:23
PROVIDERS: PCP Internal Medicine; Visit Provider Nurse Practitioner Family
DX: R51.9 Headache, unspecified (principal); G93.2 Benign intracranial hypertension; H53.8 Other visual disturbances; G47.9 Sleep disorder, unspecified; R06.83 Snoring; G47.33 Obstructive sleep apnea (adult) (pediatric); G43.709 Chronic migraine without aura, not intractable, without status migrainosus
CPT/HCPCS: 99214

== ENCOUNTER 2024-11-25 15:15 | Outpatient (REF) | payer OTHER, SELFPAY | END 2024-11-25 15:16 | disposition home or self-care (01) | LOC: HO.LNP 15:15 | PROVIDERS: PCP Internal Medicine; Visit Provider Advanced Practice Midwife | DX: N93.9 Abnormal uterine and vaginal bleeding, unspecified (principal); Z30.430 Encounter for insertion of intrauterine contraceptive device; Z32.02 Encounter for pregnancy test, result negative | CPT/HCPCS: 58100; 58300; 81025; 88305; J7298 ==

== ENCOUNTER 2024-11-25 15:15 | Outpatient (AMB) | payer OTHER, SELFPAY ==
--- NOTE | 2024-11-25 15:21 | MHC.OFFVIS ---
Vital Signs 11/25/24 15:28 Height 5 ft 5 in Weight 345 lb BMI 57.4 BP 124/76 Intake Visit Reasons: emb/mirena insertion Client Integration Manager: Client Integration Manager Present (Geeta) Allergies amoxicillin (Amoxicillin) Allergy (Unknown, Verified 11/25/24 15:22) rash walnut Allergy (Unknown, Verified 11/25/24 15:22) throat itching Is last menstrual period known: Yes Last menstrual period: 11/15/24 HPI Comments Details: Patient is here today for a endometrial biopsy due to AUB to be followed with a Mirena IUD insertion. She denies any risk factors for , has not been sexually active for 5-6 years. UPT is negative. [facility] Medical History IUD (intrauterine device) in place Right-sided back pain H/O bipolar disorder Suicidal thoughts Irritable bowel syndrome Fibromyalgia Diabetes Insomnia Leukocytosis Thrombocytosis Acute anxiety Depression Anemia HTN (hypertension) Asthma Surgical History History of esophagogastroduodenoscopy (EGD) History of laparoscopic cholecystectomy Family History Sister Brain tumor Maternal Uncle Throat cancer Paternal Grandmother Leukemia Mother Fibromyalgia Maternal Grandmother Cancer of kidney Brother No problems noted. Brother No problems noted. Other Mental health disorder Substance use disorder Social History Household Members: Family Housing: Apartment Are you a primary career and guidance counselor to a significant other at home: No Do you presently have visiting nurse or other home services: No Alcohol intake: never Patient Tobacco Use Status: Never used Tobacco e-Cigarette/Vaping Use: Never Used Current occupational status: unemployed Sexual orientation: Straight/Heterosexual Gender identity: Female Cognitive needs: No Hearing needs: No Vision needs: No Female Reproductive History Menstrual Date of last menstrual period: 11/15/24 Review of Systems Const All systems reviewed & are unremarkable except as noted in HPI and below Physical Exam Vital Signs: Last Vital Signs BP 124/76 11/25/24 15:28 BMI result Body Mass Index 57.4 Const General: cooperative, healthy appearing and no acute distress Orientation/consciousness: patient oriented x3 GI Inspection: Yes normal to inspection Palpation (GI): Soft to palpation and Other GI palpation findings present (Nontender) Rectal Exam - Female: visual inspection normal General: Yes bladder normal to palpation External Female Exam: normal appearance of the urethra Speculum Exam - Vagina: normal appearance of the vagina, normal palpation and normal vaginal discharge Speculum Exam - Cervix: normal appearance of the cervix and normal palpation Bimanual exam- vagina & uterus: normal bimanual exam, normal palpation, uterine size normal, bladder normal to palpation, normal palpation, uterine shape normal and non-tender Bimanual Exam- Adnexa, other: normal adnexae Neuro General: patient oriented x3 Office Procedures IUD Insert/Removal Details [id number]-GTP Insertion Procedure code (CPT) selection complete Endometrial Biopsy Details: The patient is here today for an endometrial biopsy due to AUB to rule out any pathology including atypical, hyperplasia or cancer cells of the uterus. She was counseled regarding anticipatory guidance for the procedure including the risks for pain, infection, bleeding, perforation, potential injury to the tissues may include the cervix, uterus, tubes, bladder and bowels. These injuries may include further treatment and evaluation including surgery, blood transfusions, antibiotics, hospitalizations and anesthesia. Permanent injury and scarring can occur. She was consented for the procedure, and the consent forms were signed. She is agreeable to have the procedure today. All questions were answered. Endometrial Biopsy Procedure: The patient was placed in the dorsal lithotomy position and a sterile speculum inserted. Using aseptic technique for the procedure. The cervix was cleansed with Betadine x 3 swabs. A single toothed tenaculum was placed on the cervix for stabilization and the uterus was sounded to 9 cm with a 4mm pipelle, and tissue sample obtained. Minimal bleeding was observed. The tissue sample was placed in formalin in a patient labeled container by staff assisting and sent to the pathology department for processing and interpretation. The patient tolerate the procedure well and was in good condition when leaving the department. Endometrial Biopsy Post Procedure Care: Nothing in the vagina including: tampons, douching or intimacy until all the bleeding has subsided. There may be some post procedure bleeding for several days, this bleeding is usually light and may turn to a light brown or pink color. Mild cramps may occurs. Nothing in the vaginal including: tampons, douching, or intimacy until all the bleeding has subsided. You may take an over the counter mild analgesic such as Tylenol or Advil (if no allergies) per the manufactures recommendation on dosing, frequency, and follow the directions completely. Call the office if any: fever (over 100.4), flu like symptoms, abdominal pain (worse than cramping), foul smelling, infected appearing vaginal discharge, or heavy bleeding. If indicated: Use condoms to prevent and STI's, and only after the bleeding has stopped completely. Return to the office in 2 weeks for results and plan of care. This note is constructed using voice recognition software. While every effort has been made to ensure accuracy, tooth cutter errors may have been included. 63843-Ocopuullxmw Biopsy IUD Insert/Removal Details Details: The patient is here today for a Mirena IUD insertion. She was counseled on the side effects including: menstrual cycle changes, pain, infection, bleeding, or expulsion. Risks of injury to the vagina, cervix, uterus, tubes, ovaries, bowel, bladder, and any adjacent tissue, resulting in nerve damage, scarring, and pain. Risks complications for the procedure that may require other test including ultrasounds, Xray, CT or MRI scan, surgery, anesthesia, blood transfusion. A urine test was completed and was negative. She was consented for the IUD insertion and has signed the consent form. All questions were answered. IUD Insertion: The patient was placed in the dorsal lithotomy position and a sterile speculum was inserted. The procedure was completed under aseptic technique. The cervix and vagina were cleansed with a Betadine solution x 3 swabs. A single toothed tenaculum was applied to the cervix for stabilization, and the uterus was sounded to 9 cm. The device was inserted and released with a gentle motion. Bleeding from the tenaculum sites and the procedure were minimal. The strings were trimmed to 3cm. All of the equipment was removed and the bimanual was normal, no tip was palpable at the cervical os. The patient tolerated the procedure well and left the office in good condition. Post IUD Insertion Care: There may be some post insertion bleeding for several days that is usually light and can turn to a light brown or pink in color. Mild cramping may occur. Nothing in the vagina including: tampons, douching or intimacy for several days. You may take an over the counter mild analgesia like Tylenol or Advil (if no allergies), per the manufacturers recommendations on dosing and frequency. Follow the directions completely. Call the office if any: fever (over 100.4), flu like symptoms, abdominal pain, worsening cramping not resolved with over the counter medications, foul smelling vaginal odor, signs of infected appearing discharge, or heavy bleeding. Use a condom for a back up method if indicated for 7 days. Always use a condom for STI prevention; IUD's are not protective against STD's. Return to the office in 4-6 weeks for IUD recheck. This note is constructed using voice recognition software. While every effort has been made to ensure accuracy, tooth cutter errors may have been included. 87032-GNK Insertion Procedure code (CPT) selection complete Office Meds Mirena 21 mcg/24 hr (up to 8 years) 52 mg intrauterine device Performing Provider: Sena Caro CNM Performing Location: [facility] [place] [facility] Administered by: WAGNER Oropeza on 11/25/24 15:58 Dose Route Admin Location Dispensed Lot Number Expiration Date [facility] Hop Trainer 1 device intrauterine 1 device [id number] 12/24/26 00241-138-35 [employer] Total Dispensed Waste 1 device 0 % Results AMB Test Urine AMB Test Urine Negative Last Edit by WAGNER Oropeza on 11/25/24 15:31 Results Reviewed Results Reviewed: Laboratory Last Values [facility]st Clinic Negative 11/25/24 15:30 Assessment & Plan Assessment & Plan (1) Abnormal uterine bleeding (AUB): Code(s): N93.9 - Abnormal uterine and vaginal bleeding, unspecified Category: Medical Plan: Endometrial biopsy procedure completed, see procedure notes. (2) Encounter for IUD insertion: Code(s): Z30.430 - Encounter for insertion of intrauterine contraceptive device Plan See procedure notes. Mirena IUD inserted for AUB for 5 years. This note is constructed using voice recognition software. While every effort has been made to ensure accuracy, tooth cutter errors may have been included. Orders: Orders AMB HCG Urine Test Today Z32.02 - Encounter for test, result negative Surgical Today N93.9 - Abnormal uterine and vaginal bleeding, unspecified AMB IUD Insertion/Removal - Practice Supplied Today Z30.430 - Encounter for insertion of intrauterine contraceptive device Coding Level of Care Code Procedure Only Diagnoses Abnormal uterine bleeding (AUB) N93.9 Encounter for IUD insertion Z30.430 CPT Codes Details - CPT: 96629-RNA Insertion ([id number]) Endometrial Biopsy - CPT: 08369-Mhmpddozcii Biopsy ([id number]) Details - CPT: 14280-BOK Insertion ([id number])
[2024-11-25 15:28] VITALS: BP 124/76; BMI 57.4
--- OUTSIDE RECORDS SUMMARY | 2024-11-25 16:36 | XMS_ITS | Encounter Summary ---
Author Organization [employer] Address [address] [place] [address] [address] [place] [address] Care Team Providers Care Cookee Name Role Phone Unavailable Primary Care Provider Unavailabl e Reason for Visit * Reason Onset Date Comments rs appt from 12/16/2023 Encounter Details Date Type Department Care Team (Late st Contact Info) Description 12/16/2023 Telephone [facility] ADULT DENTAL [address] [place], [place] [phone] George Quiroz DDS [address] [place], [place] [phone] rs appt from April Social History Tobacco [...] looking for rs consult appt with Dr. Quiorz April. It is not active requested and it hasnot been wait listed due to the length of time patient hasn't been seen. Pls reach out to patient documented in this encounter Plan of Treatment Not on file documented as of this encounter Visit Diagnoses Not on filedocumented in this encounter
--- OUTSIDE RECORDS SUMMARY | 2024-11-25 16:36 | XMS_ITS | Clinical Summary ---
Author Organization [employer] Address [address] [place] [address] Care Team Providers Care Radio Installer Name Role Phone Unavailable Primary Care Provider [...] Type Department Care Team Description 10/18/2024 Telephone [facility] ADULT DENTAL [address] [place] [address] Dilia Paulson DDS 10/18/2024 Telephone [facility] [address] [place] [address] Dilia Paulson DDS 10/14/2024 8:30 AM EDT Office Visit [facility] [address] [place] [address] Dilia Paulson DDS Need for full coverage dental crown (Primary Dx) 10/07/2024 Travel 09/30/2024 2:00 PM EDT Office Visit [facility] [address] [place] [address] Dilia Paulson DDS Dental caries (Primary Dx); Need for full coverage dental crown from Last 3 Months Social History Tobacco [...] Mass Index - - Plan of Treatment Health Maintenance Due Date [...] caries Need for full coverage dental crown PANORAMIC RADIOGRAPHIC IMAGE Routine 08/16/2024 11:30 AM EDT from Last 3 Months or Most Recently Relevant to Health Maintenance [facility] ST[facility]
--- OUTSIDE RECORDS SUMMARY | 2024-11-25 16:36 | XMS_ITS | Encounter Summary ---
Author Organization [employer] Address [address] [place] [address] Care Team Providers Care Social Director Name Role Phone Unavailable Primary Care Provider Unavailabl e Encounter Details Date Type Department Care Team (Late st Contact Info) Description 08/30/2022 Telephone [facility] ADULT DENTAL [address] [place] [address] Todd Wade DMD [address] [place] [address] Social History Tobacco Use Types Packs/Day Years [...]
== END 2024-11-25 16:10 | disposition home or self-care (01) ==
LOC: HO.HWS 15:15
PROVIDERS: PCP Internal Medicine; Visit Provider Advanced Practice Midwife
DX: N93.9 Abnormal uterine and vaginal bleeding, unspecified (principal); Z30.430 Encounter for insertion of intrauterine contraceptive device; Z32.02 Encounter for pregnancy test, result negative
CPT/HCPCS: 58100; 58300

== ENCOUNTER 2024-12-29 14:32 | Outpatient (AMB) | payer OTHER, SELFPAY ==
--- NOTE | 2024-12-29 14:33 | A.OFFVIS_ITS ---
Intake Visit Reasons: iud CHECK Whizzer Operator: Whizzer Operator Present (Evelin) Accompanied by: Self / Same As Patient Allergies amoxicillin (Amoxicillin) Allergy (Unknown, Verified 12/29/24 14:51) rash walnut Allergy (Unknown, Verified 12/29/24 14:51) throat itching HPI HPI iud CHECK: Details: Patient says she she called last week because she felt something pinching inside she had an IUD placed about 3-1/2 weeks ago to 4 weeks ago along with the endometrial biopsy and she has a an appointment scheduled next week on the with the provider who inserted it. She is wondering if it has become dislodged or has come out. She did feel the string.. She is not sexually active she is bleeding lightly from a period that is started this week. [facility] Medical History IUD (intrauterine device) in place Right-sided back pain H/O bipolar disorder Suicidal thoughts Irritable bowel syndrome Fibromyalgia Diabetes Insomnia Leukocytosis Thrombocytosis Acute anxiety Depression Anemia HTN (hypertension) Asthma Surgical History History of esophagogastroduodenoscopy (EGD) History of laparoscopic cholecystectomy Family History Sister Brain tumor Maternal Uncle Throat cancer Paternal Grandmother Leukemia Mother Fibromyalgia Maternal Grandmother Cancer of kidney Brother No problems noted. Brother No problems noted. Other Mental health disorder Substance use disorder Social History Household Members: Family Housing: Apartment Are you a primary career discovery teacher to a significant other at home: No Do you presently have visiting nurse or other home services: No Alcohol intake: never Patient Tobacco Use Status: Never used Tobacco e-Cigarette/Vaping Use: Never Used Current occupational status: unemployed Sexual orientation: Straight/Heterosexual Gender identity: Female Cognitive needs: No Hearing needs: No Vision needs: No Female Reproductive History Menstrual Date of last menstrual period: 12/24/24 control method: progestin IUCD (Mirena ) Total pregnancies: 0 Physical Exam Other: Very challenging speculum and bimanual exam. Long large Graves needed. Nulliparous cervix visible with Mirena IUD string no plastic body of IUD visible nor able to be probed in os. Bimanual exam confirms this. We will obtain ultrasound to ascertain correct positioning so that when patient meets with provider on 01/04 as scheduled she will have access to the ultrasound. Assessment & Plan Assessment & Plan (1) IUD complication: Comment: Patient had IUD inserted 1 month ago felt pinching last week, string visible appears to be in Situ needs ultrasound to reassess before follow-up visit 01/04 with BM. Code(s): T83.9XXA - Unspecified complication of genitourinary prosthetic device, implant and graft, initial encounter Category: Medical Plan We will obtain urgent ultrasound to obtain ultrasound before patient is scheduled visit with Sena on 01/04 25 she has a visit to review the EMB results and the IUD post insertion. The IUD appears to be in the correct place today but we will ascertain if it has slipped down. If it has it will need to be removed. I am ordering the ultrasound to be done urgently so it can be done before the 01/04/2025 appointment and red appropriately. Orders: Orders US pelvic and transvaginal Today T83.9XXA - Unspecified complication of genitourinary prosthetic device, implant and graft, initial encounter Coding Level of Care Code Est Pt Level 3 (39662) Diagnoses IUD complication T83.9XXA
--- OUTSIDE RECORDS SUMMARY | 2024-12-29 17:40 | XMS_ITS | Encounter Summary ---
Author Organization [employer] Address [address] [place] [address] [address] [place] [address] Care Team Providers Care Short Piece Handler Name Role Phone Unavailable Primary Care Provider Unavailabl e Reason for Visit * Reason Onset Date Comments rs appt from 12/16/2023 Encounter Details Date Type Department Care Team (Late st Contact Info) Description 12/16/2023 Telephone [facility] ADULT DENTAL [address] [place], [place] [phone] George Quiroz DDS [address] [place], [place] [phone] rs appt from April Social History Tobacco [...]
--- OUTSIDE RECORDS SUMMARY | 2024-12-29 17:40 | XMS_ITS | Clinical Summary ---
Author Organization [employer] Address [address] [place] [address] Care Team Providers Care Playground Attendant Name Role Phone Unavailable Primary Care Provider [...] Type Department Care Team Description 10/18/2024 Telephone [facility] ADULT DENTAL [address] [place] [address] Dilia Paulson DDS 10/18/2024 Telephone [facility] ADULT DENTAL [address] [place] [address] Dilia Paulson DDS 10/14/2024 8:30 AM EDT Office Visit [facility] ADULT DENTAL [address] [place] [address] Dilia Paulson DDS Need for full coverage dental crown (Primary Dx) 10/07/2024 Travel 09/30/2024 2:00 PM EDT Office Visit [facility] ADULT DENTAL [address] [place] [address] Dilia Paulson DDS Dental caries (Primary Dx); [...] Most Recently Relevant to Health Maintenance [facility] ST[facility]
--- OUTSIDE RECORDS SUMMARY | 2024-12-29 17:40 | XMS_ITS | Encounter Summary ---
Author Organization [employer] Address [address] [place] [address] Care Team Providers Care Certified Fraud Examiner Name Role Phone Unavailable Primary Care Provider Unavailabl e Encounter Details Date Type Department Care Team (Late st Contact Info) Description 08/30/2022 Telephone [facility] ADULT DENTAL [address] [place] [address] Todd Wade DMD [address] [place] [address] Social History Tobacco Use Types Packs/Day Years [...]
== END 2024-12-30 09:33 | disposition home or self-care (01) ==
LOC: HO.HWSM 14:32
PROVIDERS: PCP Internal Medicine; Visit Provider Advanced Practice Midwife
DX: T83.9XXA Unspecified complication of genitourinary prosthetic device, implant and graft, initial encounter (principal)
CPT/HCPCS: 99213

== ENCOUNTER → 2024-12-29 14:32 | Outpatient (BNVA) | payer OTHER, SELFPAY | PROVIDERS: PCP Internal Medicine; Visit Provider Advanced Practice Midwife | DX: T83.9XXA Unspecified complication of genitourinary prosthetic device, implant and graft, initial encounter (principal) | CPT/HCPCS: 99212 ==

== ENCOUNTER 2024-12-31 13:57 | Outpatient (AMB) | payer OTHER, SELFPAY ==
--- NOTE | 2024-12-31 14:00 | MHC.PC.OV ---
Vital Signs 12/31/24 14:01 Height 5 ft 5 in Weight 342 lb BMI 56.9 BP 130/72 Blood Pressure Location Lt brachial Position Sitting Pulse 86 Pulse Source Pulse Oximeter Pulse Oximetry (%) 99 Intake Visit Reasons: med management Allergies amoxicillin (Amoxicillin) Allergy (Unknown, Verified 12/31/24 14:02) rash walnut Allergy (Unknown, Verified 12/31/24 14:02) throat itching Medication List - Last Reconciled 12/31/24 by Devyn Power MD albuterol sulfate 90 mcg/actuation (Ventolin HFA) 1 inh inhalation QID PRN 30 days alcohol swabs (Alcohol Wipes) 1 pad topical TID aripiprazole 5 mg PO DAILY blood sugar diagnostic (FreeStyle Lite Strips) Check blood sugar three times daily before meals blood-glucose meter (FreeStyle Lite Meter kit) Check blood sugar three times daily before meals bupropion HCl XL 300 mg PO QAM 90 days dulaglutide 3 mg (0.5 mL) subcut QWEEK 90 days duloxetine 60 mg PO DAILY 90 days fluticasone propion-salmeterol 100-50 mcg/dose (Advair Diskus) 1 inh inhalation BID 30 days hydrochlorothiazide 25 mg PO DAILY lancets (FreeStyle Lancets) Test blood sugar 3 times per day levothyroxine 50 mcg PO DAILY lorazepam 0.5 mg PO DAILY PRN 30 days losartan 50 mg PO DAILY 90 days riboflavin (vitamin B2) 400 mg PO DAILY 30 days topiramate One tab daily at bedtime x1 week, and if well tolerated increase to 2 tabs daily at bedtime orally bedtime; 30 days ubrogepant (Ubrelvy) 50 - 100 mg (0.5 - 1 x 100 mg) PO ONCE PRN 30 days Tobacco use date assessed: 05/26/24 Dental Screening Dental Screen Date: 05/26/24 HPI med management HPI Details History of Present Illness The patient is a 34-year-old female presenting for a regular follow-up for chronic condition management and evaluation of right shoulder pain. Right shoulder pain: - The patient reports right shoulder pain that began approximately one year ago. - She has difficulty with forward extension of the arm and pain with certain movements, which has limited her ability to use the arm. Type 2 Diabetes Mellitus: - The patient's last HbA1c was 10.1 in October. - She reports morning blood glucose levels are around 150 mg/dL at their lowest. - She is taking Trulicity 3 mg weekly and reports reduced sugar intake. - She has an upcoming appointment with an dye automation operator on February 15. Poor Appetite and Stress: - The patient reports having trouble eating and not eating much over the past week. - She notes significant stress related to her 13-year-old dog's illness, which causes her to wake at night. Medical History: - Type 2 Diabetes Mellitus - Hypertension - History of taking Topamax, which was discontinued by her neurologist due to stomach problems. - severe depression and anxiety - morbid obesity - asthma Medications: - Aripiprazole - Bupropion - Trulicity 3 mg, taken weekly - Duloxetine - Advair Diskus - Hydrochlorothiazide - Losartan - Rizepam - Topamax (discontinued due to stomach problems) Social History: - Reports significant stress related to her 13-year-old dog's illness. - Reports waking at random times at night due to stress about her dog. - Reports decreased appetite for the past week, which she relates to her stress. Problem List - Type 2 Diabetes Mellitus - Right shoulder pain - Hypertension - Stress - Medication management for severe depression and anxiety - asthma Plan - An x-ray of the right shoulder will be ordered to evaluate the patient's shoulder pain. - A referral to orthopedics or for physical therapy was discussed for management of the shoulder pain. - The patient will continue her current medications, and refills will be sent. - increase the dose of Trulicity to 4.5 - The patient will follow up with her dye automation operator on February 15 for management of her elevated HbA1c. - Follow-up is scheduled in three months. Review of Systems - General: No fever no chills - Neurological: No headaches no dizziness - Ear nose throat: No sore throat no hearing difficulty no ear pain - Cardiovascular: No syncope, no chest pain, no palpitations - Gastrointestinal: No nausea vomiting or diarrhea - Endocrine: No polyuria polydipsia no heat intolerance - Genitourinary: No dysuria , no blood in urine Physical Exam General: No acute distress HEENT: No acute findings Neck: Supple Respiratory system: Able to talk in full sentences, no audible wheeze Extremities: Trouble extending right shoulder forward, pain on movement CANNERY TENDER ENGINEER: Alert awake oriented x3 motor intact Skin: Normal turgor PFSH Medical History IUD (intrauterine device) in place Right-sided back pain H/O bipolar disorder Suicidal thoughts Irritable bowel syndrome Fibromyalgia Diabetes Insomnia Leukocytosis Thrombocytosis Acute anxiety Depression Anemia HTN (hypertension) Asthma Surgical History History of esophagogastroduodenoscopy (EGD) History of laparoscopic cholecystectomy Family History Sister Brain tumor Maternal Uncle Throat cancer Paternal Grandmother Leukemia Mother Fibromyalgia Maternal Grandmother Cancer of kidney Brother No problems noted. Brother No problems noted. Other Mental health disorder Substance use disorder Social History Household Members: Family Housing: Apartment Are you a primary customer care representative to a significant other at home: No Do you presently have visiting nurse or other home services: No Alcohol intake: never Patient Tobacco Use Status: Never used Tobacco e-Cigarette/Vaping Use: Never Used Current occupational status: unemployed Sexual orientation: Straight/Heterosexual Gender identity: Female Cognitive needs: No Hearing needs: No Vision needs: No Questionnaire Thrive Questionnaire Date Thrive assessed: 05/26/24 I am a: Patient What is your living situation today?: I have a steady place to live Within the past 12 months, did the food you bought not last and you didn't have the money to get more?: Sometimes True Within the past 12 months, did you worry whether your food would run out before you got money to buy more?: Sometimes True Do you have trouble paying for medicines?: No Do you have trouble getting transportation to medical appointments?: No Do you have trouble paying your heating and electricity bill?: No Do you have trouble taking care of your child, family member or friend?: I choose not to answer this question Do you have trouble with day-to-day activities such as bathing, preparing meals, shopping, managing finances, etc.?: I choose not to answer this question Are you currently unemployed and looking for a job?: I choose not to answer this question Are you interested in more education?: I choose not to answer this question Please select the resources that you would like help with: None Currently or been in a relationship where the following occur: I choose not to answer THRIVE Score: 2 RAJIV-7 AMB Questionnaire RAJIV-7 Date RAJIV - 7 assessed: 10/12/24 Source: Developed by Drs. Bogdan Ann, Karyn Joe, Miko Thomas and colleagues, with an educational krystyna from [employer]. Physical exam (Primary Care) Vital Signs: Last Vital Signs Pulse 86 12/31/24 14:01 BP 130/72 12/31/24 14:01 Pulse Ox 99 12/31/24 14:01 BMI result Body Mass Index 56.9 Tobacco/Smoking Status: Tobacco use Status Tobacco use date assessed 05/26/24 12/31/24 14:07 Patient Tobacco Use Status Never used Tobacco 12/31/24 14:07 e-Cigarette/Vaping Use Never Used 12/31/24 14:07 Thrive Assessment: Date of Thrive Assessment Date Thrive assessed 05/26/24 12/31/24 14:07 Currently or been in a relationship where the following occur: I choose not to answer Coding Level of Care Code Est Pt Level 4 (96890) Complex EM visit Add On G2211 Diagnoses Acute pain of right shoulder M25.511 Chronicity: acute Bipolar 1 disorder F31.9 Uncontrolled type 2 diabetes mellitus with hyperglycemia E11.65 Diabetes mellitus type: type 2 Glycemic state: with hyperglycemia Panic anxiety syndrome F41.0 Moderate persistent asthma without complication J45.40 Asthma persistence: persistent Asthma complication type: uncomplicated Hypertension, essential I10 Major depressive disorder, severe F32.2 Fibromyalgia M79.7 Chronic migraine without aura without status migrainosus, not intractable G43.709 Status migrainosus presence: without status migrainosus Intractability: not intractable Morbid obesity E66.01 PTSD (post-traumatic stress disorder) F43.10 Assessment & Plan Assessment & Plan (1) Shoulder pain, right: Code(s): M25.511 - Pain in right shoulder Category: Medical Qualifiers: Chronicity: acute Qualified Code(s): M25.511 - Pain in right shoulder (2) Bipolar 1 disorder: Code(s): F31.9 - Bipolar disorder, unspecified Category: Medical (3) Uncontrolled diabetes mellitus: Category: Medical Qualifiers: Diabetes mellitus type: type 2 Glycemic state: with hyperglycemia Qualified Code(s): E11.65 - Type 2 diabetes mellitus with hyperglycemia (4) Panic anxiety syndrome: Code(s): F41.0 - Panic disorder [episodic paroxysmal anxiety] Category: Medical (5) Asthma, moderate: Code(s): J45.909 - Unspecified asthma, uncomplicated Category: Medical Qualifiers: Asthma persistence: persistent Asthma complication type: uncomplicated Qualified Code(s): J45.40 - Moderate persistent asthma, uncomplicated (6) Hypertension, essential: Code(s): I10 - Essential (primary) hypertension Category: Medical (7) Major depressive disorder, severe: Code(s): F32.2 - Major depressive disorder, single episode, severe without psychotic features Category: Medical (8) Fibromyalgia: Code(s): M79.7 - Fibromyalgia Category: Medical (9) Chronic migraine without aura: Comment: Unclear if blurry vision and seeing sparkles is related to migraine versus other headache processes, such as possible IIH recurrence Code(s): G43.709 - Chronic migraine without aura, not intractable, without status migrainosus Category: Medical Qualifiers: Status migrainosus presence: without status migrainosus Intractability: not intractable Qualified Code(s): G43.709 - Chronic migraine without aura, not intractable, without status migrainosus (10) Morbid obesity: Code(s): E66.01 - Morbid (severe) obesity due to excess calories Category: Medical (11) PTSD (post-traumatic stress disorder): Code(s): F43.10 - Post-traumatic stress disorder, unspecified Category: Medical Plan Right shoulder pain: - The patient reports right shoulder pain that began approximately one year ago. - She has difficulty with forward extension of the arm and pain with certain movements, which has limited her ability to use the arm. Type 2 Diabetes Mellitus: - The patient's last HbA1c was 10.1 in October. - She reports morning blood glucose levels are around 150 mg/dL at their lowest. - She is taking Trulicity 3 mg weekly and reports reduced sugar intake. - She has an upcoming appointment with an dye automation operator on February 15. Poor Appetite and Stress: - The patient reports having trouble eating and not eating much over the past week. - She notes significant stress related to her 13-year-old dog's illness, which causes her to wake at night. Medical History: - Type 2 Diabetes Mellitus - Hypertension - History of taking Topamax, which was discontinued by her neurologist due to stomach problems. - severe depression and anxiety - morbid obesity - asthma Medications: - Aripiprazole - Bupropion - Trulicity 3 mg, taken weekly - Duloxetine - Advair Diskus - Hydrochlorothiazide - Losartan - Rizepam - Topamax (discontinued due to stomach problems) Social History: - Reports significant stress related to her 13-year-old dog's illness. - Reports waking at random times at night due to stress about her dog. - Reports decreased appetite for the past week, which she relates to her stress. Problem List - Type 2 Diabetes Mellitus - Right shoulder pain - Hypertension - Stress - Medication management for severe depression and anxiety - asthma Plan - An x-ray of the right shoulder will be ordered to evaluate the patient's shoulder pain. - A referral to orthopedics or for physical therapy was discussed for management of the shoulder pain. - The patient will continue her current medications, and refills will be sent. - increase the dose of Trulicity to 4.5 - The patient will follow up with her dye automation operator on February 15 for management of her elevated HbA1c. - Follow-up is scheduled in three months. Orders: Orders XR shoulder RT min 2V Today M25.511 - Pain in right shoulder Medications: Changed From dulaglutide 3 mg (0.5 mL) subcut QWEEK 90 days 6.5 mL 0RF To dulaglutide 4.5 mg (0.75 mL) subcut QWEEK 9.75 mL 0RF 90 days Refilled lorazepam 0.5 mg PO DAILY PRN 30 tabs 0RF anxiety 30 days losartan 50 mg PO DAILY 90 tabs 2RF 90 days aripiprazole 5 mg PO DAILY 90 tabs 0RF bupropion HCl XL 300 mg PO QAM 90 tabs 0RF 90 days F32.9 - Major depressive disorder, single episode, unspecified, F41.9 - Anxiety disorder, unspecified duloxetine 60 mg PO DAILY 90 caps 0RF 90 days hydrochlorothiazide 25 mg PO DAILY 90 tabs 2RF I10 - Essential (primary) hypertension
[2024-12-31 14:01] VITALS: BP 130/72; PULSE 86; O2SAT 99; BMI 56.9
--- OUTSIDE RECORDS SUMMARY | 2024-12-31 15:49 | XMS_ITS | Encounter Summary ---
Author Organization [employer] Address [address] [place] [address] Care Team Providers Care Expense Clerk Name Role Phone Unavailable Primary Care Provider Unavailabl e Encounter Details Date Type Department Care Team (Late st Contact Info) Description 08/30/2022 Telephone [facility] ADULT D[facility]AL [address] [place] [address] Todd Wade DMD [address] [place] [address] Social History Tobacco Use Types Packs/Day Years [...]
--- OUTSIDE RECORDS SUMMARY | 2024-12-31 15:49 | XMS_ITS | Clinical Summary ---
Author Organization [employer] Address [address] [place] [address] Care Team Providers Care Bar Waiter/Waitress Name Role Phone Unavailable Primary Care Provider [...] Type Department Care Team Description 10/18/2024 Telephone [facility] ADULT D[facility]AL [address] [place] [address] Dilia Paulson DDS 10/18/2024 Telephone [facility] ADULT [facility] [address] [place] [address] Dilia Paulson DDS 10/14/2024 8:30 AM EDT Office Visit [facility] ADULT [facility] [address] [place] [address] Dilia Paulson DDS Need for full coverage dental crown (Primary Dx) 10/07/2024 Travel 09/30/2024 2:00 PM EDT Office Visit [facility] ADULT D[facility] [address] [place] [address] Dilia Paulson DDS Dental caries (Primary Dx); [...] Most Recently Relevant to Health Maintenance Insurance [facility] ST[facility] ADULT
--- OUTSIDE RECORDS SUMMARY | 2024-12-31 15:49 | XMS_ITS | Encounter Summary ---
Author Organization [employer] Address [address] [place] [address] Care Team Providers Care Wood Heel Flap Trimmer Name Role Phone Unavailable Primary Care Provider Unavailabl e Reason for Visit * Reason Onset Date Comments rs appt from 12/16/2023 Encounter Details Date Type Department Care Team (Late st Contact Info) Description 12/16/2023 Telephone [facility] ADULT DENTAL [address] [place], [place] [phone] George Quiroz DDS [address] [place], [place] [phone] rs appt from April Social History Tobacco [...]
== END 2024-12-31 14:21 | disposition home or self-care (01) ==
LOC: HO.HMCC 13:58
PROVIDERS: PCP Internal Medicine; Visit Provider Internal Medicine
DX: E11.65 Type 2 diabetes mellitus with hyperglycemia (principal); F31.9 Bipolar disorder, unspecified; E66.01 Morbid (severe) obesity due to excess calories; Z68.43 Body mass index [BMI] 50.0-59.9, adult; M25.511 Pain in right shoulder; F41.0 Panic disorder [episodic paroxysmal anxiety]; J45.40 Moderate persistent asthma, uncomplicated; I10 Essential (primary) hypertension; M79.7 Fibromyalgia; G43.709 Chronic migraine without aura, not intractable, without status migrainosus; F43.10 Post-traumatic stress disorder, unspecified

== ENCOUNTER → 2024-12-31 13:57 | Outpatient (BNVA) | payer OTHER, SELFPAY | PROVIDERS: PCP Internal Medicine; Visit Provider Internal Medicine | DX: M25.511 Pain in right shoulder (principal); F31.9 Bipolar disorder, unspecified; E11.65 Type 2 diabetes mellitus with hyperglycemia; F41.0 Panic disorder [episodic paroxysmal anxiety]; J45.40 Moderate persistent asthma, uncomplicated; I10 Essential (primary) hypertension; M79.7 Fibromyalgia; G43.709 Chronic migraine without aura, not intractable, without status migrainosus; E66.01 Morbid (severe) obesity due to excess calories; F43.10 Post-traumatic stress disorder, unspecified; F41.9 Anxiety disorder, unspecified; Z68.43 Body mass index [BMI] 50.0-59.9, adult; Z63.79 Other stressful life events affecting family and household; Z79.899 Other long term (current) drug therapy | CPT/HCPCS: 99212 ==

== ENCOUNTER 2025-01-04 10:43 | Outpatient (AMB) | payer OTHER, SELFPAY ==
--- NOTE | 2025-01-04 10:49 | A.OFFVIS_ITS ---
Vital Signs 01/04/25 10:57 Height 5 ft 5 in Weight 341 lb BMI 56.7 BP 128/80 Blood Pressure Location Rt brachial Position Sitting Intake Visit Reasons: EMB Results/US results Intake Note: Patient here for emb results. No u/s done patient was sick and asked to reschedule but no time available before today Office visit. Information Interpreted: non-clinical & clinical Agricultural Economics Teacher: Agricultural Economics Teacher Present Accompanied by: Self / Same As Patient Allergies amoxicillin (Amoxicillin) Allergy (Unknown, Verified 01/04/25 10:53) rash walnut Allergy (Unknown, Verified 01/04/25 10:53) throat itching Medication List - Last Reconciled 01/04/25 by Maria A Boyer LPN albuterol sulfate 90 mcg/actuation (Ventolin HFA) 1 inh inhalation QID PRN 30 days alcohol swabs (Alcohol Wipes) 1 pad topical TID aripiprazole 5 mg PO DAILY blood sugar diagnostic (FreeStyle Lite Strips) Check blood sugar three times daily before meals blood-glucose meter (FreeStyle Lite Meter kit) Check blood sugar three times daily before meals bupropion HCl XL 300 mg PO QAM 90 days dulaglutide 4.5 mg (0.75 mL) subcut QWEEK 90 days duloxetine 60 mg PO DAILY 90 days fluticasone propion-salmeterol 100-50 mcg/dose (Advair Diskus) 1 inh inhalation BID 30 days hydrochlorothiazide 25 mg PO DAILY lancets (FreeStyle Lancets) Test blood sugar 3 times per day levothyroxine 50 mcg PO DAILY lorazepam 0.5 mg PO DAILY PRN 30 days losartan 50 mg PO DAILY 90 days riboflavin (vitamin B2) 400 mg PO DAILY 30 days topiramate One tab daily at bedtime x1 week, and if well tolerated increase to 2 tabs daily at bedtime orally bedtime; 30 days ubrogepant (Ubrelvy) 50 - 100 mg (0.5 - 1 x 100 mg) PO ONCE PRN 30 days Is last menstrual period known: Yes Last menstrual period: 12/24/24 Do you need a note to return to daycare/school/sports/work: No HPI Comments Details: Patient is here today for a follow up endometrial biopsy results. Seen on December 29 due to feeling her strings poking her, provider was unable to visualize her cervix, and ordered an ultrasound to determine IUD placement. Patient missed her ultrasound appointment due to illness. She has not rescheduled the ultrasound appointment. She declines exam today. [facility] Medical History IUD (intrauterine device) in place Right-sided back pain H/O bipolar disorder Suicidal thoughts Irritable bowel syndrome Fibromyalgia Diabetes Insomnia Leukocytosis Thrombocytosis Acute anxiety Depression Anemia HTN (hypertension) Asthma Surgical History History of esophagogastroduodenoscopy (EGD) History of laparoscopic cholecystectomy Family History Sister Brain tumor Maternal Uncle Throat cancer Paternal Grandmother Leukemia Mother Fibromyalgia Maternal Grandmother Cancer of kidney Brother No problems noted. Brother No problems noted. Other Mental health disorder Substance use disorder Social History Household Members: Family Housing: Apartment Are you a primary care management coordinator to a significant other at home: No Do you presently have visiting nurse or other home services: No Alcohol intake: never Patient Tobacco Use Status: Never used Tobacco e-Cigarette/Vaping Use: Never Used Current occupational status: unemployed Sexual orientation: Straight/Heterosexual Gender identity: Female Cognitive needs: No Hearing needs: No Vision needs: No Female Reproductive History Menstrual Age of Menarche: 9 Date of last menstrual period: 12/24/24 control method: progestin IUCD Total pregnancies: 0 Number of Living Children: 0 Review of Systems Const All systems reviewed & are unremarkable except as noted in HPI and below Endo Reports no additional complaints Physical Exam Vital Signs: Last Vital Signs BP 128/80 01/04/25 10:57 BMI result Body Mass Index 56.7 Const General: cooperative, healthy appearing and no acute distress Psych Appearance: well kempt Attitude: cooperative Thought process: Normal thought process present Results Reviewed Results Reviewed: Surgical Pathology [id number] __ Name: Phoebe Chapa Age/Sex: 34/F Attending: Sena Caro CNM : 1990 Submitted by: Sena Caro CNM Copies to: Devyn Power MD MR #: [id number] Status: DEP REF Collected: 11/25/24 Location: [facility] Received: 11/26/24 Diagnosis Endometrium, biopsy: - Mixed pattern inactive and secretory endometrium; no atypia or hyperplasia identified. - Endocervical epithelium within normal limits; mucoinflammatory material; no atypia identified. Clinical History AUB Microscopic Description Microscopic sections reviewed. Material Received Endometrial bx Gross Description Received in formalin labeled ?endometrial biopsy? are cylindrical portions of red-pink soft tissue mixed with mucus and clotted blood forming an aggregate measuring 2.0 x 1.6 x 0.3 cm which is wrapped in lens paper and entirely submitted for microscopic examination, multiple pieces in cassette A. ([facility]) Copies To Devyn Power MD [facility] Primary Care, [address] [address] Sena Caro CNM [facility] Women's Services [address] [place] [address] [place] [id number] NOTE: Unless otherwise stated, all tissue is formalin-fixed and paraffin-embedd ed. Some or all of the immunohistochemical tests reported herein may have been developed and their performance characteristics determined by [facility]. They have not been cleared or approved by the U.S. Food and Drug Administration (FDA). However, the FDA has determined that such clearance or approval is not necessary. This laboratory is certified under the Clinical Laboratory Improvement Amendments of 1988 (CLIA) as qualified to perform high complexity clinical laboratory testing. Patient: Phoebe Chapa Age/Sex: 34/F MR#: [id number] Page 1 of 2 Surgical Pathology [id number] Electronically Signed By: Jose Angel Fields MD 11/29/24 [id number] Patient: Phoebe Chapa Age/Sex: 34/F MR#: [id number] Page 2 of 2 Assessment & Plan Assessment & Plan (1) Abnormal uterine bleeding (AUB): Code(s): N93.9 - Abnormal uterine and vaginal bleeding, unspecified Category: Medical Plan: Mirena IUD placed, patient to reschedule the ultrasound to confirm positioning. Await results for follow up appointment to discuss in person. The patient expressed understanding and agreement with the plan of care. All of her questions and concerns were addressed to the best of my ability. (2) Encounter to discuss test results: Code(s): Z71.2 - Person consulting for explanation of examination or test findings Plan Discussed: Endometrial biopsy results- Diagnosis Endometrium, biopsy: - Mixed pattern inactive and secretory endometrium; no atypia or hyperplasia chilo ntified. - Endocervical epithelium within normal limits; mucoinflammatory material; no atypia identified. The patient expressed understanding and agreement with the plan of care. All of her questions and concerns were addressed to the best of my ability. This note is constructed using voice recognition software. While every effort has been made to ensure accuracy, ophthalmic technician apprentice errors may have been included. Coding Level of Care Code Est Pt Level 3 (83393) Diagnoses Abnormal uterine bleeding (AUB) N93.9 Encounter to discuss test results Z71.2
[2025-01-04 10:57] VITALS: BP 128/80; BMI 56.7
--- OUTSIDE RECORDS SUMMARY | 2025-01-04 12:23 | XMS_ITS | Clinical Summary ---
Author Organization [employer] Address [address] [place] [address] Care Team Providers Care Electric Organ Assembler Name Role Phone Unavailable Primary Care Provider [...] Type Department Care Team Description 10/18/2024 Telephone [facility] ADULT DENTAL [address] [place] [address] Dilia Paulson DDS 10/18/2024 Telephone [facility] ADULT D[facility] [address] [place] [address] Dilia Paulson DDS 10/14/2024 8:30 AM EDT Office Visit [facility] ADULT D[facility] [address] [place] [address] Dilia Paulson DDS Need for full coverage dental crown (Primary Dx) 10/07/2024 Travel from Last 3 Months Social History Tobacco [...] 06/19/2019 HPV/Cotest 06/19/2019 COVID-19 Vaccine (4 - 2024-2 6 season) 2024 02/13/2022, 01/09/2021, [...] EDT Need for full coverage dental crown PANORAMIC RADIOGRAPHIC IMAGE Routine 08/16/2024 11:30 AM EDT from Last 3 Months or Most Recently Relevant to Health Maintenance Insurance [facility] MED[facility] ADULT
--- OUTSIDE RECORDS SUMMARY | 2025-01-04 12:23 | XMS_ITS | Encounter Summary ---
Author Organization [employer] Address [address] [place] [address] [address] [place] [address] Care Team Providers Care Air Traffic Controller Name Role Phone Unavailable Primary Care Provider Unavailabl e Reason for Visit * Reason Onset Date Comments rs appt from 12/16/2023 Encounter Details Date Type Department Care Team (Late st Contact Info) Description 12/16/2023 Telephone [facility] [address] [place], [place] [phone] George Quiroz DDS [address], [place] [phone] rs appt from April Social History Tobacco [...]
--- OUTSIDE RECORDS SUMMARY | 2025-01-04 12:23 | XMS_ITS | Encounter Summary ---
Author Organization [employer] Address [address] [place] [address] Care Team Providers Care Sales Representative Public Utilities Name Role Phone Unavailable Primary Care Provider Unavailabl e Encounter Details Date Type Department Care Team (Late st Contact Info) Description 08/30/2022 Telephone [facility] [address] [place] [address] Todd Wade DMD [address] [place] [address] Social History Tobacco Use Types Packs/Day Years [...]
== END 2025-01-04 13:35 | disposition home or self-care (01) ==
LOC: HO.HWS 10:43
PROVIDERS: PCP Internal Medicine; Visit Provider Advanced Practice Midwife
DX: N93.9 Abnormal uterine and vaginal bleeding, unspecified (principal); Z71.2 Person consulting for explanation of examination or test findings
CPT/HCPCS: 99213

== ENCOUNTER → 2025-01-04 10:43 | Outpatient (BNVA) | payer OTHER, SELFPAY | PROVIDERS: PCP Internal Medicine; Visit Provider Advanced Practice Midwife | DX: Z71.2 Person consulting for explanation of examination or test findings (principal); N93.9 Abnormal uterine and vaginal bleeding, unspecified; Z97.5 Presence of (intrauterine) contraceptive device | CPT/HCPCS: 99212 ==

== ENCOUNTER 2025-02-15 14:49 | Outpatient (AMB) | payer OTHER, SELFPAY ==
--- NOTE | 2025-02-15 14:56 | A.OFFVIS_ITS ---
Vital Signs 02/15/25 14:59 Height 5 ft 5 in Weight 343 lb 14.738 oz BMI 57.2 BP 168/108 H Blood Pressure Location Rt brachial Position Sitting Pulse 91 Pulse Source Pulse Oximeter Pulse Oximetry (%) 98 Oxygen Delivery Method Room Air Intake Visit Reasons: Type 2 diabetes mellitus with hyperglycemia Intake Note: NEW Patient presents today to establish treatment for Type 2 Diabetes Mellitus with Hyperglycemia: Glucose data available (sensor/reader/meter/pump): Yes / No Last Diabetic eye exam was on: DUE Last Podiatry exam was on: Patient does not see a Geothermal Operations Engineer Most recent HbA1c: 8.5%, 02/15/2025 Random Glucose: 166 mg/dL Director Of Revenue Cycle Management Required: No Accompanied by: Mother Allergies amoxicillin (Amoxicillin) Allergy (Unknown, Verified 02/15/25 15:01) rash walnut Allergy (Unknown, Verified 02/15/25 15:01) throat itching HPI Comments Details: 34 YO F who is seen in consultation for T2DM at the request of PCP. Initially diagnosed with T2DM in 2019. never saw endo before Was initially started on treatment with metformin .GI side effects from metformin/ glipizide caused hypoglycemia Current regimen Trulicity 4.5 mg Qwkly . Not Checks sugars times per day. Unfortunately, patient did not bring log book, glucometer or sensor to visit . Most recent A1C [], [down] from prior [] on []. Family history of T2DM in paternal grnadfather - ?type 2 DM . Has eyes checked yearly, last eye exam 2 yrs ago , denies retinopathy. Has neuropathy, last foot exam [], Not sees podiatry. Denies nephropathy, on ZANE/ARB. UAC [] as measured on []. Has HLD, Not on statin. Last LDL [] as measured on []. Denies CAD. Not Had diabetes education. [facility] Medical History IUD (intrauterine device) in place Right-sided back pain H/O bipolar disorder Suicidal thoughts Irritable bowel syndrome Fibromyalgia Diabetes Insomnia Leukocytosis Thrombocytosis Acute anxiety Depression Anemia HTN (hypertension) Asthma Surgical History History of esophagogastroduodenoscopy (EGD) History of laparoscopic cholecystectomy Family History Sister Brain tumor Maternal Uncle Throat cancer Paternal Grandmother Leukemia Mother Fibromyalgia Maternal Grandmother Cancer of kidney Brother No problems noted. Brother No problems noted. Other Mental health disorder Substance use disorder Social History Household Members: Family Housing: Apartment Are you a primary customer care agent to a significant other at home: No Do you presently have visiting nurse or other home services: No Alcohol intake: never Patient Tobacco Use Status: Never used Tobacco e-Cigarette/Vaping Use: Never Used Current occupational status: unemployed Sexual orientation: Straight/Heterosexual Gender identity: Female Cognitive needs: No Hearing needs: No Vision needs: No Female Reproductive History Menstrual Age of Menarche: 9 Physical Exam Vital Signs: Last Vital Signs Pulse 91 02/15/25 14:59 BP 168/108 H 02/15/25 14:59 Pulse Ox 98 02/15/25 14:59 Oxygen Delivery Method Room Air 02/15/25 14:59 BMI result Body Mass Index 57.2 Absence of Cushingoid features. Absence of acromegalic features. Neck exam reveals nl size thyroid about 15 gms. No thyroid nodules palpable. No carotid bruits present. Lungs CTA. Heart S1 S2, Reg R/R. No M/R/ G. Skin exam reveals absence of vitiligo or acanthosis nigricans. Abdominal exam reveals Soft NT/ND with NA BS. No organomegaly present. Neck Other: . Extrem Other: Visual exam of foot performed. No ulcerations or open lesions. No onchomycosis, no callouses.Pulses 2 + distally Sensation intact to monofilament exam. Vibratory sensation sensed is intact with 128 Hz tuning fork Results AMB Hemoglobin A1c AMB Hemoglobin A1c 8.5 % Last Edit by WAGNER Johnson on 02/15/25 15:14 Results Reviewed Results Reviewed: Laboratory Last Values Glucose (Clinic) 166 mg/dL (60-115) H 02/15/25 15:06 Hgb A1c (Clinic) 8.5 % (4.0-6.0) H 02/15/25 15:09 Assessment & Plan Assessment & Plan (1) Diabetes: Code(s): E11.9 - Type 2 diabetes mellitus without complications Category: Medical Qualifiers: Diabetes mellitus complication detail: with other skin complication Diabetes mellitus complication status: with skin complications Diabetes mellitus bridge manager insulin use: without senior care use Diabetes mellitus type: type 2 Qualified Code(s): E11.628 - Type 2 diabetes mellitus with other skin complications Plan: This is a 34-year-old female with a history of type 2 diabetes being managed with Trulicity with prove but poor glycemic control and no known microvascular or macrovascular complication. Plan is to have the patient check her point of care several times a day or 2 initiate a sensor namely Mauricio 3+. We will refer the patient to critical care educator and milieu counselor. We will be switching the G LP 1 from Trulicity to Mounjaro which would be more effective in terms of glycemic control and weight loss. We will also talk to the patient about potentially initiating a statin and warned her not to get on the statin. We may also need to initiate insulin depending upon results of sensor pattern. Went over the correlation of poor glycemic control to development of progression of complications with the patient. We will have patient returned to see primary care diabetes team in 6 weeks. I went over side effects of Mounjaro including but not limited to nausea, vomiting and rare risk of pancreatitis Orders: Orders AMB Hemoglobin A1c Today E11.65 - Type 2 diabetes mellitus with hyperglycemia Lipid Panel 6 Weeks E11.628 - Type 2 diabetes mellitus with other skin complications Referrals Nutrition/Dietitian Referral E11.628 - Type 2 diabetes mellitus with other skin complications Diabetes Education Referral E11.628 - Type 2 diabetes mellitus with other skin complications Medications: New atorvastatin (Lipitor) 10 mg PO BEDTIME 30 tabs 4RF Mounjaro (tirzepatide) for 4 weeks 2.5 mg (0.5 mL) subcut QWEEK 2 mL 4RF NS Discontinued dulaglutide Discontinued Reason: Doctor's Order 4.5 mg (0.5 mL) subcut QWEEK 90 days 6.5 mL 0RF Coding Level of Care Code New Pt Level 5 (80253) Diagnoses Type 2 diabetes mellitus with other skin complication, without long-term current use of insulin E11.628 Diabetes mellitus complication detail: with other skin complication Diabetes mellitus complication status: with skin complications Diabetes mellitus senior care insulin use: without senior care use Diabetes mellitus type: type 2
[2025-02-15 14:59] VITALS: BP 168/108; PULSE 91; O2SAT 98; BMI 57.2
[2025-02-15 15:09] LABS: Glucose, Whole Blood 166 mg/dL (60-115)
--- OUTSIDE RECORDS SUMMARY | 2025-02-15 16:06 | XMS_ITS | Encounter Summary ---
Author Organization [employer] Address [address] [place] [address] [address] [place] [address] Care Team Providers Care Aluminum Shingle Roofer Name Role Phone Unavailable Primary Care Provider Unavailabl e Reason for Visit * Reason Onset Date Comments rs appt from 12/16/2023 Encounter Details Date Type Department Care Team (Late st Contact Info) Description 12/16/2023 Telephone [facility] [address] [place], [place] [phone] George Quiroz DDS [address] [place], [place] [phone] rs appt from April Social History Tobacco [...]
--- OUTSIDE RECORDS SUMMARY | 2025-02-15 16:06 | XMS_ITS | Clinical Summary ---
Author Organization [employer] Address [address] [place] [address] Care Team Providers Care Press Set Up Person Name Role Phone Unavailable Primary Care Provider [...] not crush, chew, or split. 30 tablet Active Active Problems Problem Noted Date Diagnosed Date Pain, dental 08/16/2024 Dental caries into pulp 08/16/2024 Social History Tobacco Use Types Packs/Day Years [...] Most Recently Relevant to Health Maintenance Insurance [facility] MEDICAID STAND ADULT
--- OUTSIDE RECORDS SUMMARY | 2025-02-15 16:06 | XMS_ITS | Encounter Summary ---
Author Organization [employer] Address [address] [place] [address] Care Team Providers Care Manager Administrative Services Name Role Phone Unavailable Primary Care Provider Unavailabl e Encounter Details Date Type Department Care Team (Late st Contact Info) Description 08/30/2022 Telephone [facility] [address] [place] [address] Todd Wade DMD [address] [place] [address] Social History Tobacco Use Types Packs/Day Years [...]
== END 2025-02-15 15:43 | disposition home or self-care (01) ==
LOC: HO.ENCR 14:50
PROVIDERS: PCP Internal Medicine; Visit Provider Internal Medicine Endocrinology, Diabetes & Metabolism
DX: E11.65 Type 2 diabetes mellitus with hyperglycemia (principal); E11.628 Type 2 diabetes mellitus with other skin complications
CPT/HCPCS: 99205

== ENCOUNTER → 2025-02-15 14:49 | Outpatient (BNVA) | payer OTHER, SELFPAY | PROVIDERS: PCP Internal Medicine; Visit Provider Internal Medicine Endocrinology, Diabetes & Metabolism | DX: E11.628 Type 2 diabetes mellitus with other skin complications (principal); E11.65 Type 2 diabetes mellitus with hyperglycemia; Z79.85 Long-term (current) use of injectable non-insulin antidiabetic drugs | CPT/HCPCS: 82947; 83036; 99202 ==

== ENCOUNTER 2025-02-22 14:25 | Outpatient (REF) | payer OTHER, SELFPAY ==
--- NOTE | ~2025-02-22 | US_ITS ---
EXAMINATION: US PELVIS CLINICAL INFORMATION: Pinching sensation after IUD placement November 2024 COMPARISON: Previous pelvic ultrasound most recent November 2022 TECHNIQUE: Ultrasound of the pelvis is performed using both transabdominal and transvaginal transducers along with Doppler. Transvaginal imaging is performed due to inadequate visualization transabdominally. FINDINGS: Uterus: The uterus is anteverted and measures 9.7 x 4.7 x 5.7 cm. Normal thickness endometrium. The double wall endometrial thickness is 4 mm. No endometrial fluid or mass. The uterus is smooth in contour and has normal myometrial echogenicity. No visible fibroid. IUD appears to be located in the cervix 5.9 cm from the top of the uterine fundus. There are nabothian cysts and calcifications in the cervix. This limits visualization of the IUD. Adnexa: The right ovary is visualized. There is normal color flow to the adnexa. There is no ovarian torsion. There is no pelvic ascites or fluid collection. Right ovary measures 2.3 x 1.6 x 1.6 cm. Normal Left ovary is not seen. US/US pelvic and transvaginal IMPRESSION: IUD in the cervix. IUD is difficult to visualize due to nabothian cysts and calcifications in the cervix. Normal right ovary. Left ovary not seen. Electronically signed by: Alyssia Kenyon MD 02/22/2025 03:38 PM EST
--- OUTSIDE RECORDS SUMMARY | 2025-02-22 18:08 | XMS_ITS | Encounter Summary ---
Author Organization [employer] Address [address] [place] [address] [address] [place] [address] Care Team Providers Care Custom Seamstress Name Role Phone Unavailable Primary Care Provider Unavailabl e Reason for Visit * Reason Onset Date Comments rs appt from 12/16/2023 Encounter Details Date Type Department Care Team (Late st Contact Info) Description 12/16/2023 Telephone [facility] [address] [place], [place] [phone] George Quiroz DDS [address] [place], [place] [phone] rs appt from April Social History Tobacco [...]
--- OUTSIDE RECORDS SUMMARY | 2025-02-22 18:08 | XMS_ITS | Clinical Summary ---
Author Organization [employer] Address [address] [place] [address] Care Team Providers Care Residential Real Estate Appraiser Name Role Phone Unavailable Primary Care Provider [...] Most Recently Relevant to Health Maintenance Insurance [facility] MEDICAID STAND ADULT
--- OUTSIDE RECORDS SUMMARY | 2025-02-22 18:08 | XMS_ITS | Encounter Summary ---
Author Organization [employer] Address [address] [place] [address] Care Team Providers Care Granular Operator Name Role Phone Unavailable Primary Care Provider Unavailabl e Encounter Details Date Type Department Care Team (Late st Contact Info) Description 08/30/2022 Telephone [facility] [address] [place] [address] Todd Wade DMD [address] [place] [address] Social History Tobacco Use Types Packs/Day Years [...]
== END 2025-02-22 14:26 | disposition home or self-care (01) ==
LOC: HO.US 14:25
PROVIDERS: PCP Internal Medicine; Visit Provider Nurse Practitioner Family
DX: T83.9XXA Unspecified complication of genitourinary prosthetic device, implant and graft, initial encounter (principal)
CPT/HCPCS: 76830; 76856

== ENCOUNTER → 2025-02-22 14:27 | Outpatient (BNV) | payer OTHER, SELFPAY | PROVIDERS: PCP Internal Medicine; Visit Provider Radiology Diagnostic Radiology | DX: T83.39XA Other mechanical complication of intrauterine contraceptive device, initial encounter (principal) | CPT/HCPCS: 76830; 76856 ==